=== PATIENT | female | born 1970 | race African-American/Black ===

== ENCOUNTER 2018-03-17 13:43 | Emergency (ER) | payer OTHER ==
[2018-03-17 17:13] LABS: Absolute Lymphocytes (CBC) 2.6 K/uL (0.7-4.9); Absolute Monocytes 0.6 K/uL (0.1-1.3); Absolute Neutrophil 2.7 K/uL (1.8-8.0); Basophils % 0.5 % (0-1.3); Eosinophils % 1.2 % (0-4.4); Hematocrit 34.3 % (36.0-45.0); Lymphocytes % 44.1 % (15.3-44.8); MPV 9.1 fL (7.6-11.3); Monocytes % 9.5 % (3.3-12.3)
[2018-03-17 17:18] LABS: Protime INR 1.01
--- NOTE | 2018-03-17 17:19 | RAD REPORT ---
EXAM DESCRIPTION: US - Extremity Venous Uni Ltd - 03/17/2018 4:49 pm CLINICAL HISTORY: Right leg pain and swelling COMPARISON: None. TECHNIQUE: Real-time sonographic evaluation of the right lower extremity deep venous systems was per formed. FINDINGS: Normal compressibility, flow augmentation, phasic flow and spontaneous flow are identified in the right lower extremity common femoral and superficial femoral veins. Hypoechoic material is pr esent filling all or most of the right popliteal vein. On Doppler evaluation little blood flow was id entifiable through this region. No DVT seen at the ankle veins. No mass or abnormal fluid collection in the soft tissues. Exam is limited by body habitus. IMPRESSION: Right popliteal vein acute deep venous thrombosis.
[2018-03-17 17:27] LABS: Potassium 4.2 mmol/L (3.5-5.1)
--- NOTE | 2018-03-17 17:36 | ER ---
Nurse's Notes [facility] Name: Mahsa Joseph Age: 47 yrs Sex: Female : 1970 Arrival Date: 03/17/2018 Time: 13:46 Bed Treatment Private MD: MELONY HALL Diagnosis: Acute embolism and thrombosis of deep veins of lower extremity Presentation: 03/17 14:02 Presenting complaint: Patient states: i was at physical therapy for L foot injury; the hj R foot is very swollen and my calf is swollen; and its painful and tender to the touch;. Transition of care: patient was not received from another setting of care. Onset of symptoms was March 17, 2018. Risk Assessment: Do you want to hurt yourself or someone else? Patient reports no desire to harm self or others. Initial Sepsis Screen: Does the patient meet any 2 criteria? No. Patient's initial sepsis screen is negative. Does the patient have a suspected source of infection? No. Patient's initial sepsis screen is negative. Care prior to arrival: None. 14:02 Method Of Arrival: Ambulatory 14:02 Acuity: MILAGROS 3 hj Triage Assessment: 14:05 General: Appears in no apparent distress. uncomfortable, Behavior is calm, cooperative, hj appropriate for age. Pain: Complains of pain in right leg. 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 - Social history:: Smoking status: Patient/guardian denies using tobacco, Patient/guardian denies using alcohol. - Ebola Screening: : Patient negative for fever greater than or equal to 101.5 degrees Fahrenheit, and additional compatible Ebola Virus Disease symptoms Patient denies exposure to infectious person Patient denies travel to an Ebola-affected area in the 21 days before illness onset. Screenin:05 Abuse screen: Denies threats or abuse. Denies injuries from another. Nutritional hj screening: No deficits noted. Tuberculosis screening: No symptoms or risk factors identified. Fall Risk None identified. Assessment: 15:09 General: Appears in no apparent distress. comfortable, Behavior is calm, cooperative. mg2 Pain: Complains of pain in right foot and right leg Pain does not radiate. Pain currently is 7 out of 10 on a pain scale. Quality of pain is described as aching, Pain began gradually, 2-3 days ago. Is intermittent. Neuro: Level of Consciousness is awake, alert, obeys commands, Oriented to person, place, time, situation. Cardiovascular: Capillary refill < 3 seconds Patient's skin is warm and dry. Respiratory: Airway is patent Respiratory effort is even, unlabored, Respiratory pattern is regular, symmetrical. GI: No signs and/or symptoms were reported involving the gastrointestinal system. : No signs and/or symptoms were reported regarding the genitourinary system. EENT: No signs and/or symptoms were reported regarding the EENT system. Derm: Skin is intact, is healthy with good turgor, Skin is pink, warm \T\ dry. normal. Musculoskeletal: Circulation, motion, and sensation intact. Capillary refill < 3 seconds, Swelling present in right foot. 16:04 Reassessment: patient sent to ultrasound. mg2 18:28 Reassessment: Patient appears in no apparent distress at this time. Patient and/or mg2 family updated on plan of care and expected duration. Pain level reassessed. Patient is alert, oriented x 3, equal unlabored respirations, skin warm/dry/pink. Vital Signs: 14:05 BP 131 / 68; Pulse 59; Resp 18; Temp 97.8(TE); Pulse Ox 99% on R/A; Weight 124.74 kg; Height 5 ft. 6 in. (167.64 cm); Pain 4/10; 18:29 BP 128 / 78; Pulse 60; Resp 18; Pulse Ox 100% on R/A; Pain 2/10; mg2 14:05 Body Mass Index 44.39 (124.74 kg, 167.64 cm) ED Course: 13:46 Patient arrived in ED. rg4 13:46 MELONY HALL is Private Physician. rg4 14:04 Triage completed. 14:05 Arm band placed on right wrist. 14:07 Patient has correct armband on for positive identification. Bed in low position. Call light in reach. Side rails up X 1. Adult w/ patient. 15:03 Esau King, RN is Primary Nurse. mg2 15:10 No provider procedures requiring assistance completed. mg2 15:16 Agustin Melvin PA is PHCP. jr8 15:16 Ricardo Rao MD is Attending Physician. jr8 16:06 Patient taken to ultrasound. via stretcher. lc3 16:51 US Extremity Venous Unilateral Ltd In Process Unspecified. EDMS 16:58 Ultrasound completed. Patient tolerated well. lc3 17:12 Inserted saline lock: 20 gauge in left antecubital area, using aseptic technique. Blood mg2 collected. 17:35 MELONY HALL is Referral Physician. jr8 18:29 IV discontinued, intact, bleeding controlled, No redness/swelling at site. Pressure mg2 dressing applied. Administered Medications: 18:28 Drug: Eliquis 10 mg Route: PO; mg2 18:28 Follow up: Response: No adverse reaction; Medication administered at discharge. mg2 Outcome: 17:36 Discharge ordered by MD. jr8 18:29 Discharged to home ambulatory. mg2 18:29 Condition: stable 18:29 Discharge instructions given to patient, Instructed on discharge instructions, follow up and referral plans. medication usage, Demonstrated understanding of instructions, follow-up care, medications, Prescriptions given X 1. 18:29 Patient left the ED. mg2 Signatures: Dispatcher [employer] EDMA Agustin Melvin PA PA jr8 Sina Amaro, RN RN Robert Garcia Rubi rg4 Esau King, RN RN mg2 Corrections: (The following items were deleted from the chart) 14:09 14:05 Pulse 59bpm; Resp 18bpm; Pulse Ox 99% RA; Temp 97.8F Temporal; 124.74 kg; Height hj 5 ft. 6 in.; BMI: 44.3; Pain 4/10; hj
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
[2018-03-17] MEDS ORDERED: APIXABAN 5 MG TABLET ONE (18:24)
== END 2018-03-17 18:29 | disposition home or self-care (01) ==
LOC: ER 13:43
DX: I82.4Z1 Acute embolism and thrombosis of unspecified deep veins of right distal lower extremity (principal); I10 Essential (primary) hypertension; E03.9 Hypothyroidism, unspecified
CPT/HCPCS: 36415; 80048; 85025; 85610; 85730; 93971; 99284

== ENCOUNTER 2018-04-19 16:05 | Emergency (ER) | payer OTHER ==
--- NOTE | 2018-04-19 17:58 | EDPHYS ---
Physician Documentation [facility] Name: Mahsa Joseph Age: 47 yrs Sex: Female : 1970 Arrival Date: 04/19/2018 Time: 16:08 Bed 15 Private MD: MELONY HALL ED Physician Deshaun Delacruz HPI: 04/19 17:54 This 47 yrs old Black Female presents to ER via Ambulatory with complaints of Rash. jr8 17:54 The patient's rash thought to be caused by an unknown cause. The rash is located on the jr8 back and chest. The rash can be described as papular. Onset: The symptoms/episode began/occurred acutely, yesterday. Associated signs and symptoms: Pertinent positives: itching. Severity of symptoms: At their worst the symptoms were mild in the emergency department the symptoms are unchanged. The patient has not experienced similar symptoms in the past. The patient has not recently seen a physician. Historical: - Allergies: 16:24 Claritin; la1 - PMHx: 16:24 Hypertension; Hypothyroidism; la1 - Immunization history:: Adult Immunizations up to date. - Social history:: Smoking status: Patient/guardian denies using tobacco. - Ebola Screening: : No symptoms or risks identified at this time. ROS: 17:54 Eyes: Negative for injury, pain, redness, and discharge, ENT: Negative for injury, jr8 pain, and discharge, Neck: Negative for injury, pain, and swelling, Cardiovascular: Negative for chest pain, palpitations, and edema, Respiratory: Negative for shortness of breath, cough, wheezing, and pleuritic chest pain, Abdomen/GI: Negative for abdominal pain, nausea, vomiting, diarrhea, and constipation, Back: Negative for injury and pain, MS/Extremity: Negative for injury and deformity, Neuro: Negative for headache, weakness, numbness, tingling, and seizure. 17:54 Skin: Positive for rash, of the chest and back. Exam: 17:54 Eyes: Pupils equal round and reactive to light, extra-ocular motions intact. Lids and jr8 lashes normal. Conjunctiva and sclera are non-icteric and not injected. Cornea within normal limits. Periorbital areas with no swelling, redness, or edema. ENT: Nares patent. No nasal discharge, no septal abnormalities noted. Tympanic membranes are normal and external auditory canals are clear. Oropharynx with no redness, swelling, or masses, exudates, or evidence of obstruction, uvula midline. Mucous membranes moist. Neck: Trachea midline, no thyromegaly or masses palpated, and no cervical lymphadenopathy. Supple, full range of motion without nuchal rigidity, or vertebral point tenderness. No Meningismus. Cardiovascular: Regular rate and rhythm with a normal S1 and S2. No gallops, murmurs, or rubs. Normal PMI, no JVD. No pulse deficits. Respiratory: Lungs have equal breath sounds bilaterally, clear to auscultation and percussion. No rales, rhonchi or wheezes noted. No increased work of breathing, no retractions or nasal flaring. Abdomen/GI: Soft, non-tender, with normal bowel sounds. No distension or tympany. No guarding or rebound. No evidence of tenderness throughout. Back: No spinal tenderness. No costovertebral tenderness. Full range of motion. MS/ Extremity: Pulses equal, no cyanosis. Neurovascular intact. Full, normal range of motion. Neuro: Awake and alert, GCS 15, oriented to person, place, time, and situation. Cranial nerves II-XII grossly intact. Motor strength 5/5 in all extremities. Sensory grossly intact. Cerebellar exam normal. Normal gait. 17:54 Skin: fine papular rash noted to upper chest and back. Not pustular or petechial. No other rashes noted . Vital Signs: 16:25 Pulse 65; Resp 18; Temp 97.4(TE); Pulse Ox 98% on R/A; Weight 116.12 kg; Height 5 ft. 7 la1 in. (170.18 cm); 16:28 BP 132 / 74; la1 16:25 Body Mass Index 40.09 (116.12 kg, 170.18 cm) la1 MDM: 17:21 Patient medically screened. jr8 17:54 Data reviewed: vital signs, nurses notes, and as a result, I will discharge patientaggie continue to observe the patient. Data interpreted: Pulse oximetry: on room air is 98 %. Interpretation: normal. Counseling: I had a detailed discussion with the patient and/or guardian regarding: the historical points, exam findings, and any diagnostic results supporting the discharge/admit diagnosis, the need for outpatient follow up, a family practitioner, to return to the emergency department if symptoms worsen or persist or if there are any questions or concerns that arise at home. Administered Medications: No medications were administered Disposition: 18:57 Co-signature as Attending Physician, Deshaun Delacruz MD Available for consultation at ps1 all times . Disposition: 04/19/18 17:57 Discharged to Home. Impression: Rash and other nonspecific skin eruption. - Condition is Stable. - Discharge Instructions: Rash. - Prescriptions for Prednisone 20 mg Oral Tablet - take 1 tablet by ORAL route once daily for 5 days; 5 tablet. - Medication Reconciliation Form, Thank You Letter, Antibiotic Education, Prescription Opioid Use form. - Follow up: MELONY HALL; When: 5 - 6 days; Reason: Recheck today's complaints, Continuance of care, Re-evaluation by your physician. - Problem is new. - Symptoms have improved. Signatures: Rell Perez, WINCH STRIPPER WINCH STRIPPER Agsutin Morrison PA PA jr8 James Gregory RN RN la1 Deshaun Delacruz MD MD ps1 Corrections: (The following items were deleted from the chart) 18:29 17:57 04/19/2018 17:57 Discharged to Home. Impression: Rash and other nonspecific skin em eruption. Condition is Stable. Forms are Medication Reconciliation Form, Thank You Letter, Antibiotic Education, Prescription Opioid Use. Follow up: MELONY HALL; When: 5 - 6 days; Reason: Recheck today's complaints, Continuance of care, Re-evaluation by your physician. Problem is new. Symptoms have improved. jr8
--- NOTE | 2018-04-19 17:58 | ER ---
Nurse's Notes [facility] Name: Mahsa Joseph Age: 47 yrs Sex: Female : 1970 Arrival Date: 04/19/2018 Time: 16:08 Bed 15 Private MD: MELONY HALL Diagnosis: Rash and other nonspecific skin eruption Presentation: 04/19 16:24 Presenting complaint: Patient states: I have had an itchy rash on both sides of chest la1 and around my back on my left side since yesterday. Transition of care: patient was not received from another setting of care. Onset of symptoms was April 19, 2018. Risk Assessment: Do you want to hurt yourself or someone else? Patient reports no desire to harm self or others. Initial Sepsis Screen: Does the patient meet any 2 criteria? No. Patient's initial sepsis screen is negative. Does the patient have a suspected source of infection? No. Patient's initial sepsis screen is negative. Care prior to arrival: None. 16:24 Method Of Arrival: Ambulatory la1 16:24 Acuity: MILAGROS 4 la1 Historical: - Allergies: 16:24 Claritin; la1 - PMHx: 16:24 Hypertension; Hypothyroidism; la1 - Immunization history:: Adult Immunizations up to date. - Social history:: Smoking status: Patient/guardian denies using tobacco. - Ebola Screening: : No symptoms or risks identified at this time. Screenin:58 Abuse screen: Denies threats or abuse. Nutritional screening: No deficits noted. em Tuberculosis screening: No symptoms or risk factors identified. 17:58 Fall Risk None identified. em Assessment: 18:00 General: Appears in no apparent distress. comfortable, Behavior is calm, cooperative, em rash that started yesterday evening, reports it being itchy. Pain: Denies pain. Neuro: Level of Consciousness is awake, alert, obeys commands, Oriented to person, place, time, situation. Cardiovascular: Patient's skin is warm and dry. Respiratory: Airway is patent Respiratory effort is even, unlabored, Respiratory pattern is regular, symmetrical, Breath sounds are clear bilaterally. Denies shortness of breath. GI: Abdomen is flat. Derm: Skin is intact, Rash noted that is itchy, red, raised, on chest and back. Musculoskeletal: Range of motion: intact in all extremities. 18:00 Reassessment: I agree with assessment completed by Rell Perez LVN . aa5 Vital Signs: 16:25 Pulse 65; Resp 18; Temp 97.4(TE); Pulse Ox 98% on R/A; Weight 116.12 kg; Height 5 ft. 7 la1 in. (170.18 cm); 16:28 BP 132 / 74; la1 16:25 Body Mass Index 40.09 (116.12 kg, 170.18 cm) la1 ED Course: 16:08 Patient arrived in ED. mr 16:08 MELONY HALL is Private Physician. mr 16:24 Arm band placed on left wrist. la1 16:25 Triage completed. la1 17:21 Agustin Melvin PA is PHCP. jr8 17:21 Deshaun Delacruz MD is Attending Physician. jr8 17:48 Rell Perez LVN is Primary Nurse. em 17:56 MELONY HALL is Referral Physician. jr8 17:58 Patient has correct armband on for positive identification. Bed in low position. Call em light in reach. Side rails up X 1. 18:29 No provider procedures requiring assistance completed. Patient did not have IV access em during this emergency room visit. Administered Medications: No medications were administered Outcome: 17:57 Discharge ordered by . jr8 18:29 Discharged to home ambulatory. em 18:29 Condition: good 18:29 Discharge instructions given to patient, Instructed on discharge instructions, follow up and referral plans. medication usage, Demonstrated understanding of instructions, follow-up care, medications, Prescriptions given X 1. 18:29 Patient left the ED. em Signatures: Adrianne Verma mr Perez MARVA Zacarias LVN em Anastasiya Cates, RN RN aa5 Agustin Melvin PA PA jrJames Valentine RN RN la1
== END 2018-04-19 18:29 | disposition home or self-care (01) ==
LOC: ER 16:05
DX: R21 Rash and other nonspecific skin eruption (principal)
CPT/HCPCS: 99282

== ENCOUNTER 2020-07-21 10:50 | Day surgery (SDC) | payer OTHER, SELFPAY ==
[2020-07-18 15:14] LABS: Protime INR 0.96
--- NOTE | 2020-07-18 15:21 | RAD REPORT ---
EXAM DESCRIPTION: RAD - Chest Pa And Lat (2 Views) - 07/18/2020 3:07 pm CLINICAL HISTORY: preop, pending cardiac catheterization COMPARISON: June 2015 TECHNIQUE: Frontal and lateral views of the chest were obtained. FINDINGS: The lungs are clear. Heart size is normal and central vasculature is within normal limit s. No pleural effusion or pneumothorax seen. No acute bone finding. Right convex scoliotic curvatur e spans the entire length of the thoracic spine. Endplate spurring changes are present No aortic abno rmality. IMPRESSION: No acute cardiopulmonary process.
[2020-07-18 15:23] LABS: Absolute Lymphocytes (CBC) 2.5 K/uL (0.7-4.9); Basophils % 0.4 % (0-1.3); Hematocrit 36.5 % (36.0-45.0); Lymphocytes % 60.5 % (15.3-44.8); MPV 8.8 fL (7.6-11.3); RBC Red Blood Cell Count 3.72 M/uL (3.86-4.86)
[2020-07-18 15:25] LABS: Potassium 4.5 mmol/L (3.5-5.1)
[2020-07-18 23:35] LABS: Blood Morphology Comment NOTED (NOT SEEN); Platelet Estimate ADEQ
[2020-07-18 23:36] LABS: Burr Cells 2+
--- NOTE | 2020-07-19 11:19 | EKG ---
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
[2020-07-21] MEDS ORDERED: NA CHLORIDE 0.9% 500 ML ONE (11:14)
[2020-07-21] MEDS ORDERED: HEPARIN 5000 UNIT/ML 1 ML VIAL ONE (11:15)
[2020-07-21] MEDS ORDERED: HEPA 1000U/500MLS 2,000 UNIT/1,000 ML BAG IV ONE (11:15)
[2020-07-21] MEDS ORDERED: VERAPAMIL HCL 10 MG/4 ML VIAL IV ONE (11:16)
[2020-07-21] MEDS ORDERED: FENTANYL CITR 100 MCG/2 ML ONE (11:16)
[2020-07-21] MEDS ORDERED: MIDAZOLAM HCL 2 MG/2 ML INJ ONE (11:16)
[2020-07-21] MEDS ORDERED: ATROPINE SULF 1 MG/10 ML SYR IV ONE (11:17)
[2020-07-21] MEDS ORDERED: NITROGLYCERIN 100 MCG/ML SYR (for cath lab use only) IV ONE (11:17)
[2020-07-21] MEDS ORDERED: NITROGLYCERIN/D5W 25 MG/250 ML BTL IV ONE (11:17)
[2020-07-21] MEDS ORDERED: LIDOCAINE 1% 20 ML MDV ONE (11:17)
[2020-07-21] MEDS ORDERED: HEPARIN 10,000 UNIT/10 ML VIAL IV ONE (11:17)
[2020-07-21 11:38] VITALS: TEMP 96.4
[2020-07-21 13:29] VITALS: O2SAT 99
[2020-07-21 16:46] VITALS: BP 110/78
--- NOTE | 2020-07-21 22:53 | OP ---
Date of Procedure: 07/21/2020 Surgeon: KIERA SAGE Procedure Performed: Selective coronary angiogram. Access: Right radial artery 6-B[place] closed with TR band. Indication: Chest pain with abnormal stress test. Complications: None. Bleeding: Less than 10 mL. Description Of Procedure: After risks, benefits, and alternatives were explained, the patient agreed to the procedure and signed informed consent. The patient was brought to the cardiac catheterizatio n laboratory, prepped and draped in usual sterile fashion. Then, we accessed right radial artery usi ng pediatric micropuncture kit and placed a 6-Bah[place]i slender sheath. Subsequently, took a 5-[place]ah[place]i T iger 4.0 catheter into the aortic root over a J-wire, engaged left main and right coronary artery, to ok standard views and then removed the catheter and the sheath, and placed TR band with good hemostas is. Findings: 1.Left main is large and normal. 2.LAD is large and normal. 3.Left circumflex is a very large and dominant vessel, and normal. 4.RCA, small, nondominant, no disease. Conclusion: Normal coronary arteries and falsely positive stress test. Plans: Medical management. SR/MODL Voice ID: [id number] Report ID: [id number]
== END 2020-07-21 15:28 | disposition home or self-care (01) ==
LOC: CCL 10:50
PROVIDERS: ATTEND Internal Medicine
DX: R94.39 Abnormal result of other cardiovascular function study (principal); R07.9 Chest pain, unspecified; I10 Essential (primary) hypertension; E78.5 Hyperlipidemia, unspecified; Z20.822 Contact with and (suspected) exposure to COVID-19; Z01.810 Encounter for preprocedural cardiovascular examination; Z82.49 Family history of ischemic heart disease and other diseases of the circulatory system
CPT/HCPCS: 93005; 85025; 80048; 36415; 85610; 85730; 71046; 93454; U0002; C1893; J1644 ×2; J2250; J3010; J7040

== ENCOUNTER 2020-08-24 05:56 | Inpatient (IN) | payer OTHER, SELFPAY ==
[2020-08-19 08:58] LABS: Absolute Lymphocytes (CBC) 1.5 K/uL (0.7-4.9); Basophils % 0.3 % (0-1.3); Hematocrit 35.3 % (36.0-45.0); Lymphocytes % 45.1 % (15.3-44.8); MPV 8.3 fL (7.6-11.3); RBC Red Blood Cell Count 3.65 M/uL (3.86-4.86)
[2020-08-19 09:12] LABS: Protime INR 0.97
[2020-08-19 09:17] LABS: Potassium 4.7 mmol/L (3.5-5.1)
[2020-08-19 10:52] LABS: Blood Morphology Comment NOT SEEN (NOT SEEN); Platelet Estimate ADEQ; White Blood Cell Scan OK (OK)
[2020-08-24] MEDS ORDERED: Ringers Lactate 1,000 ML IV ONE ×3 (06:29→12:10)
[2020-08-24] MEDS ORDERED: CEFAZOLIN/SWI 1gm 1 GM/10 ML SYR ONE ×2 (06:29→07:07)
[2020-08-24] MEDS ORDERED: LIDOCAINE 2% MPF 5 ML VIAL ONE (06:30)
[2020-08-24] MEDS ORDERED: MIDAZOLAM HCL 2 MG/2 ML INJ ONE (06:30)
[2020-08-24] MEDS ORDERED: FENTANYL CITR 100 MCG/2 ML ONE (06:30)
[2020-08-24] MEDS ORDERED: propofoL 200 MG/20 ML VIAL IV ONE (06:30)
[2020-08-24] MEDS ORDERED: LIDOCAINE 1% MPF 5 ML VIAL ONE (06:36)
[2020-08-24] MEDS ORDERED: NS 0.9% VIAL 10 ML ONE (06:36)
[2020-08-24] MEDS ORDERED: BUPIVACAINE 0.25% PF 30 ML VIAL ONE (06:36)
[2020-08-24] MEDS ORDERED: dexAMETHasone 4 MG/ML VIAL ONE (06:36)
[2020-08-24] MEDS ORDERED: HYDROMORPHONE HCL 1 MG/ML INJ ONE (07:31)
[2020-08-24] MEDS ORDERED: ONDANSETRON 4 MG/2 ML VIAL ONE (07:42)
[2020-08-24] MEDS ORDERED: KETAMINE HCL 500 MG/5 ML VIAL ONE (07:59)
[2020-08-24] MEDS ORDERED: TRANEXAMIC ACID 1,000 MG in NA CHLORIDE 0.9% 50 ML IV SCH (08:00)
[2020-08-24] MEDS ORDERED: KETOROLAC 30 MG/ML INJ ONE (10:39)
[2020-08-24] MEDS: MEPERIDINE HCL 25 MG/ML SYR ONE ×2 (11:10→11:50)
--- NOTE | 2020-08-24 11:17 | P.BOP ---
Preoperative diagnosis: right knee osteoarthritis Postoperative diagnosis: same Primary procedure: right total knee arthroplasty Earthmoving Labourer: NONE,NONE Estimated blood loss: 30 cc Specimen: right knee bone remnants Anesthesia: General Complications: None Drain(s): Urinary catheter Implants: [employer] Baylee Persona 8 STD femur, F tibia w/ stem, 32 patella, 10 MC poly Fluids & blood products: per anesthesia record; TT: 118 mins @ 300 mmHg Transferred to: Recovery Room Condition: Good
[2020-08-24] MEDS ORDERED: DOCUSATE NA 100 MG CAP PO PRN (11:21)
[2020-08-24] MEDS ORDERED: ONDANSETRON 4 MG/2 ML VIAL IV PRN (11:21)
[2020-08-24] MEDS ORDERED: LABETALOL 20 MG/4ML SYRINGE IV ONE (11:22)
[2020-08-24] MEDS ORDERED: TRAMADOL HCL 50 MG TAB PO PRN (11:25)
[2020-08-24] MEDS: HYDROMORPHONE HCL 1 MG/ML INJ ONE ×2 (12:00→12:05)
[2020-08-24 12:09] LABS: Hematocrit 34.5 % (36.0-45.0)
--- NOTE | 2020-08-24 12:18 | RAD REPORT ---
EXAM DESCRIPTION: RAD - Knee Right 2 View - 08/24/2020 11:44 am CLINICAL HISTORY: Post Opright total knee prosthesis COMPARISON: Knee Right 2 View dated 04/28/2020 FINDINGS: Right total knee prosthesis has been placed. No suspicious or unexpected bone, implant, joint or soft tissue finding.
--- OUTSIDE RECORDS SUMMARY | 2020-08-24 12:38 | XMS REPORT | Continuity of Care Document ---
:1970 Author Organization [facility] t Address [address] [place] [address] Care Team Providers Name Role Phone DESTINY Attending Clinician Unavailable CHASE Attending Clinician Unavailable Problems Condition Condition Condition Status Onset Resolution Last Treating Co mments Source Name Details Category Date Date Treatment Clinician Date Inflammato Problem Active 2020-07-23 M emoria ry 02:45:23 l polyarthro Eb n noé Inflammato ry polyarthro noé Active Problem 07/23/2020 [facility] Elevated Problem Active 2020-07-23 Mem oria sed rate 02:45:23 l Elevated Eb n sed rate Active Problem 07/23/2020 [facility] Seronegati Problem Active 2020-07-23 M emoria ve 02:45:23 l rheumatoid Eb n arthritis Seronegati of right ve knee rheumatoid arthritis of right knee Active Problem 07/23/2020 [facility] Seronegati Problem Active 2020-07-23 M emoria ve 02:45:23 l rheumatoid Eb n arthritis Seronegati of left ve knee rheumatoid arthritis of left knee Active Problem 07/23/2020 [facility] Osteoarthr Problem Active 2020-07-23 M emoria osis 02:45:23 l involving Jas multiple Osteoarthr sites but osis not involving designated multiple as sites but generalize not d designated as generalize d Active Problem 07/23/2020 [facility] Pain in Problem Active 2020-07-23 Carmelo loulou joint, 02:45:23 l multiple Pain in Sadia nn sites joint, multiple sites Active Problem 07/23/2020 [facility] Encounter Problem Active 2020-07-23 Me moria for 02:45:23 l long-term [place] (current) Encounter use of for other long-term medication (current) s use of other medication s Active Problem 07/23/2020 [facility] Other Problem Active 2020-07-23 Memor ia specified 02:45:23 l abnormal Other [place] findings specified of blood abnormal chemistry findings of blood chemistry Active Problem 07/23/2020 [facility] Rheumatoid Problem Active 2020-07-23 M emoria arthritis 02:45:23 l of [place] multiple Rheumatoid sites with arthritis involvemen of t of other multiple organs and sites with systems involvemen t of other organs and systems Active Problem 07/23/2020 [facility] Other Diagnosis Active 2019-11-26 Mem oria specified 02:45:15 l counseling Other Sadia nn specified counseling Active Diagnosis 11/26/2019 [facility] SARS-assoc Diagnosis Active 2019-10-07 Memoria iated 02:46:13 l coronaviru Eb n s exposure SARS-assoc iated coronaviru s exposure Active Diagnosis 10/07/2019 [facility] Iritis Diagnosis Active 2020-06-15 Mem oria 02:46:04 l Iritis Jas Active Diagnosis 06/15/2020 [facility] Renal Diagnosis Active 2020-03-18 Mem oria insufficie 03:45:36 l ncy Renal Jas insufficie ncy Active Diagnosis 03/18/2020 [facility] Pain in Diagnosis Active 2018-10-18 Me moria left knee 02:45:36 l Pain in [place] left knee Active Diagnosis 10/18/2018 [facility] Constipati Problem Active 2020-07-23 M emoria on 02:45:23 l Jas Constipati on Active Problem [facility] Screening Diagnosis Active 2020-06-15 Memoria for 02:46:04 l tuberculos Eb n is Screening for tuberculos is Active Diagnosis 06/15/2020 [facility] Anemia Diagnosis Active 2020-06-15 Mem oria 02:46:04 l Anemia Jas Active Diagnosis 06/15/2020 [facility] Raised Problem Active 2020-07-23 Memor ia antibody 02:45:23 l titer Raised [place] antibody titer Active Problem 07/23/2020 [facility] Osteoarthr Problem Active 2020-07-23 M emoria itis of 02:45:23 l multiple [place] joints, Osteoarthr unspecifie itis of d multiple osteoarthr joints, itis type unspecifie d osteoarthr itis type Active Problem 07/23/2020 [facility] 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) Active Problem 07/23/2020 [facility] Drug or Problem Active 2020-07-23 Carmelo loulou medicinal 02:45:23 l substance Drug or Herm sue causing medicinal adverse substance effect in causing therapeuti adverse c use, effect in initial therapeuti encounter c use, initial encounter Active Problem 07/23/2020 [facility] Fatigue, Problem Active 2020-07-23 Mem oria unspecifie 02:45:23 l d type Fatigue, Eb n unspecifie d type Active Problem 07/23/2020 [facility] Pain in Problem Active 2020-07-23 Carmelo loulou right knee 02:45:23 l Pain in J[place] right knee Active Problem 07/23/2020 [facility] Vitamin D Vitamin D Problem Active Uni vers deficiency deficiency it [facility] of [place] [facility] Leg Leg Problem Active [facility] swelling swelling [facility] of [place] [facility] DVT, DVT, Problem Active [facility] bilateral bilateral ity of lower [place] limbs limbs Physici ans Malabsorpt Malabsorpt Problem Active U nivers ion ion [facility] [place] [facility] Malnutriti Malnutriti Problem Active [facility] n[facility] on on [facility] [place] [facility] Osteoporos Osteoporos Problem Active U nivers is is [facility] [place] [facility] Malabsorpt Malabsorpt Problem Active U nivers ion due to ion due to it y of intoleranc intoleranc [place], not e, not Physici elsewhere elsewhere ans classified classified Allergies, Adverse Reactions, Alerts Allergy Allergy Status Severity Reaction(s) Onset Inactive Treating Comm ents Source Name Type Date Date Clinician N.K.D.A. N.K.D.A. Active Info Not Carmelo loulou Available 3-30 l 00:00: [place] 00 Medications Ordered Filled Start Stop Current Ordering Indication Dosage Frequency Signature Comments Components Source Medication Medication Date Date Medication? Clinician (SIG) Name Name Levothyroxi Yes Latisha 1 tablet Memoria ne Sodium 06-15 Fredy on an l 02:46: empty Jas stomach in the morning Multivitami Yes Latisha as Me moria n 06-15 Fredy directed l 02:46: Jas Tramadol Yes Latisha 1 tablet M emoria HCl 06-15 Fredy as needed l 02:46: Jas Metoprolol Yes Latisha 1 tablet Memoria Tartrate 06-15 Fredy with food l 02:46: Jas Vitamin D Yes Latisha 1 tablet Memoria 06-15 Fredy l 02:46: Jas Clarinex-D Yes Latisha not Mem oria 24 Hour 06-15 Fredy defined l 02:46: Jas Eliquis Yes Latisha as Memori a 06-15 Fredy directed l 02:46: Jas Acetaminoph Yes Latisha 1 tablet Memoria en-Codeine 06-15 Fredy as needed l #3 02:46: Jas Vitamin A Yes Latisha not Carmelo loulou 06-15 Fredy defined l 02:46: Jas Methotrexat Yes Latisha 5 tablets Memoria e 06-15 Fredy l 02:46: Jas Orencia Yes Latisha 1 ml Memori a ClickJect 06-15 Fredy l 02:46: Jas Amlodipine Yes Latisha 1 tablet Memoria Besylate 06-15 Fredy l 02:46: Jas Vitamin Yes Latisha 1 tablet Me moria B-12 06-15 Fredy l 02:46: Jas Simvastatin Yes Latisha TAKE 1 Memoria 06-15 Fredy TABLET BY l 02:46: MOUTH Jas EVERY DAY IN THE EVENING Leflunomide 2019-03 Yes Latisha 1 tablet Memoria 0-13 Fredy l 00:00: Jas Methotrexat Yes Latisha 6 tablets Memoria e 9 Fredy l 02:45: Jas 15 Amlodipine 2020-0 Yes Latisha 1 tablet Memoria Besylate 9-19 Fredy l 02:45: 15 Vitamin 2020-0 Yes Latisha 1 tablet Me moria B-12 9-19 Fredy l 02:45: 15 Folic Acid 2020-0 Yes Apple 3 tablets Memoria 4-08 Vo l 00:00: 00 Folic Acid 2020-0 Yes Latisha 3 tablet Memoria 1-13 Fredy l 00:00: 00 Folic Acid 2020-0 Yes Latisha 3 tablet Memoria 1-13 Fredy l 00:00: 00 Orencia 2020-0 Yes Apple 1 ml Carmelo loulou ClickJect 1-07 Vo l 00:00: 00 Folic Acid 2019-0 Yes Apple 1 tablet Memoria 8-03 Vo l 02:45: 36 Orencia 2019-0 Yes Apple 1 ml Carmelo loulou ClickJect 5-24 Vo l 00:00: 00 Orencia 2019-0 Yes Latisha 1 ml Memori a ClickJect 5-23 Fredy l 00:00: Folic Acid 2019-0 Yes Apple 1 tablet Memoria 3-26 Vo l 00:00: 00 Vital Signs Vital Name Observation Time Observation Value Comments Source Systolic blood 2020-05-25 155 mm[Hg] Location: [facility] 13:07:00 Position: [place] [facility] S[facility] Diastolic blood 2020-05-25 82 mm[Hg] Location: [facility] 13:07:00 Position: [place] [facility] S[facility] Body height 2020-05-25 66 [in_us] [facility] 13:07:00 [place] [facility] Weight 2020-05-25 188 [lb_av] [facility] 13:07:00 [place] [facility] Body mass index 2020-05-25 30.34 kg/m2 [facility] o f (BMI) [Ratio] 13:07:00 [facility] Body temperature 2020-05-25 99.4 [degF] Method: [facility] 13:07:00 Temporal [place] [facility] Heart Rate 2020-05-25 69 /min [facility] 13:07:00 [place] [facility] BP Systolic 2018-12-17 120 mm[Hg] [facility] Position: [place] [facility] S[facility] BP Diastolic 2018-12-17 69 mm[Hg] Location: [facility] 09:44:00 Position: [place] [facility] Sitting Height 2018-12-17 66 [in_us] [facility] 09:44:00 [place] [facility] Weight 2018-12-17 196.6 [lb_av] [facility] 09:44:00 [place] [facility] Body Mass Index 2018-12-17 31.73 kg/m2 University o f Calculated 09:44:00 [place] [facility] Temperature 2018-12-17 97.5 [degF] Method: Oral [facility] 09:44:00 [place] [facility] Heart Rate 2018-12-17 57 /min [facility] 09:44:00 [place] [facility] Weight 2018-08-07 [facility] 19:15:00 Height 2018-08-07 [facility] 19:15:00 Heart Rate 2018-08-07 [facility] 19:15:00 Diastolic (mm Hg) 2018-08-07 [facility] 19:15:00 Systolic (mm Hg) 2018-08-07 [facility] rmann 19:15:00 Weight 2018-07-02 [facility] 18:30:00 Height 2018-07-02 [facility] 18:30:00 Heart Rate 2018-07-02 [facility] 18:30:00 Diastolic (mm Hg) 2018-07-02 [facility] 18:30:00 Systolic (mm Hg) 2018-07-02 [facility] rmann 18:30:00 BP Systolic 2018-05-14 129 mm[Hg] [facility] 12:13:00 [place] [facility] BP Diastolic 2018-05-14 69 mm[Hg] University 12:13:00 [place] [facility] Height 2018-05-14 66 [in_us] [facility] 12:13:00 [place] [facility] Weight 2018-05-14 244 [lb_av] [facility] 12:13:00 [place] [facility] Body Mass Index 2018-05-14 39.38 kg/m2 University o f Calculated 12:13:00 [place] [facility] Temperature 2018-05-14 97.7 [degF] University 12:13:00 [place] [facility] Heart Rate 2018-05-14 54 /min [facility] 12:13:00 [place] [facility] Procedures Procedure Date / Time Performing Clinician Source Performed [Q] COMPREHENSIVE 2020-05-25 00:00:00 [facility] METABOLIC PANEL W/eGFR Physician s (REFL) [Q] QUESTASSURED 25-[place] 2020-05-25 00:00:00 [facility] VIT D, (D2,D3), LC/MS/MS Physici ans [QL] CBC (INCLUDES 2020-05-25 00:00:00 [facility] DIFF/PLT) Physicians [QL] FOLATE, SERUM 2020-05-25 00:00:00 [facility] Physicians [QL] HEMOGLOBIN A1c 2020-05-25 00:00:00 [facility] Physicians [QL] IRON AND TOTAL IRON 2020-05-25 00:00:00 [facility] BINDING CAPACITY Physicians [QL] LIPID PANEL 2020-05-25 00:00:00 [facility] Physicians [QL] PTH, INTACT 2020-05-25 00:00:00 [facility] (WITHOUT CALCIUM) Physicians [QL] TSH, 3RD GENERATION 2020-05-25 00:00:00 [facility] W/REFLEX TO FT4 Physicians [QL] VITAMIN A (RETINOL) 2020-05-25 00:00:00 [facility] Physicians [QL] VITAMIN B1, WHOLE 2020-05-25 00:00:00 [facility] BLOOD Physicians [QL] VITAMIN B12 2020-05-25 00:00:00 [facility] Physicians [QL] VITAMIN E 2020-05-25 00:00:00 [facility] (TOCOPHEROL) Physicians MA Bone Density DXA Dual 2018-12-17 00:00:00 [facility] [id number] Physicians [QLH] VITAMIN B1, WHOLE 2018-07-14 00:00:00 [facility] BLOOD Physicians US Extremity lower 2017-11-19 00:00:00 [facility] venous doppler bilat Physicians [id number] Encounters Start End Encounter Admission Attending Care Care Encounter Source Date/Time Date/Time Type Type Clinicians Facility Department ID 2020-07-21 2020-07-21 Outpatient PRL - PRL - [id number] eClinic 21:12:00 21:12:00 [facility] 2020-07-16 2020-07-16 Outpatient PRL - PRL - [id number] eClinic 09:17:00 09:17:00 [facility] y [facility] 2020-06-20 2020-06-20 Outpatient PRL - PRL - [id number] eClinic 19:17:00 19:17:00 [facility] 2020-06-14 2020-06-14 Outpatient JERED Nicolás RAMSAYU - [id number] eClinic 14:30:00 14:30:00 [facility] 2020-06-07 2020-06-07 Outpatient PRL - PRL - [id number] eClinic 21:19:00 21:19:00 [facility] 2020-05-31 2020-05-31 Outpatient PRL - PRL - [id number] eClinic 10:19:00 10:19:00 [facility] 2020-05-26 2020-05-26 Outpatient PRL - PRL - [id number] eClinic 11:46:00 11:46:00 [facility] 2020-05-25 2020-05-25 Appointmen DARIUSZ DIXON [id number] Univers 12:45:00 12:45:00 ANNA Sharp M.D. Invasive itScarlet M.D. [facility] (FLMIST) ans 2020-05-22 2020-05-22 Outpatient PRL - PRL - [id number] eClinic 13:17:00 13:17:00 [facility] 2020-05-05 2020-05-05 Outpatient PRL - PRL - [id number] eClinic 21:43:00 21:43:00 [facility] 2020-03-17 2020-03-17 Outpatient JERED - JERED - [id number] eClinic 09:20:00 09:20:00 [facility] 2020-03-02 2020-03-02 Outpatient PRL - PRL - [id number] eClinic 07:09:00 07:09:00 [facility] 2020-02-06 2020-02-06 Outpatient PRL - PRL - [id number] eClinic 19:59:00 19:59:00 [facility] 2020-01-31 2020-01-31 Outpatient PRL - PRL - [id number] eClinic 05:04:00 05:04:00 [facility] 2020-01-19 2020-01-19 Outpatient JERED - JERED - [id number] eClinic 13:50:00 13:50:00 [facility] 2019-12-27 2019-12-27 Outpatient PRL - PRL - [id number] eClinic 15:16:00 15:16:00 [facility] 2019-12-07 2019-12-07 Outpatient PRL - PRL - [id number] eClinic 20:33:00 20:33:00 [facility] 2019-12-04 2019-12-04 Outpatient JERED Nicolás RAMSAYU - [id number] eClinic 10:30:00 10:30:00 [facility] 2019-12-01 2019-12-01 Outpatient PRL - PRL - [id number] eClinic 16:32:00 16:32:00 [facility] 2019-11-23 2019-11-23 Outpatient PRL - PRL - [id number] eClinic 11:30:00 11:30:00 [facility] 2019-10-06 2019-10-06 Outpatient PRL - PRL - [id number] eClinic 19:56:00 19:56:00 [facility] 2019-10-04 2019-10-04 Outpatient PRL - PRL - [id number] eClinic 22:40:00 22:40:00 [facility] y [facility] 2019-09-27 2019-09-27 Outpatient PRL - PRL - [id number] eClinic 20:51:00 20:51:00 Rheumatol [facility] y [facility] 2019-09-04 2019-09-04 Outpatient JERED RAMSAYU - [id number] eClinic 12:00:00 12:00:00 [facility]umat[facility] 2019-09-03 2019-09-03 Outpatient PRL - PRL - [id number] eClinic 19:35:00 19:35:00 [facility]umat[facility] 2019-08-06 2019-08-06 Outpatient PRL - PRL - [id number] eClinic 05:38:00 05:38:00 [facility]umat[facility] 2019-07-24 2019-07-24 Outpatient PRL - PRL - [id number] eClinic 23:32:00 23:32:00 [facility]umat[facility] 2019-07-06 2019-07-06 Outpatient PRL - PRL - [id number] eClinic 21:47:00 21:47:00 Rheumat[facility] y [facility] 2019-06-30 2019-06-30 Outpatient JERED RAMSAYU - [id number] eClinic 14:44:00 14:44:00 [facility] 2019-06-30 2019-06-30 Outpatient PRL - PRL - [id number] eClinic 13:45:00 13:45:00 [facility] 2019-06-24 2019-06-24 AppointDARIUSZ Frost [id number] Univers 10:15:00 10:15:00 t; ANNA DIXON M.D. Scarlet M.D. [place] [facility] 2019-06-10 2019-06-10 Outpatient PRL - PRL - [id number] eClinic 19:45:00 19:45:00 [facility] 2019-05-18 2019-05-18 Outpatient JERED - JERED - [id number] eClinic 14:54:00 14:54:00 [facility]umat[facility] 2019-05-14 2019-05-14 Outpatient PRL - PRL - [id number] eClinic 11:41:00 11:41:00 [facility] 2019-04-13 2019-04-13 Outpatient JERED - JERED - [id number] eClinic 10:56:00 10:56:00 [facility] 2019-04-06 2019-04-06 Outpatient JERED - JERED - [id number] eClinic 11:52:00 11:52:00 [facility] 2019-03-30 2019-03-30 Outpatient JERED - JERED - [id number] eClinic 09:47:00 09:47:00 [facility] 2019-03-25 2019-03-25 Outpatient [id number] eClinic 12:01:00 12:01:00 [id number] alWorks [id number] 2019-03-23 2019-03-23 Outpatient JERED - JERED - [id number] eClinic 12:27:00 12:27:00 [facility] 2019-01-30 2019-01-30 Outpatient JERED - JERED - [id number] eClinic 16:31:00 16:31:00 [facility] 2018-12-17 2018-12-17 AppointDARIUSZ Frost [id number] Univers 09:00:00 09:00:00 t; ANNA DIXON M.D. Invasive Rl M.D. [facility] ([facility]) ans 2018-12-03 2018-12-03 Appointmen DARIUSZ DIXON UTP [id number] Univers 10:15:00 10:15:00 t; ANNA DIXON M.D. ity of [place], M.D. [place] [facility] 2018-09-08 2018-09-08 Outpatient JERED - JERED - [id number] eClinic 11:51:00 11:51:00 [facility] 2018-09-03 2018-09-03 Appointmen DARIUSZ DIXON UTP [id number] Univers 09:15:00 09:15:00 t; ANNA DIXON M.D. ity of [place], M.D. [place] [facility] 2018-08-07 2018-08-07 Outpatient JERED - JERED - [id number] eClinic 15:10:00 15:10:00 [facility] 2018-08-07 2018-08-07 Outpatient PRL - PRL - [id number] eClinic 14:15:00 14:15:00 [facility]umat[facility] 2018-07-17 2018-07-17 Outpatient JERED - JERED - [id number] eClinic 11:39:00 11:39:00 [facility]umat[facility] 2018-07-02 2018-07-02 Outpatient PRL - PRL - [id number] eClinic 13:30:00 13:30:00 Rheumat[facility] 2018-07-02 2018-07-02 Outpatient JERED - JERED - [id number] eClinic 09:45:00 09:45:00 [facility] 2018-05-14 2018-05-14 Appointmen DARIUSZ DIXON [place] [id number] Univers 10:15:00 10:15:00 t; ANNA DIXON M.D. Surgery Rl M.D. Specialty [place] as Physici ans 2018-02-26 2018-02-26 Appointjeff DIXONDARIUSZ UTP [id number] Univers 10:45:00 10:45:00 t; ANNA DIXON M.D. ity of [place], M.D. [place] [facility] 2018-01-15 2018-01-15 Appointjeff DARIUSZ DIXON UTP [id number] Univers 13:00:00 13:00:00 t; ANNA DIXON M.D. ity of [place], M.D. [place] [facility] 2017-12-11 2017-12-11 Appointjeff DARIUSZ DIXON UTP [id number] Univers 10:45:00 10:45:00 t; ANNA DIXON M.D. ity of [place], M.D. [place] [facility] 2017-11-13 2017-11-13 Appointjeff DARIUSZ DIXON UTP [id number] Univers 09:15:00 09:15:00 t; ANNA DIXON M.D. ity of [place], M.D. [place] [facility] 2017-09-11 2017-09-[facility] UTP [id number] Univers 09:30:00 09:30:00 t; GRECIA Jaime ity of [address] [facility] Physi ci RD ans 2017-07-31 2017-07-31 [facility] DARIUSZ DIXON UTP [id number] Univers 10:45:00 10:45:00 t; ANNA DIXON M.D. ity of [place], M.D. [place] [facility] ans 2017-02-04 2017-02-04 [facility] UTP [id number] Univers 09:00:00 09:00:00 t; GRECIA Jaime ity of [address] [facility] Physi ci RD ans 2017-01-02 2017-01-02 [facility] SHAIN-RIKLI DARIUSZ UTP [id number] Univers 13:30:00 13:30:00 t; GRECIA Jaime ity of [address] [facility], Physi ci RD ans 2017-01-02 2017-01-02 Appointmen DARIUSZ DIXON UTP [id number] Univers 11:15:00 11:15:00 t; ANNA DIXON M.D. ity of [place], M.D. [place] [facility] ans 2016-12-03 2016-12-03 Appointmen GINNY [facility] UTP [id number] Univers 09:00:00 09:00:00 t; GRECIA Jaime ity of [address] [place], [place], Physi ci RD ans 2016-10-31 2016-10-31 Appointmen DARIUSZ DIXON UTP [id number] Univers 13:15:00 13:15:00 t; ANNA DIXON M.D. ity of [place], M.D. [place] [facility] Results Test Description Test Time Test Comments Results Result Comments Source [QL] LIPID PANEL 2020-05-25 14:17:00 Test Item Value Reference Range Interpretation Comme nts CHOLESTEROL, TOTAL; Above 249 mg/dl <200 High Threshold (test code = 2093-3) HDL CHOLESTEROL; Normal 79 mg/dl See_Comment N [Au tomated message] The (test code = 2084-9) system which generated this result tra nsmitted reference range : > OR = 50. The referen ce range was not used to interpret this result as normal/abnormal . TRIGLYCERIDES; Normal (test 82 mg/dl <150 N code = 2571-8) LDL-CHOLESTEROL; Above High 151 {MG/DL SYEDA} Reference range: <100 Threshold (test code = Dahlia able range <100 mg/dL 84262-2) for primary pre vention; <70 mg/dL for p atients with CHD or amada betic patients with > or = 2 CHD risk factors. L DL-C is now calculated arvind messer the Darnell-Quintanilla calculation, wh ich is a validated novel method providing florence r accuracy than the Friede jayden equation in the estimation of LDL-C. Rylee n SS et al. ARLENE. 2013;310( 19): 5725-9381 (http://educati on.Cloudamize/fa q/ZRW927) CHOL/HDLC RATIO (test code = 3.2 {CALC} <5.0 N CHOL/HDLC RATIO) NON HDL CHOLESTEROL (test 170 {MG/DL SYEDA} <130 For patients with diabetes code = NON HDL CHOLESTEROL) plus 1 major ASCVD risk factor, treatin g to a non-HDL-C goal of <100 mg/dL (LDL-C of <70 mg/dL) is considered a therapeutic opt ion. [facility] Physicians[Q] COMPREHENSIVE METABOLIC PANEL W/eGFR (REFL) 2020-05-25 14:17:00 Test Item Value Reference Range Interpretation Comments GLUCOSE; Normal 77 mg/dl 65-99 N Fasting refe rence (test code = interval 1547-9) UREA NITROGEN 14 mg/dl 7-25 N (BUN) (test code = UREA NITROGEN (BUN)) CREATININE (test 0.87 mg/dl 0.50-1.05 N For patient s >49 years code = of age, the ref erence CREATININE) limitfor Creati nine is approximately 1 3% higher for peopleidentifie d as -Keira n. eGFR NON-AFR. 77 {ML/MIN/1.7} See_Comment N [Automated message] GUINEAN (test The system ich code = eGFR generated this result NON-AFR. transmitted ref erence GUINEAN) range: > OR = 6 0. The reference range was not used to int erpret this result as normal/abnormal . eGFR 89 {ML/MIN/1.7} See_Comment N [Automated message] GUINEAN (test The system ich code = eGFR generated this result ) transmitte d reference range: > OR = 6 0. The reference range was not used to int erpret this result as normal/abnormal . BUN/CREATININE NOT APPLICABLE 6-22 RATIO (test code = BUN/CREATININE RATIO) SODIUM (test code 141 mmol/L 135-146 N = SODIUM) POTASSIUM (test 4.5 mmol/L 3.5-5.3 N code = POTASSIUM) CHLORIDE (test 105 mmol/L 98-110 N code = CHLORIDE) CARBON DIOXIDE 28 mmol/L 20-32 N (test code = CARBON DIOXIDE) CALCIUM (test 10.0 mg/dl 8.6-10.4 N code = CALCIUM) PROTEIN, TOTAL 7.4 g/dl 6.1-8.1 N (test code = PROTEIN, TOTAL) ALBUMIN (test 4.3 g/dl 3.6-5.1 N code = ALBUMIN) GLOBULIN (test 3.1 {G/DL CALC} 1.9-3.7 N code = GLOBULIN) ALBUMIN/GLOBULIN 1.4 {CALC} 1.0-2.5 N RATIO (test code = ALBUMIN/GLOBULIN RATIO) BILIRUBIN, TOTAL; 0.5 mg/dl 0.2-1.2 N Normal (test code = 02647-1) ALKALINE 72 u/l 37-153 N PHOSPHATASE (test code = ALKALINE PHOSPHATASE) AST; Normal (test 30 u/l 10-35 N code = 1916-6) ALT; Above High 33 u/l 6-29 Threshold (test code = 1742-6) [facility][QL] IRON AND TOTAL IRON BINDING CAPACITY 2020-05-25 14:17:00 Test Item Value Reference Range Interpretation Comments IRON, TOTAL (test code = 86 {mcg/dl} 45-160 N IRON, TOTAL) IRON BINDING CAPACITY (test 354 {mcg/dL ca} 250-450 N code = IRON BINDING CAPACITY) % SATURATION (test code = % 24 {% CALC} 16-45 N SATURATION) [facility][QL] CBC (INCLUDES DIFF/PLT)2020-05-25 14:17:00 Test Item Value Reference Range Interpretation Comments WHITE BLOOD CELL COUNT 3.8 {Thousand/u} 3.8-10.8 N (test code = WHITE BLOOD CELL COUNT) RED BLOOD CELL COUNT (test 3.74 {Million/uL} 3.80-5.10 code = RED BLOOD CELL COUNT) HEMOGLOBIN; Below Low 11.6 g/dl 11.7-15.5 Threshold (test code = 02296-5) HEMATOCRIT; Normal (test 35.7 % 35.0-45.0 N code = 4544-3) MCV; Normal (test code = 95.5 fL 80.0-100.0 N 787-2) MCHC; Normal (test code = 32.5 g/dl 32.0-36.0 N 28467-5) RDW; Normal (test code = 13.2 % 11.0-15.0 N 788-0) PLATELET COUNT; Normal 251 {Thousand/u} 140-400 N (test code = 777-3) MPV; Normal (test code = 11.4 fL 7.5-12.5 N 44928-0) ABSOLUTE NEUTROPHILS (test 1474 {cells/uL} 9383-0401 code = ABSOLUTE NEUTROPHILS) ABSOLUTE LYMPHOCYTES (test 1976 {cells/uL} 850-3900 N code = ABSOLUTE LYMPHOCYTES) ABSOLUTE MONOCYTES (test 312 {cells/uL} 200-950 N code = ABSOLUTE MONOCYTES) ABSOLUTE EOSINOPHILS (test 19 {cells/uL} 15-500 N code = ABSOLUTE EOSINOPHILS) ABSOLUTE BASOPHILS (test 19 {cells/uL} 0-200 N code = ABSOLUTE BASOPHILS) NEUTROPHILS (test code = 38.8 % N NEUTROPHILS) LYMPHOCYTES (test code = 52.0 % N LYMPHOCYTES) MONOCYTES; Normal (test 8.2 % N code = 99861-8) EOSINOPHILS; Normal (test 0.5 % N code = 82680-8) BASOPHILS; Normal (test 0.5 % N code = 63960-5) [facility][QL] PTH, INTACT (WITHOUT CALCIUM)2020-05-25 14:17:00 Test Item Value Reference Range Interpretation Comments PARATHYROID 46 pg/ml 14-64 N Interpretive Gu yaz Intact HORMONE, INTACT PTH (test code = Calcium-------- PARATHYROID HORMONE, INTACT) -------Norm al Parathyroid Normal NormalHypoparat hyroidism Low or Low Norm al LowHyperparathy roidism Primary Normal or High High Secondary High Normal or Low Tertiary High HighNon-Parathy roid Hypercalcemia Low or Low Normal High [facility][QL] VITAMIN E (TOCOPHEROL)2020-05-25 14:17:00 Test Item Value Reference Range Interpretation Comments ALPHA-TOCOPHEROL 16.8 mg/L Reference R dacia (test code = 5.7-19.9 mg/L ALPHA-TOCOPHEROL) Levels of alpha-tocopherol <5 mg/L are consistent with Vitamin E deficiency in adults.Vitamin supplementation within 24 hours prior to blood draw may affect the accuracy of results. T his test was developed and i ts analytical perf ormance characteristics have been determined by [employer]. It has not been cleared or approved by theFDA. This as say has been validated pursu ant to the CLIA regulation s and is used for clinic al purposes. [id number] <1.0 <4.4 This test was developed and PRANEETH (test code = its analyt ical performance [id number] characteri stics have been PRANEETH) determined by [facility]. It has not been cleared or approved by theFDA. This as say has been validated pursu ant to the CLIA regulation s and is used for clinic al purposes. Reference Range 5.7-19.9 mg/L Levels of alpha-tocopherol <5 mg/L are consistent with Vitamin E deficiency in adults.Vitamin supplementation within 24 hours prior to blood draw may affect the accuracy of results. This test was developed and its analytical performance characteristics have been determined by [employer]. It has not been cleared or approved by theFDA. This assay has been validated pursuant to the CLIA regulations and is used for clinical purposes.[facility][QL] FOLATE, [id number] 14:17:00 Test Item Value Reference Range Interpretation Comments FOLATE, SERUM (test >24.0 N Referenc e Range code = FOLATE, SERUM) Low: <3.4 Borderli ne: 3.4-5.4 Normal: >5.4 [facility][QL] VITAMIN [id number] 14:17:00 Test Item Value Reference Range Interpretation Comments VITAMIN B12 (test code = VITAMIN 1424 pg/ml 200-1100 B12) [facility][QL] TSH, 3RD GENERATION W/REFLEX TO [id number] 14:17:00 Test Item Value Reference Range Interpretation Comments TSH, 3RD GENERATION 0.56 {MIU/L} N Referenc e Range W/REFLEX TO FT4 (test > or code = TSH, 3RD = 20 Years GENERATION W/REFLEX 0.40-4.5 0 TO FT4) Range s First trim manuel 0.26-2.66 Second trimest er 0.55-2.73 Third trimester 0.43-2.91 [facility][QL] VITAMIN B1, WHOLE [id number] 14:17:00 Test Item Value Reference Range Interpretation Comments VITAMIN B1, WHOLE 127 nmol/L 78-185 Vitamin isaac pplementation BLOOD (test code = within 24 hours prior VITAMIN B1, WHOLE toblood dr [place] may affect BLOOD) the accuracy of results. This test was developed and its analyti syeda performance characteristics have been determined by [employer]. It has not been cleared or approved by theFDA. This assay has been validated pursuant to the CLIA reg ulations and is used for clinical purposes. [facility][QL] HEMOGLOBIN [id number] 14:17:00 Test Item Value Reference Range Interpretation Comments HEMOGLOBIN A1c; 5.0 {% of <5.7 N For the purp ose of Normal (test code total} screening for the = 4548-4) presence ofdiab etes: <5.7% Con sistent with the absenc e of diabetes5.7-6.4 % Consistent with increased risk for diabetes (prediabetes)> or =6.5% Consistent wit h diabetes This a ssay result is consi stent with a decrease d riskof diabetes. Curre ntly, no consensus exist s regarding use ofhemoglobin A1 c for diagnosis of di abetes in children. Ac cording to [place] [employer] (ADA)guidelines , hemoglobin A1c <7.0% represents optimalcontrol in non- di abetic patients. Differentmetric s may apply to specif ic patient populat ions. Standards of Me dical Care in Diabete s(ADA). [facility][QL] VITAMIN A (RETINOL)2020-05-25 14:17:00 Test Item Value Reference Range Interpretation Comments VITAMIN A (test 71 {mcg/dl} 38-98 Clin Chem Vol. 34.No.8. code = VITAMIN A) [id number] 8. 1998Vitamin supplementation within 24 hours prior to blood draw may affect the accuracy of results. T his test was developed a nd its analytical perf ormance characteristics have been determined by [employer]. It has not been cleared or approved by theFDA. This assay has been validated pursuant to the CLIA reg ulations and is used for clinical purposes. REPORT COMMENT:FASTING:[facility]Un[facility][Q] QUESTASSURED 25- OH VIT D, (D2,D3), LC/MS/[id number] 14:17:00 Test Item Value Reference Range Interpretation Comments VITAMIN D, <4.0 ng/ml 30-100 (Note)Reference range: Not 25-OH, D2 established Thi s test was (test code = developed and i ts analytical VITAMIN D, performancechar acteristics have 25-OH, D2) been determined by [employer]. It has not been cleared or approved by the [place] Food and Drug Administra tion. Thisassay has been valida radha pursuant to the CLIA regula tion and is usedfor Clinica l purposes.[facility] [id number] [id number] 00MicAubrey Mor[address] 1 Note 1 For additional info rmation, please refer to [email or web address] [email or web address] [employer] [email or web address]).com/faq/FAQ1 99 (This link is being provided for informational/e ducational purposes only.) VITAMIN D, 65 ng/ml Reference range : Not 25-OH, D3 established (test code = VITAMIN D, 25-OH, D3) Reference range: Not establishedREPORT COMMENT:FASTING:UNKNOWNUnMountain West Medical Center
[2020-08-24 13:08] VITALS: BMI 30.8
--- NOTE | 2020-08-24 15:57 | P.CNS ---
Date of Consult: 08/24/20 Reason for Consult: Medical Management Requesting Physician: Varinder Khoury Primary Care Provider: Kori Lopez NP([facility]) Chief Complaint: Right knee replacement History of Present Illness: 50-year-old female with history of hypertension, hypothyroidism, rheumatoid arthritis. I was asked to evaluate patient to address her medical management post operatively as the patient had right total knee replacement. Patient had seen Orthopedics for continued right knee pain. Patient failed conservative therapy. Patient also with underlying rheumatoid arthritis. Surgical intervention was recommended. Patient doing well post operatively. No complaints of fever, chills, chest pain or shortness of breath. Patient receiving medication for pain. Allergies NSAIDS (Non-Steroidal Anti-Inflamma Allergy (Verified 08/24/20 06:52) Kidney failure Home medications list reviewed: Yes Home Medications: Abatacept [Orencia Clickject] 125 mg SQ EVERY 7TH DAY 08/19/20 Amlodipine [Norvasc] 5 mg PO DAILY 08/19/20 Codeine/APAP [Tylenol W/Codeine #3 tab] 1 tab PO Q6HP PRN 08/19/20 Cyanocobalamin [Vitamin B-12] 1,000 mcg PO DAILY 08/19/20 Ergocalciferol (Vitamin D2) [Vitamin D 50,000 Unit Cap] 1 cap PO EVERY 7TH DAY 08/19/20 Folic Acid 3 mg PO DAILY 08/19/20 Leflunomide 20 mg PO DAILY 08/19/20 Levothyroxine [Synthroid] 100 mcg PO [id number] 08/19/20 Methotrexate [Methotrexate*] 2.5 mg PO DAILY 08/19/20 Simvastatin 10 mg PO DAILY 08/19/20 Vitamin A [Vitamin A*] 10,000 iu PO DAILY 08/19/20 - Past Medical/Surgical History Diabetic: No -: History of right popliteal DVT -: Rheumatoid arthritis -: Hypertension -: Hyperlipidemia -: Osteoarthritis -: Obesity, BMI 30.8 -: History of gastric sleeve -: Gastric sleeve -: Left shoulder surgery x2 -: Left ankle surgery x2 -: Hysterectomy -: Cholecystectomy -: Hernia repair Psychosocial/ Personal History: Patient lives at home. - Family History Father Medical History: Hypertension, Cancer, Kidney disease, Other (see notes) Notes: rheumatoid arthritis, agent orange exposure Mother Medical History: Diabetes, Cancer Notes: breast and lung cancer Sister Medical History: Diabetes, Cancer Notes: breast and lung cancer Brother Medical History: Diabetes, Kidney disease - Social History Smoking Status: Never smoker Alcohol use: No CD- Drugs: No Caffeine use: Yes Place of Residence: Home Review of Systems General: As per HPI Eyes: Unremarkable ENT: Unremarkable Respiratory: Unremarkable Cardiovascular: Unremarkable Gastrointestinal: Unremarkable Genitourinary: Unremarkable Musculoskeletal: Leg Pain, As per HPI Integumentary: Unremarkable Neurological: Unremarkable Lymphatics: Unremarkable Physical Examination Temp Pulse Resp BP Pulse Ox 98.7 F 63 16 125/65 98 08/24/20 12:56 08/24/20 12:56 08/24/20 12:56 08/24/20 12:56 08/24/20 12:56 General: Alert, In no apparent distress, Oriented x3, Cooperative HEENT: Atraumatic Neck: Supple Respiratory: Clear to auscultation bilaterally, Normal air movement Cardiovascular: Normal pulses, Regular rate/rhythm Gastrointestinal: Normal bowel sounds, No tenderness, No masses, No rebound, No guarding Musculoskeletal: Other (Postoperative changes noted to the right knee.) Integumentary: Other (Postoperative changes noted) Neurological: Normal speech, Normal strength at 5/5 x4 extr, Normal tone, Normal affect Laboratory Data (last 24 hrs) 08/24/20 11:44: Hgb 11.2 L, Hct 34.5 L Conclusions/Impression: Impression: Chronic right knee pain/arthritis, failed outpatient therapy status post right total knee arthroplasty Hypertension Hyperlipidemia Rheumatoid arthritis History of popliteal DVT History of gastric sleeve Obesity, BMI 30.8 Plan: Chronic right knee pain/arthritis, failed outpatient therapy status post right total knee arthroplasty: Patient doing well post operatively. Will continue with pain control. Medication for mild, moderate and severe pain provided. DVT prophylaxis in place-Lovenox. Will discuss with orthopedics tomorrow on adjusting dose or switching to oral medication-Xarelto 10 mg daily for a minimum of 14 days. Physical therapy to be initiated tomorrow. Will continue to monitor the patient closely. Patient desires to go home at discharge with home health and physical therapy. After speaking to orthopedics, orthopedic suspect likely home in the next 1-3 days. Hypertension: Continue with home medication-Norvasc. Hyperlipidemia: Continue home medication Lipitor. Rheumatoid arthritis: Continue with home medication of methotrexate, folic acid, leflunomide. History of popliteal DVT: Continue with DVT prophylaxis. Will likely go home on Xarelto for at least 14 days. History of gastric sleeve: Will monitor closely. Obesity, BMI 30.8: Will address lifestyle modification education. Time Spent Managing Pts care (In Minutes): 55
[2020-08-24] MEDS ORDERED: CEFAZOLIN 2 GM in NA CHLORIDE 0.9% 100 ML IVPB SCH (17:00)
[2020-08-24] MEDS: CEFAZOLIN/SWI 2gm 2 GM/20 ML SYR IV SCH (17:21)
[2020-08-24] MEDS: HYDROCODONE/APAP 7.5/325 MG TAB PO PRN (17:27)
[2020-08-24] MEDS: ATORVASTATIN 10 MG TAB PO SCH (20:46)
--- NOTE | 2020-08-24 21:32 | P.OP ---
Preoperative diagnosis: severe right knee osteoarthritis Postoperative diagnosis: same Primary procedure: right total knee arthroplasty Anesthesia: general LMA Estimated blood loss: 30 cc Specimen: right knee bone remnants Findings: see dictation Operative Technique: Indication For Procedure: Mahsa is a 50 year-old female presenting to my clinic with signs, symptoms and x-ray findings consistent with severe right knee osteoarthritis. I discussed with the patient at length risks and benefits associated with operative and nonoperative treatment. She had failed con servative treatment measures and had significant difficulties with ADLs secondary to her pain. We discussed operative treatment and elected to proceed with right total knee arthroplasty. She expressed understanding and elected to proceed with operative treatment. Description Of Procedure: After informed consent was obtained, the patient was identified in the preoperative holding area. The right lower extremity was marked. The patient was then taken to the PACU where she underwent a right lower extremity adductor canal block performed by Anesthesia. She was then taken to the operating room, transferred to the operating table in supine fashion, and placed under general anesthesia. Her right lower extremity was then prepped and draped in usual sterile fashion. A time-out was initiated. The correct patient and procedure were confirmed and identified. The patient did receive her preoperative prophylactic antibiotics. The right lower extremity was then exsanguinated and tourniquet was inflated to 300 mmHg. The patient had severe ROM limitations noted at the beginning of the case with ROM 5-90 degrees. She also had collapse of her medial tibial plateau. Approximately 15 cm longitudinal incision was made centered over the anterior aspect of the right knee. Dissection was then taken to the extensor mechanism and a medial parapatellar arthrotomy was performed. The patella was everted and dislocated laterally and the knee was flexed in the fat pad. Medial lateral meniscus and ACL were all excised exposing the distal femur. Excess hypertrophic synovium was also excised within the suprapatellar pouch. The patient had an MRI of her right knee preoperatively for surgical planning and creation of cutting blocks. The cutting block was then placed over the distal femur and pins were then placed. The distal femoral cutting block was then placed over the pins. Knee joint was then used to ensure proper depth cut and the distal femur was then cut. The chamfer cutting guide was then placed over the distal end of the femur. Anterior, posterior cuts as well as anterior and posterior chamfer cuts were then made again confirming proper depth of the cut using an Otis wing. A curved osteotome was then used to carefully remove the posterior osteophytes off the posterior aspect of the condyles. Excess bone remnants were then sent to pathology for further evaluation. Next, attention was taken to the proximal tibia. A tibial jig and tibial cutting block was then placed on proximal aspect of the right tibia and locked into position. Pins were then placed and alignment guide was then used to confirm proper alignment of the cut and then coronal and sagittal planes. Once this was confirmed, the cutting jig was placed over the pins and the proximal tibia was cut. Sizing trays were then selected and size 10 mm spacer was used and there was good overall balance in flexion and extension. Next, the trial implants were then placed using the size 8 standard CR femur and a size F tibia with an 10 mm MC poly. There was overall good range of motion and good stability trial implants were then removed. The wound was then irrigated thoroughly with normal saline and the knee was then injected with 30 cc of 0.5% Marcaine both in the posterior capsule and mediallateral gutters as well as quadriceps tendon and periosteum. The tibia was then punched. The femur was drilled. The cement was then prepared on the back table. Cement was then placed first on the tibial surface followed by size F tibia with a stem secondary to her prior medial tibial roberto apse. Excess cement was removed with [place] elevators. Size 8 standard CR femur was then placed on the distal femur after cement was placed on the distal femur. Excess cement was then removed and a size 10 mm trial MC poly was then placed. The knee was held in extension as the cement hardened. Undersurface of the patella was prepared debriding osteophytes using rongeurs as well as osteophytes had been debrided off the proximal tibia with rongeurs and osteotomes to aid with the medial tightness. Cement was placed on the undersurface of the patella after it was cut and a size 32 patella was placed. Once the cement was hardened, the knee was ranged, there was good overall stability both in flexion, extension and as well as stability with varus and valgus stresses. Trial poly was then removed and a size 10 mm MC poly was then placed and locked into position. The knee was then ranged again. There was good overall range of motion both for flexion and extension with good stability. The wound was then irrigated again thoroughly with normal saline using pulse lavage. Tourniquet was let down. Hemostasis was achieved using Bovie electrocautery. Extensor mechanism was then approximated using a #1 Vicryl bothin interrupted and running fashion. The fascia was then approximated using 0 Vicryl. Subcutaneous tissue was approximated with a 2-0 Vicryl. Skin was approximated using henry. Sterile dressings were applied. The patient was awakened and transferred back in stable condition Complications: None Drain(s): Urinary catheter Implants: [employer]omet Baylee Persona, 8 STD CR femur, F tibia stem, 10 MC poly, 32 patella Fluids & blood products: per anesthesia record; TT: 118 mins @ 300 mmHg Transferred to: Recovery Room Condition: Good
[2020-08-24] MEDS: MORPHINE 2 MG/ML SYR IV PRN (22:30)
[2020-08-25] MEDS: HYDROCODONE/APAP 7.5/325 MG TAB PO PRN ×5 (01:19→20:13)
[2020-08-25] MEDS: CEFAZOLIN/SWI 2gm 2 GM/20 ML SYR IV SCH ×2 (01:20→09:26)
[2020-08-25] MEDS: ACETAMINOPHEN 325 MG TABLET PO PRN (02:54)
[2020-08-25 04:17] LABS: Hematocrit 28.5 % (36.0-45.0)
[2020-08-25] MEDS ORDERED: ENOXAPARIN 30 MG/0.3 ML SQ SCH (06:00)
[2020-08-25] MEDS: LEVOTHYROXINE SOD 0.1 MG TAB PO SCH (06:38)
--- NOTE | 2020-08-25 07:08 | P.PN ---
Subjective Date of Service: 08/25/20 Primary Care Provider: Kori Lopez NP([facility]) Chief Complaint: Right knee replacement Physical Examination - Vital Signs Temperature: 100.6 F Blood Pressure: 138/79 Pulse: 75 Respirations: 18 Pulse Ox (%): 96 - Studies Laboratory Data (last 24 hrs) 08/25/20 03:48: Hgb 9.6 L, Hct 28.5 L D 08/24/20 11:44: Hgb 11.2 L, Hct 34.5 L Assessment & Plan Physician Review Additional Text: Fever last night. Will check CXR, Obtain Urine and blood cultures. Encourage Incentive spirometer. Will discuss with Orthopedics.
[2020-08-25 08:01] LABS: Potassium 4.3 mmol/L (3.5-5.1)
[2020-08-25] MEDS ORDERED: HOME MED 1 EA UNK (Simvastatin [Simvastatin] 10 MG Tablet) PO SCH (09:00)
[2020-08-25] MEDS ORDERED: HOME MED 1 EA UNK (Leflunomide [Leflunomide] 20 MG Tablet) PO SCH (09:00)
[2020-08-25] MEDS: METHOTREXATE 2.5 MG TAB PO SCH (09:00)
[2020-08-25] MEDS: FOLIC ACID 1 MG TABLET PO SCH (09:27)
[2020-08-25] MEDS: VITAMIN A 10,000 IU CAP PO SCH (09:29)
[2020-08-25] MEDS: AMLODIPINE 5 MG TAB PO SCH (09:29)
[2020-08-25] MEDS: CYANOCOBALAMIN 1,000 MCG TAB PO SCH (09:29)
[2020-08-25] MEDS: APIXABAN 2.5 MG TABLET PO SCH ×2 (10:26→20:13)
--- NOTE | 2020-08-25 10:33 | RAD REPORT ---
EXAM DESCRIPTION: RAD - Chest Single View - 08/25/2020 10:06 am CLINICAL HISTORY: fever post right knee arthroplasty Chest pain. COMPARISON: Chest Pa And Lat (2 Views) dated 07/18/2020; Chest Single View dated 07/14/2015 FINDINGS: Portable technique limits examination quality. The lungs are grossly clear. The heart is normal in size. No displaced fractures. IMPRESSION: No acute intrathoracic process suspected.
[2020-08-25] MEDS: MORPHINE 2 MG/ML SYR IV PRN (11:20)
--- NOTE | 2020-08-25 13:18 | P.PN ---
Subjective Date of Service: 08/25/20 Primary Care Provider: Kori Lopez NP([facility]) Chief Complaint: Right knee replacement Subjective: Improving, Other (Pain better controlled. T-max 100.6. No shortness of breath, no dysuria.) Physical Examination - Vital Signs Temperature: 99.6 F Blood Pressure: 161/68 Pulse: 75 Respirations: 16 Pulse Ox (%): 97 - Studies Laboratory Data (last 24 hrs) 08/25/20 07:22: Sodium 143, Potassium 4.3, BUN 16, Creatinine 1.00, Glucose 123 H 08/25/20 03:48: Hgb 9.6 L, Hct 28.5 L D Assessment & Plan Discharge Plan: Home Plan to discharge in: 48 Hours Physician Review Additional Text: Physical Exam: GENERAL: The patient is a well-developed, well-nourished, in no apparent distress. Alert and oriented x3. VITAL SIGNS: Reviewed HEENT: Neck supple LUNGS: Clear to auscultation. No crackles or wheezes are heard. HEART: Regular rate and rhythm, no appreciable gallops, rubs, murmurs or extra heart sounds ABDOMEN: Soft, nontender, and nondistended. Positive bowel sounds. No hepatosplenomegaly was noted. EXTREMITIES: Postop changes noted to the right lower extremity NEUROLOGIC: The patient is oriented to person, place and time. Strength and sensation are grossly intact. Face is symmetric. SKIN: Normal color, turgor and temperature. No ulcerations or rashes noted. Impression: Chronic right knee pain/arthritis, failed outpatient therapy status post right total knee arthroplasty Hypertension Hyperlipidemia Rheumatoid arthritis History of popliteal DVT History of gastric sleeve Obesity, BMI 30.8 Plan: Chronic right knee pain/arthritis, failed outpatient therapy status post right total knee arthroplasty: Patient doing better postoperatively. Pain better controlled. Medication for mild, moderate and severe pain provided. Patient had mild fever. Will obtain urine, blood cultures. Will also check chest x- ray. Encourage incentive spirometer. Physical therapy to be started. Will transition to Eliquis for DVT prophylaxis. Case discussed at length with orthopedics. Orthopedics agrees with plan of care. Orthopedics anticipates discharge likely in the next 48 hours with home health and physical therapy. Social work consulted to help with discharge plan of care. Hypertension: Continue with home medication-Norvasc. Hyperlipidemia: Continue home medication Lipitor. Rheumatoid arthritis: Continue with home medication of methotrexate, folic acid, leflunomide. History of popliteal DVT: We will start Eliquis. History of gastric sleeve: Will monitor closely. Obesity, BMI 30.8: Will address lifestyle modification education. Code Status: Full Code DVT prophylaxis: Eliquis Advanced Care Planning-30 minutes: Plan of care for the patient's discharge was discussed in detail with the patient. Anticipate discharge with home health and physical therapy in the next 48 hours. Time Spent Managing Pts Care (In Minutes): 55
--- NOTE | 2020-08-25 13:18 | P.PN ---
Subjective Date of Service: 08/25/20 Primary Care Provider: Kori Lopez NP([facility]) Chief Complaint: Right knee replacement some breakthrough pain overnight; patient with overnight fever; improving this AM Physical Examination - Vital Signs Temperature: 99.6 F Blood Pressure: 161/68 Pulse: 75 Respirations: 16 Pulse Ox (%): 97 - Physical Exam General: Alert, In no apparent distress Musculoskeletal: Other (RLE: dressing c/d/i; +EHL/FHL/GSC/TA; sensation grossly intact distally) - Studies Laboratory Data (last 24 hrs) 08/25/20 07:22: Sodium 143, Potassium 4.3, BUN 16, Creatinine 1.00, Glucose 123 H 08/25/20 03:48: Hgb 9.6 L, Hct 28.5 L D Assessment And Plan - Plan Mahsa is a 50-year-old female status post right total knee arthroplasty postoperative day #1 -Physical therapy will be consulted; patient will be weightbearing as tolerated on the right lower extremity -Fever likely secondary to atelectasis and anesthesia; continue with incentive spirometer and getting out of bed with physical therapy -Lovenox for DVT prophylaxis -Plan on discharge in the next 24 to 48 hours
[2020-08-25] MEDS: ATORVASTATIN 10 MG TAB PO SCH (20:13)
[2020-08-26 00:04] VITALS: O2SAT 98
[2020-08-26] MEDS: ACETAMINOPHEN 325 MG TABLET PO PRN (00:21)
[2020-08-26] MEDS: LEVOTHYROXINE SOD 0.1 MG TAB PO SCH (05:31)
[2020-08-26 05:34] LABS: Absolute Lymphocytes (CBC) 1.5 K/uL (0.7-4.9); Basophils % 0.4 % (0-1.3); Hematocrit 29.3 % (36.0-45.0); Lymphocytes % 20.9 % (15.3-44.8); MPV 8.5 fL (7.6-11.3); RBC Red Blood Cell Count 3.07 M/uL (3.86-4.86)
[2020-08-26 05:41] LABS: BUN Blood Urea Nitrogen 11 mg/dL (7-18); Bicarbonate 28 mmol/L (21-32); Glucose Level 100 mg/dL (74-106); Magnesium 2.3 mg/dL (1.8-2.4); Potassium 4.3 mmol/L (3.5-5.1); Sodium Level 143 mmol/L (136-145)
--- NOTE | 2020-08-26 06:51 | P.PN ---
Subjective Date of Service: 08/26/20 Primary Care Provider: Kori Lopez NP([facility]) Chief Complaint: Right knee replacement Subjective: Improving, Doing well Physical Examination - Vital Signs Temperature: 97.4 F Blood Pressure: 136/74 Pulse: 83 Respirations: 18 Pulse Ox (%): 94 - Studies Laboratory Data (last 24 hrs) 08/26/20 05:13: Sodium 143, Potassium 4.3, BUN 11, Creatinine 0.76, Glucose 100, Magnesium 2.3 08/26/20 05:13: WBC 7.20 D, Hgb 9.5 L, Hct 29.3 L, Plt Count 153 D 08/25/20 07:22: Sodium 143, Potassium 4.3, BUN 16, Creatinine 1.00, Glucose 123 H Microbiology Data (last 24 hrs): 08/25/20 07:32 Blood - Blood Anaerobic Blood Culture - Final Assessment & Plan Discharge Plan: Home Plan to discharge in: 24 Hours Physician Review Additional Text: Physical Exam: Patient has done well with physical therapy. Pain seems to be well controlled. No complaints noted. GENERAL: The patient is a well-developed, well-nourished, in no apparent distress. Alert and oriented x3. VITAL SIGNS: Reviewed HEENT: Neck supple LUNGS: Clear to auscultation. No crackles or wheezes are heard. HEART: Regular rate and rhythm, no appreciable gallops, rubs, murmurs or extra heart sounds ABDOMEN: Soft, nontender, and nondistended. Positive bowel sounds. No hepat osplenomegaly was noted. EXTREMITIES: Postop changes noted to the right lower extremity NEUROLOGIC: The patient is oriented to person, place and time. Strength and sensation are grossly intact. Face is symmetric. SKIN: Normal color, turgor and temperature. No ulcerations or rashes noted. Impression: Chronic right knee pain/arthritis, failed outpatient therapy status post right total knee arthroplasty Hypertension Hyperlipidemia Rheumatoid arthritis History of popliteal DVT History of gastric sleeve Obesity, BMI 30.8 Plan: Chronic right knee pain/arthritis, failed outpatient therapy status post right total knee arthroplasty: Patient has done well postoperatively. Pain better controlled. Chest x-ray unremarkable. So far urine and blood cultures negative. Patient has been transitioned to oral DVT prophylaxis. Case discussed in detail with orthopedics this morning. If the patient does well with physical therapy this afternoon then orthopedics plans for discharge. Patient agreeable to plan of care. Anticipate discharge later today if doing well with physical therapy this afternoon. Patient may continue with her home medications. Arrangements for home health and physical therapy has been arranged. Hypertension: Continue with home medication-Norvasc. Hyperlipidemia: Continue home medication Lipitor. Rheumatoid arthritis: Continue with home medication of methotrexate, folic acid, leflunomide. History of popliteal DVT: Continue Eliquis as an outpatient. History of gastric sleeve: Will monitor closely. Obesity, BMI 30.8: Will address lifestyle modification education. Code Status: Full Code DVT prophylaxis: Eliquis Advanced Care Planning-30 minutes: Plan for discharge later today if doing well with physical therapy. Home health and physical therapy as an outpatient has been arranged. Time Spent Managing Pts Care (In Minutes): 55
[2020-08-26] MEDS: HYDROCODONE/APAP 7.5/325 MG TAB PO PRN ×2 (07:06→12:15)
[2020-08-26] MEDS: FOLIC ACID 1 MG TABLET PO SCH (08:40)
[2020-08-26] MEDS: CYANOCOBALAMIN 1,000 MCG TAB PO SCH (08:41)
[2020-08-26] MEDS: VITAMIN A 10,000 IU CAP PO SCH (08:41)
[2020-08-26] MEDS: AMLODIPINE 5 MG TAB PO SCH (08:41)
[2020-08-26] MEDS: APIXABAN 2.5 MG TABLET PO SCH (08:41)
--- NOTE | 2020-08-26 09:20 | P.DS ---
Admission Date: 08/24/20 Discharge Date: 08/26/20 Primary Care Provider: Kori Lopez NP([facility]) Disposition: DC HOME/HOME HEALTH CARE Discharge Condition: GOOD Reason for Admission: Right knee replacement Consultations: Dr. Keith Barber, hospitalist Procedures: right total knee arthroplasty on 08/24/2020 Brief History of Present Illness: Oswaldo is a 50 yo female admitted to the floor postoperatively after right TKA Hospital Course: Mahsa was admitted postop in stable condition. Dr. Barber was consulted for medical management. She had postoperative fever during her 1st night and had negative chest xray, negative UA and negative blood cultures. Her symptoms and vitals improved the following day remained stable during the remainder of her hospital stay. She was placed on Eliquis for DVT prophylaxis and was discharged on 08/26/2020 after physical therapy in stable condition. She will have HHPT setup for her at discharge. Vital Signs/Physical Exam: Temp Pulse Resp BP Pulse Ox 97.4 F 83 18 136/74 94 08/26/20 08:43 08/26/20 08:43 08/26/20 08:43 08/26/20 08:43 08/26/20 08:43 Laboratory Data at Discharge: WBC 7.20 K/uL (4.3-10.9) D 08/26/20 05:13 Hgb 9.5 g/dL (12.0-15.0) L 08/26/20 05:13 Hct 29.3 % (36.0-45.0) L 08/26/20 05:13 Plt Count 153 K/uL (152-406) D 08/26/20 05:13 PT 11.6 SECONDS (9.2-12.8) 08/19/20 08:41 INR 0.97 08/19/20 08:41 APTT 29.1 SECONDS (21.7-34.4) 08/19/20 08:41 Sodium 143 mmol/L (136-145) 08/26/20 05:13 Potassium 4.3 mmol/L (3.5-5.1) 08/26/20 05:13 BUN 11 mg/dL (7-18) 08/26/20 05:13 Creatinine 0.76 mg/dL (0.55-1.3) 08/26/20 05:13 Glucose 100 mg/dL (74-106) 08/26/20 05:13 Magnesium 2.3 mg/dL (1.8-2.4) 08/26/20 05:13 Home Medications: Abatacept [Orencia Clickject] 125 mg SQ EVERY 7TH DAY 08/19/20 Amlodipine [Norvasc*] 5 mg PO DAILY 08/19/20 Cyanocobalamin [Vitamin B-12*] 1,000 mcg PO DAILY 08/19/20 Ergocalciferol (Vitamin D2) [Vitamin D 50,000 Unit Cap] 1 cap PO EVERY 7TH DAY 08/19/20 Folic Acid 3 mg PO DAILY 08/19/20 Leflunomide 20 mg PO DAILY 08/19/20 Levothyroxine [Synthroid*] 100 mcg PO [id number] 08/19/20 Methotrexate [Methotrexate*] 2.5 mg PO DAILY 08/19/20 Simvastatin 10 mg PO DAILY 08/19/20 Vitamin A [Vitamin A*] 10,000 iu PO DAILY 08/19/20 Apixaban [Eliquis *] 2.5 mg PO BID tablet 08/26/20 Hydrocodone 7.5/APAP 325 [[place] 7.5/325 mg*] 1 tab PO Q4H PRN tab 08/26/20 Methotrexate [Methotrexate*] 2.5 mg PO DAILY tab 08/26/20 Physician Discharge Instructions: keep dressing clean, dry, and intact; continue use of LYDIA hose on both legs for 2 weeks Diet: Regular Activity: Weight bearing as tolerated Followup: Kori Lopez NP [Primary Care Provider] - Varinder Khoury MD [ACTIVE - CAN ADMIT] - 1-2 Weeks
[2020-08-26] MEDS: METHOTREXATE 2.5 MG TAB PO SCH (10:11)
[2020-08-26 13:08] VITALS: BP 132/65; TEMP 99.1
[2020-08-31] MEDS ORDERED: DRISDOL (VITAMIN D=ERGOCALCIFEROL) 50000 UNIT CAP PO SCH (09:00)
== END 2020-08-26 15:05 | disposition home health service (06) | DRG 470 ==
LOC: OR 05:56 → 2ND 11:22
PROVIDERS: ADMIT Orthopaedic Surgery Sports Medicine; ATTEND Orthopaedic Surgery Sports Medicine
PROC: 0SRC0J9 Replacement of Right Knee Joint with Synthetic Substitute, Cemented, Open Approach (ICD-10-PCS; principal; 2020-08-24 07:30)
DX: M17.11 Unilateral primary osteoarthritis, right knee (principal); I10 Essential (primary) hypertension; E78.5 Hyperlipidemia, unspecified; E03.9 Hypothyroidism, unspecified; M06.9 Rheumatoid arthritis, unspecified; R50.82 Postprocedural fever; E66.9 Obesity, unspecified; Z68.30 Body mass index [BMI] 30.0-30.9, adult; Z79.890 Hormone replacement therapy; Z79.899 Other long term (current) drug therapy; Z90.710 Acquired absence of both cervix and uterus; Z79.01 Long term (current) use of anticoagulants; Z86.718 Personal history of other venous thrombosis and embolism; Z98.84 Bariatric surgery status; Z20.822 Contact with and (suspected) exposure to COVID-19
CPT/HCPCS: 36415; 71045; 80048; 83735; 85014; 85018; 85025; 85610; 85730; 87040; 87086; 87088; 88305; 88311; 94010; 97110; 97116; 97139; 97161; 97530; J0690; J1100; J1170; J1650; J2175; J2250; J2270; J2405; J2704; J3010; J7120; J8610; U0002

== ENCOUNTER 2020-12-22 04:14 | Emergency (ER) | payer OTHER ==
[2020-12-22] MEDS ORDERED: MAGNES/ALUMIN/SIMET 30ML UCUP ONE (05:36)
[2020-12-22] MEDS ORDERED: ONDANSETRON 4 MG/2 ML VIAL ONE (05:36)
[2020-12-22] MEDS ORDERED: LIDOCAINE VISCOUS 2% SOLN 15 ML UDC ONE (05:37)
[2020-12-22] MEDS ORDERED: NA CHLORIDE 0.9% 1,000 ML ONE (05:37)
[2020-12-22 05:43] LABS: Absolute Lymphocytes (CBC) 0.7 K/uL (0.7-4.9); Basophils % 0.4 % (0-1.3); Hematocrit 37.2 % (36.0-45.0); MPV 8.5 fL (7.6-11.3); RBC Red Blood Cell Count 4.04 M/uL (3.86-4.86)
[2020-12-22] MEDS ORDERED: FAMOTIDINE 20 MG/2 ML VIAL IV ONE (05:51)
[2020-12-22 05:53] LABS: ALT/SGPT 26 U/L (12-78); AST/SGOT 19 U/L (15-37); Albumin 3.7 g/dL (3.4-5.0); Alkaline Phosphatase 74 U/L (45-117); BUN Blood Urea Nitrogen 13 mg/dL (7-18); Bicarbonate 26 mmol/L (21-32); Bilirubin Direct < 0.1 mg/dL (0-0.2); Bilirubin Total 0.3 mg/dL (0.2-1.0); Glucose Level 152 mg/dL (74-106); Lipase 129 U/L (73-393); Potassium 4.1 mmol/L (3.5-5.1); Protein, Total 8.2 g/dL (6.4-8.2); Sodium Level 140 mmol/L (136-145)
[2020-12-22] MEDS ORDERED: NA CHLORIDE 0.9% 50 ML ONE (06:32)
[2020-12-22] MEDS ORDERED: PROMETHAZINE INJ 25 MG/ML AMP ONE (06:32)
[2020-12-22 06:42] LABS: Urine Blood Negative (Negative); Urine Glucose Negative (Negative); Urine Protein Negative (Negative); Urine Specific Gravity 1.025 (1.005-1.030)
--- NOTE | 2020-12-22 07:24 | EDPHYS ---
Physician Documentation [facility] Name: Mahsa Joseph Age: 50 yrs Sex: Female : 1970 Arrival Date: 12/22/2020 Time: 04:18 Bed 9 Private MD: ED Physician Alonso Raya HPI: 12/22 05:03 This 50 yrs old Black Female presents to ER via Ambulatory with complaints of Vomiting, ma2 Sinus Pain, Sinus Congestion. 05:03 The patient presents to the emergency department with nausea, vomiting, abdominal pain. ma2 Onset: The symptoms/episode began/occurred gradually, 1 day(s) ago. Associated signs and symptoms: Pertinent negatives: constipation, dysuria, GI bleeding. Severity of symptoms: At their worst the symptoms were moderate in the emergency department the symptoms are unchanged. The patient has not experienced similar symptoms in the past. Patient has been having pain, mild fever, she saw her PCP was given Z-Percy. After Z-Percy she started to have epigastric pain, vomiting. Abdominal pain has resolved.. 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 - Social history:: Smoking status: Patient denies any tobacco usage or history of. Patient/guardian denies using alcohol, street drugs, The patient lives with family. - Family history:: not pertinent. ROS: 05:03 Constitutional: Negative for fever, chills, and weight loss. ma2 05:03 All other systems are negative. Exam: 05:03 Constitutional: This is a well developed, well nourished patient who is awake, alert, ma2 and in no acute distress. Head/Face: Normocephalic, atraumatic. Eyes: Pupils equal round and reactive to light, extra-ocular motions intact. Lids and lashes normal. Conjunctiva and sclera are non-icteric and not injected. Cornea within normal limits. Periorbital areas with no swelling, redness, or edema. ENT: Nares patent. No nasal discharge, no septal abnormalities noted. Tympanic membranes are normal and external auditory canals are clear. Oropharynx with no redness, swelling, or masses, exudates, or evidence of obstruction, uvula midline. Mucous membranes moist. Neck: Trachea midline, no thyromegaly or masses palpated, and no cervical lymphadenopathy. Supple, full range of motion without nuchal rigidity, or vertebral point tenderness. No Meningismus. Chest/axilla: Normal chest wall appearance and motion. Nontender with no deformity. No lesions are appreciated. Cardiovascular: Regular rate and rhythm with a normal S1 and S2. No gallops, murmurs, or rubs. Normal PMI, no JVD. No pulse deficits. Respiratory: Lungs have equal breath sounds bilaterally, clear to auscultation and percussion. No rales, rhonchi or wheezes noted. No increased work of breathing, no retractions or nasal flaring. Abdomen/GI: Soft, non-tender, with normal bowel sounds. No distension or tympany. No guarding or rebound. No evidence of tenderness throughout. Back: No spinal tenderness. No costovertebral tenderness. Full range of motion. Skin: Warm, dry with normal turgor. Normal color with no rashes, no lesions, and no evidence of cellulitis. MS/ Extremity: Pulses equal, no cyanosis. Neurovascular intact. Full, normal range of motion. Neuro: Awake and alert, GCS 15, oriented to person, place, time, and situation. Cranial nerves II-XII grossly intact. Motor strength 5/5 in all extremities. Sensory grossly intact. Cerebellar exam normal. Normal gait. Vital Signs: 04:27 BP 162 / 95; Pulse 82; Resp 20; Temp 98.9; Pulse Ox 100% ; Weight 84.37 kg; Height 5 bs2 ft. 8 in. (172.72 cm); Pain 0/10; 05:25 BP 143 / 93; Pulse 67; Resp 19; Pulse Ox 100% on R/A; Pain 0/10; dc2 06:13 BP 142 / 79; Pulse 77; Resp 17; Temp 98.0(O); Pulse Ox 100% ; Pain 0/10; dc2 04:27 Body Mass Index 28.28 (84.37 kg, 172.72 cm) bs2 MDM: 04:47 Patient medically screened. nh2 05:03 Differential diagnosis: Nonspecific abd pain, gastritis, viral gastroenteritis, ma2 gastroenteritis. 07:22 Data reviewed: vital signs, nurses notes. Counseling: I had a detailed discussion with [facility] the patient and/or guardian regarding: the historical points, exam findings, and any diagnostic results supporting the discharge/admit diagnosis, the presence of at least one elevated blood pressure reading (>120/80) during this emergency department visit, the need for outpatient follow up. Response to treatment: the patient's symptoms have markedly improved after treatment. 12/22 04:53 Order name: Basic Metabolic Panel; Complete Time: 06:09 nh2 12/22 04:53 Order name: CBC with Diff; Complete Time: 06:09 nh2 12/22 04:53 Order name: Hepatic Function; Complete Time: 06:09 nh2 12/22 04:53 Order name: Lipase; Complete Time: 06:09 nh2 12/22 05:03 Order name: COVID-19 : Document "Date of Symptom Onset" if Symptomatic. nh2 12/22 04:53 Order name: CT Abd/Pelvis - IV Contrast Only nh2 12/22 06:22 Order name: SARS-COV-2 RT PCR; Complete Time: 07:23 EDMS 12/22 06:41 Order name: Urine Dipstick-Ancillary; Complete Time: 06:51 EDMS 12/22 06:42 Order name: CREATININE WHOLE BLOOD; Complete Time: 06:51 EDMS 12/22 04:53 Order name: IV Saline Lock; Complete Time: 05:24 ma2 12/22 04:53 Order name: Labs collected and sent; Complete Time: 05:24 ma2 12/22 04:53 Order name: Urine Dipstick-Ancillary (obtain specimen); Complete Time: 07:08 nh2 Administered Medications: 05:20 Drug: NS 0.9% 1000 ml Route: IV; Rate: 1 bolus; Site: left wrist; dc2 05:24 Drug: Zofran (Ondansetron) 4 mg Route: IVP; Site: left wrist; dc2 05:25 Drug: Pepcid (famotidine) 20 mg Route: IVP; Site: left wrist; dc2 06:11 Drug: Phenergan (promethazine) 25 mg {Note: 25mg phenergan placed in 50 ml normal dc2 saline .} Route: IVP; Rate: per protocol; Infused Over: 15 mins; Site: left wrist; Disposition Summary: 12/22/20 07:23 Discharge Ordered Location: Home ma2 Condition: Stable ma2 Diagnosis - Abdominal pain, Generalized ma2 Followup: ma2 - With: Private Physician - When: Tomorrow - Reason: If symptoms return, Continuance of care Discharge Instructions: - Discharge Summary Sheet ma2 - Abdominal Pain, Adult ma2 Forms: - Medication Reconciliation Form ma2 - Thank You Letter ma2 - Antibiotic Education ma2 - Prescription Opioid Use ma2 Prescriptions: - Pepcid 20 mg Oral Tablet - take 1 tablet by ORAL route every 12 hours for 10 days; 20 tablet; Refills: 0, ma2 Product Selection Permitted - Zofran 4 mg Oral Tablet - take 1 tablet by ORAL route every 12 hours As needed; 20 tablet; Refills: 0, ma2 Product Selection Permitted - Medrol (Percy) 4 mg Oral Tablets, Dose Pack - take 1 tablet by ORAL route as directed - follow package instructions; 1 ma2 packet; Refills: 0, Product Selection Permitted - Augmentin 875-125 mg Oral Tablet - take 1 tablet by ORAL route every 12 hours for 10 days; 20 tablet; Refills: 0, ma2 Product Selection Permitted Signatures: Dispatcher [employer] EDMS Alonso Raya MD MD ma2 Emili Stewart RN RN bs2 James Gregory co3 Lida Merino RN RN dc2 Corrections: (The following items were deleted from the chart) 06:22 05:04 CORONAVIRUS ordered. EDMS EDMS
--- NOTE | 2020-12-22 07:24 | ER ---
Nurse's Notes [facility] Name: Mahsa Joseph Age: 50 yrs Sex: Female : 1970 Arrival Date: 12/22/2020 Time: 04:18 Bed 9 Private MD: Diagnosis: Abdominal pain, Generalized Presentation: 12/22 04:27 Chief complaint: Patient states: sinus infections started Saturday started Zpack Saturday, bs2 abdomen pain Saturday and N/V started last night. Coronavirus screen: chills, congestion, nausea, runny nose, vomiting. Ebola Screen: No symptoms or risks identified at this time. Initial Sepsis Screen: Does the patient meet any 2 criteria? No. Patient's initial sepsis screen is negative. Does the patient have a suspected source of infection? No. Patient's initial sepsis screen is negative. Risk Assessment: Do you want to hurt yourself or someone else? Patient reports no desire to harm self or others. Onset of symptoms was December 18, 2020. 04:27 Method Of Arrival: Ambulatory bs2 04:27 Acuity: MILAGROS 3 bs2 Triage Assessment: 04:29 General: Appears in no apparent distress. uncomfortable, Behavior is cooperative, bs2 appropriate for age. Pain: Denies pain. GI: Reports intolerance of fluids, intolerance of food, nausea, vomiting. 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 - Social history:: Smoking status: Patient denies any tobacco usage or history of. Patient/guardian denies using alcohol, street drugs, The patient lives with family. - Family history:: not pertinent. Screenin:10 Abuse screen: Denies threats or abuse. Denies injuries from another. Nutritional dc2 screening: No deficits noted. Tuberculosis screening: No symptoms or risk factors identified. Never had TB. Possible symptoms: None Risk factors: None. 05:10 Fall Risk None identified. No fall in past 12 months (0 pts). Secondary diagnosis (15 dc2 points) No IV (0 pts). Ambulatory Aid- None/Bed Rest/Nurse Assist (0 pts). Gait- Normal/Bed Rest/Wheelchair (0 pts) Mental Status- Oriented to own ability (0 pts). Assessment: 04:40 General: Appears in no apparent distress. uncomfortable, obese, well groomed, Behavior dc2 is calm, cooperative, Reports feeling ill for > 3 days, Denies Pain at present , only nausea. States abdominal pain on and off. Reports vomiting all night. Has brought in a sample and emesis is green liquid. 04:40 Neuro: No deficits noted. Respiratory: No deficits noted. Breath sounds are clear dc2 bilaterally. GI: Abdomen is non-distended, Last BM was December 21, 2020. Bowel sounds present X 4 quads. hyperactive in umbilical area, right upper quadrant, left upper quadrant, right lower quadrant and left lower quadrant. : Reports Denies burning with urination, urinary frequency, urgency. Musculoskeletal: No deficits noted. 05:28 Reassessment: from ct obtain green top for CT. dc2 06:00 Reassessment: Pt states she still feels pretty bad and is attempting to vomit. Provider dc2 made aware and will order phenergan. 06:58 Reassessment: Pt go to bathroom, states she still feels bad. Urine light yellow and dc2 clear with no odor. WIll dip, Pt return to room, VSS. 07:03 Reassessment: Report given to RIVERA Barba. dc2 Vital Signs: 04:27 BP 162 / 95; Pulse 82; Resp 20; Temp 98.9; Pulse Ox 100% ; Weight 84.37 kg; Height 5 bs2 ft. 8 in. (172.72 cm); Pain 0/10; 05:25 BP 143 / 93; Pulse 67; Resp 19; Pulse Ox 100% on R/A; Pain 0/10; dc2 06:13 BP 142 / 79; Pulse 77; Resp 17; Temp 98.0(O); Pulse Ox 100% ; Pain 0/10; dc2 04:27 Body Mass Index 28.28 (84.37 kg, 172.72 cm) bs2 ED Course: 04:18 Patient arrived in ED. bp1 04:29 Triage completed. bs2 04:29 Arm band placed on left wrist. bs2 04:45 Patient has correct armband on for positive identification. Bed in low position. Call dc2 light in reach. Side rails up X 1. 04:45 Missed attempt(s): 20 gauge in right antecubital area. dc2 04:45 No provider procedures requiring assistance completed. dc2 04:46 Agustin Melvin PA is PHCP. jr8 04:47 Alonso Raya MD is Attending Physician. ma2 04:59 Lida Merino RN is Primary Nurse. dc2 05:15 Inserted saline lock: 20 gauge in left wrist, using aseptic technique. Blood collected. dc2 05:24 Basic Metabolic Panel Sent. dc2 05:24 CBC with Diff Sent. dc2 05:24 Lipase Sent. dc2 05:31 psychiatric specialist on. Pulse ox on. NIBP on. Door closed. Lights dimmed. dc2 05:[address] via stretcher. dc2 05:[address] moved back from CT. dc2 05:52 CT Abd/Pelvis - IV Contrast Only In Process Unspecified. EDMS 06:03 COVID-19 : Document "Date of Symptom Onset" if Symptomatic. Sent. dc2 07:36 IV discontinued, intact, bleeding controlled, No redness/swelling at site. Pressure es2 dressing applied. Administered Medications: 05:20 Drug: NS 0.9% 1000 ml Route: IV; Rate: 1 bolus; Site: left wrist; dc2 05:24 Drug: Zofran (Ondansetron) 4 mg Route: IVP; Site: left wrist; dc2 05:25 Drug: Pepcid (famotidine) 20 mg Route: IVP; Site: left wrist; dc2 06:11 Drug: Phenergan (promethazine) 25 mg {Note: 25mg phenergan placed in 50 ml normal dc2 saline .} Route: IVP; Rate: per protocol; Infused Over: 15 mins; Site: left wrist; Outcome: 07:23 Discharge ordered by . ma2 07:36 Discharged to home ambulatory. es2 07:36 Condition: stable 07:36 Discharge instructions given to patient, Instructed on discharge instructions, medication usage, Demonstrated understanding of instructions, medications, Prescriptions given X 4. 07:37 Patient left the ED. es2 Signatures: Dispatcher [employer] EDMS Agustin Melvin PA PA jr8 Alonso Raya MD MD ma2 Amna Montano Bridget, RN RN bs2 Lida Merino RN RN summer2 Phylicia Stewart RN RN es2 Corrections: (The following items were deleted from the chart) 06:22 06:03 CORONAVIRUS drawn and sent. tn2 EDMS
[2020-12-22 07:59] VITALS: O2SAT 100
[2020-12-22 08:02] VITALS: BP 142/79; TEMP 98
--- NOTE | 2020-12-22 10:46 | RAD REPORT ---
EXAM DESCRIPTION: CT ABDOMEN PELVIS WITH IV CONTRAST on 12/22/2020 4:53 AM CDT CLINICAL HISTORY: ABD PAIN COMPARISON: None. TECHNIQUE: CT ABDOMEN PELVIS WITH IV CONTRAST on 12/22/2020 4:53 AM CDT This exam was performed according to our departmental dose-optimization program, which includes autom ated exposure control, adjustment of the mA and/or kV according to patient size and/or use of iterati ve reconstruction technique. FINDINGS: Lower lungs are clear. Abdomen: The liver is normal in appearance. There is no biliary dilatation. Cholecystectomy was perfo rmed. There are postoperative changes of the greater curvature of stomach. The pancreas and spleen ar e normal in appearance. The adrenal glands and kidneys are unremarkable. Abdominal aorta is normal in course and caliber without aneurysm. There is no free air. There is no r etroperitoneal adenopathy. Pelvis: There is no bowel obstruction. Urinary bladder is unremarkable. There is no free fluid. Hyste rectomy was performed. Appendix is normal. Skeleton: There are no acute osseous findings. No suspicious bony lesions. IMPRESSION: No definite acute inflammatory process. Electronically signed by: Don Tomas MD 12/22/2020 6:07 AM CDT Due to temporary technical issues with the PACS/Fluency reporting system, reports are being signed by the in house radiologists without review as a courtesy to insure prompt reporting. The interpreting radiologist is fully responsible for the content of the report.
== END 2020-12-22 07:37 | disposition home or self-care (01) ==
LOC: ER 04:14
DX: R10.84 Generalized abdominal pain (principal); R11.2 Nausea with vomiting, unspecified; I10 Essential (primary) hypertension; E03.9 Hypothyroidism, unspecified; Z88.8 Allergy status to other drugs, medicaments and biological substances; Z20.822 Contact with and (suspected) exposure to COVID-19
CPT/HCPCS: 85025; 80048; 36415; 82565; 80076; 81003; 83690; 74177; 96375; 96374; 99285; U0003; Q9967; J2550; J7030; J2405

== ENCOUNTER 2021-01-05 20:42 | Inpatient (IN) | payer OTHER ==
[2021-01-05] MEDS ORDERED: ONDANSETRON 4 MG/2 ML VIAL ONE ×2 (21:50→23:19)
[2021-01-05] MEDS ORDERED: NA CHLORIDE 0.9% 1,000 ML ONE (21:50)
--- NOTE | 2021-01-05 22:02 | RAD REPORT ---
EXAM DESCRIPTION: CTAbdomen Pelvis W Contrast - 01/05/2021 9:50 pm CLINICAL HISTORY: ABD PAIN COMPARISON: Abdomen Pelvis W Contrast dated 12/22/2020 TECHNIQUE: CT of the abdomen and pelvis was performed. All CT scans are performed using dose optimization technique as appropriate and may include automated exposure control or mA/KV adjustment according to patient size. FINDINGS: Lower chest: No acute abnormality. Liver: No acute abnormality or suspicious lesions. Biliary: Cholecystectomy Stomach: Surgical changes along the stomach. Duodenum: No significant focal abnormality. Pancreas: No significant abnormality. Spleen: No significant abnormality. Adrenal: No suspicious lesions. Kidney/ureter: No hydronephrosis. No renal calculi. Retroperitoneum: No retroperitoneal adenopathy. Vascular: No aneurysm. Bowel: Small bowel obstruction identified. There is significant mesenteric edema. The small bowel carolin sures over 3 cm.. Peritoneum: Free fluid is present. There is swirling of the small bowel mesentery. Two transition poi nts are present. Bladder: Grossly unremarkable. Reproductive: No adnexal masses. Bones: No acute fracture. Other: n/a IMPRESSION: Dilated small bowel with two transition points and swirling of the mesentery concerning for a closed loop small bowel obstruction. Ascites is present. Recommend surgical consultation.
[2021-01-05 22:07] LABS: Absolute Lymphocytes (CBC) 0.8 K/uL (0.7-4.9); Albumin 4.1 g/dL (3.4-5.0); Basophils % 0.2 % (0-1.3); Bilirubin Direct 0.2 mg/dL (0-0.2); Bilirubin Total 0.5 mg/dL (0.2-1.0); Hematocrit 40.6 % (36.0-45.0); MPV 8.2 fL (7.6-11.3); Protein, Total 8.9 g/dL (6.4-8.2); RBC Red Blood Cell Count 4.46 M/uL (3.86-4.86)
--- NOTE | 2021-01-05 22:17 | ER ---
Nurse's Notes [facility] Name: Mahsa Joseph Age: 50 yrs Sex: Female : 1970 Arrival Date: 01/05/2021 Time: 20:45 Bed 24 Private MD: Diagnosis: Small Bowel Obstruction Presentation: 01/05 20:55 Chief complaint: Patient states: RUQ and umbilical pain with vomiting since Saturday. sj1 Loss of appetite. Denies diarrhea. Coronavirus screen: Vaccine status: Patient reports receiving the 2nd dose of the covid vaccine. Ebola Screen: No symptoms or risks identified at this time. Initial Sepsis Screen: Does the patient meet any 2 criteria? No. Patient's initial sepsis screen is negative. Does the patient have a suspected source of infection? No. Patient's initial sepsis screen is negative. Risk Assessment: Do you want to hurt yourself or someone else? Patient reports no desire to harm self or others. Onset of symptoms was January 03, 2021. 20:55 Method Of Arrival: Ambulatory [facility] 20:55 Acuity: MILAGROS 3 sj1 Triage Assessment: 21:15 General: Appears uncomfortable, well groomed. dc2 21:15 Pain: Complains of pain in right upper quadrant pain that is continuous for past dc2 several weeks , co nausea and vomiting, last episode before arriving to the hospital . Neuro: No deficits noted. Respiratory: No deficits noted. Breath sounds are clear bilaterally. GI: Abdomen is round non-distended, : No signs and/or symptoms were reported regarding the genitourinary system. Derm: No deficits noted. No signs and/or symptoms reported regarding the dermatologic system. Musculoskeletal: No deficits noted. Circulation, motion, and sensation intact. [employer]: 01/06 00:13 LMP N/A - Post-menopause dc2 Historical: - Allergies: 01/05 20:57 Claritin; sj1 20:57 Zithromax Z-Percy (Vomiting); sj1 - PMHx: 20:57 autoimmune disease; Hypertension; Hypothyroidism; osteoarthritis; sj1 - PSHx: 21:00 Ankle LT; Cholecystectomy; left arm; gastric sleeve; Rt Knee; Total abdominal dc2 hysterectomy; - Immunization history:: Adult Immunizations up to date. - Social history:: Smoking status: Patient denies any tobacco usage or history of. - Code Status:: Full code. Screenin:15 Abuse screen: Denies threats or abuse. Denies injuries from another. Nutritional dc2 screening: Has had N/V for 3 or more days. Nutritional screening: States has been having this on off x few weeks. Was seen here recently for same but has not followed up with specialist. States feels the same symptoms as before. . Tuberculosis screening: No symptoms or risk factors identified. Never had TB. 21:15 Fall Risk None identified. No fall in past 12 months (0 pts). No secondary diagnosis (0 dc2 pts). No IV (0 pts). Ambulatory Aid- None/Bed Rest/Nurse Assist (0 pts). Gait- Normal/Bed Rest/Wheelchair (0 pts) Mental Status- Oriented to own ability (0 pts). Total Devi Fall Scale indicates No Risk (0-24 pts). Assessment: 21:00 General: Appears in no apparent distress. Behavior is calm, cooperative. Pain: Quality dc2 of pain is described as burning, Is continuous, Alleviated by nothing. 21:00 Neuro: No deficits noted. Cardiovascular: No deficits noted. Denies chest pain, dc2 shortness of breath. GI: No deficits noted. Abd is soft Abdomen is tender to palpation in right upper and lower quadrant Reports lower abdominal pain, upper abdominal pain, nausea, vomiting, since on and off for weeks. : No signs and/or symptoms were reported regarding the genitourinary system. Urine is clear. Derm: No deficits noted. Musculoskeletal: No deficits noted. 22:19 Reassessment: Pt up to use bathroom. Urine sample to be collected. dc2 23:10 Reassessment: Pt co discomfort to throat because of NGT, VO for GI cocktail given to dc2 RIVERA Watters. Pt instructed on med to be given. 01/06 00:20 Reassessment: Attempt to call report, Am told that [facility] is not ready for report and will dc2 call back when ready. Pt informed of room assignment and will be going up shortly. Pt verbalize understanding. Vital Signs: 01/05 20:55 BP 136 / 108; Pulse 67; Resp 18; Temp 98.6; Pulse Ox 100% ; Weight 83.91 kg (R); Height sj1 5 ft. 8 in. (172.72 cm) (R); Pain 8/10; 23:00 BP 152 / 85; Pulse 82; Resp 18; Temp 97.6(O); Pulse Ox 100% ; Pain 7/10; dc2 01/06 00:00 BP 156 / 82; Pulse 86; Resp 17; Pulse Ox 99% ; Pain 2/10; dc2 01/05 20:55 Body Mass Index 28.13 (83.91 kg, 172.72 cm) [facility] ED Course: 01/05 20:45 Patient arrived in ED. ja2 20:57 Triage completed. sj1 21:00 Judith Bowling FNP-C is PHCP. kb 21:00 Pino Pereyra MD is Attending Physician. kb 21:00 Arm band placed on right wrist. dc2 21:00 Placed in gown. Bed in low position. Call light in reach. Side rails up X 1. Cardiac dc2 monitor on. Pulse ox on. NIBP on. Door closed. Lights dimmed. Warm blanket given. 21:35 Inserted saline lock: 20 gauge in left antecubital area, using aseptic technique. Blood dc2 collected. 21:39 Basic Metabolic Panel Sent. dc2 21:39 Basic Metabolic Panel Sent. dc2 21:40 Lida Merino, RN is Primary Nurse. dc2 21:40 CBC with Diff Sent. dc2 21:40 Hepatic Function Sent. dc2 21:40 Lipase Sent. dc2 21:40 CT Abd/Pelvis - IV Contrast Only Sent. dc2 21:[address] via stretcher. dc2 21:50 CT Abd/Pelvis - IV Contrast Only In Process Unspecified. EDMS 21:[address] back from [address]. dc2 22:17 Alonso Roberts MD is Hospitalizing Provider. kb 22:18 Sumanth Molina is Hospitalizing Provider. kb 22:53 SARS-COV-2 RT PCR Sent. dc2 23:00 NGT: inserted 14 Fr. via right nare. verified placement of air over stomach, verified dc2 return of gastric contents, to intermittent suction. Returned bile. Patient tolerated well. 23:18 No provider procedures requiring assistance completed. dc2 01/06 00:14 Patient admitted, IV remains in place. intact. dc2 Administered Medications: 01/05 21:35 Drug: NS 0.9% 1000 ml Route: IV; Rate: 1000 ml; Infused Over: 1 hrs; Site: left dc2 antecubital; Delivery: Primary tubing; 23:12 Follow up: IV Status: Completed infusion; IV Intake: 1000ml dc2 21:39 Drug: Zofran (Ondansetron) 4 mg Route: IVP; Site: left antecubital; dc2 22:00 Follow up: Response: No adverse reaction dc2 22:32 Drug: Flagyl (metroNIDAZOLE) 500 mg Volume: 100 ml; Route: IVPB; Rate: 200 ml/hr; dc2 Infused Over: 30 mins; Site: left antecubital; 23:05 Follow up: IV Status: Completed infusion; IV Intake: 100ml dc2 22:53 Drug: Zofran (Ondansetron) 4 mg Route: IVP; Site: left antecubital; dc2 23:20 Follow up: Response: Nausea is decreased dc2 23:15 Drug: GI Cocktail without - (Maalox Suspension 30 ml, Lidocaine Liquid 2 % 15 dc2 ml) Route: PO; 23:59 Follow up: Response: Pain is decreased dc2 23:25 Drug: Cipro (ciprofloxacin) 400 mg Volume: 200 ml; Route: IVPB; Rate: 200 ml/hr; dc2 Infused Over: 60 mins; Site: left antecubital; Delivery: Primary tubing; Intake: 23:05 IV: 100ml; Total: 100ml. dc2 23:12 IV: 1000ml; Total: 1100ml. dc2 Outcome: 22:17 Decision to Hospitalize by Provider. 01/06 00:26 Admitted to Med/surg accompanied by tech, via stretcher, room 231, with chart, Report dc2 called to RIVERA Quinn Condition: stable Instructed on the need for admit, Demonstrated understanding of instructions. 00:28 Patient left the ED. dc2 Signatures: Dispatcher [employer] EDMS Judith Bowling FNP-C FNP-Kerrie Alston Denise, RN RN dc2 Inez Gaffney RN RN sj1
--- NOTE | 2021-01-05 22:18 | EDPHYS ---
Physician Documentation [facility] Name: Mahsa Joseph Age: 50 yrs Sex: Female : 1970 Arrival Date: 01/05/2021 Time: 20:45 Bed 24 Private MD: ED Physician Pino Pereyra HPI: 01/05 21:08 This 50 yrs old Black Female presents to ER via Ambulatory with complaints of Abdominal kb Pain, Vomiting. 21:08 The patient presents with abdominal pain in the right upper quadrant. Onset: The kb symptoms/episode began/occurred 3 day(s) ago. The symptoms do not radiate. Associated signs and symptoms: Pertinent positives: nausea and vomiting, Pertinent negatives: fever. The symptoms are described as constant. Modifying factors: The symptoms are alleviated by nothing, the symptoms are aggravated by nothing. Severity of pain: At its worst the pain was moderate in the emergency department the pain is unchanged. The patient has not experienced similar symptoms in the past. The patient has not recently seen a physician. 21:09 Pt reports abd pain, nausea and vomiting since Saturday. STates she had the same kb symptoms 2 weeks ago that lasted for a week. Was seen at that time, had CT and labs that were normal. States the symptoms resolved for a week before starting again. 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 - Social history:: Smoking status: Patient denies any tobacco usage or history of. - Code Status:: Full code. ROS: 21:08 Constitutional: Negative for fever, chills, and weight loss. kb 21:08 Abdomen/GI: Positive for abdominal pain, nausea and vomiting, Negative for diarrhea, constipation. 21:08 All other systems are negative. Exam: 21:08 Constitutional: This is a well developed, well nourished patient who is awake, alert, kb and in no acute distress. Head/Face: Normocephalic, atraumatic. ENT: Moist Mucous membranes Cardiovascular: Regular rate and rhythm with a normal S1 and S2. No gallops, murmurs, or rubs. No pulse deficits. Respiratory: Respirations even and unlabored. No increased work of breathing, no retractions or nasal flaring. Back: No spinal tenderness. No costovertebral tenderness. Full range of motion. Skin: Warm, dry with normal turgor. Normal color. MS/ Extremity: Pulses equal, no cyanosis. Neurovascular intact. Full, normal range of motion. Neuro: Awake and alert, GCS 15, oriented to person, place, time, and situation. Moves all extremities. Normal gait. Psych: Awake, alert, with orientation to person, place and time. Behavior, mood, and affect are within normal limits. 21:08 Abdomen/GI: Inspection: abdomen appears normal, Bowel sounds: normal, in all quadrants, Palpation: soft, in all quadrants, moderate abdominal tenderness, in the right upper quadrant and right lower quadrant. Vital Signs: 20:55 BP 136 / 108; Pulse 67; Resp 18; Temp 98.6; Pulse Ox 100% ; Weight 83.91 kg (R); Height sj1 5 ft. 8 in. (172.72 cm) (R); Pain 8/10; 23:00 BP 152 / 85; Pulse 82; Resp 18; Temp 97.6(O); Pulse Ox 100% ; Pain 7/10; dc2 01/06 00:00 BP 156 / 82; Pulse 86; Resp 17; Pulse Ox 99% ; Pain 2/10; dc2 01/05 20:55 Body Mass Index 28.13 (83.91 kg, 172.72 cm) [facility] MDM: 01/05 21:01 Patient medically screened. kb 21:08 Data reviewed: vital signs, nurses notes. Data interpreted: Pulse oximetry: on room air kb is 100 %. Interpretation: normal. 22:14 Counseling: I had a detailed discussion with the patient and/or guardian regarding: the kb historical points, exam findings, and any diagnostic results supporting the discharge/admit diagnosis, lab results, radiology results, the need for further work-up and treatment in the hospital. Physician consultation: Sina Ness MD was contacted at 22:15, regarding consult, patient's condition, and will see patient in inpatient room. 22:15 Physician consultation: Ole SILVA was contacted at 22:15, regarding admission, to kb the medical/surgical unit. patient's condition, and will see patient in ED, shortly. 01/05 21:01 Order name: Basic Metabolic Panel kb 01/05 21:01 Order name: CBC with Diff; Complete Time: 22:17 kb 01/05 21:01 Order name: Hepatic Function; Complete Time: 22:08 kb 01/05 21:01 Order name: Lipase; Complete Time: 22:08 kb 01/05 21:01 Order name: Basic Metabolic Panel; Complete Time: 22:08 EDMS 01/05 21:07 Order name: CT Abd/Pelvis - IV Contrast Only; Complete Time: 22:03 kb 01/05 22:51 Order name: SARS-COV-2 RT PCR; Complete Time: 23:44 EDMS 01/05 23:19 Order name: CREATININE WHOLE BLOOD; Complete Time: 23:22 EDMS 01/05 21:01 Order name: IV Saline Lock; Complete Time: 21:39 kb 01/05 21:01 Order name: Labs collected and sent; Complete Time: 21:39 kb 01/05 22:11 Order name: NG Tube; Complete Time: 22:53 kb 01/05 23:15 Order name: CONS Physician Consult EDMS Administered Medications: 21:35 Drug: NS 0.9% 1000 ml Route: IV; Rate: 1000 ml; Infused Over: 1 hrs; Site: left dc2 antecubital; Delivery: Primary tubing; 23:12 Follow up: IV Status: Completed infusion; IV Intake: 1000ml dc2 21:39 Drug: Zofran (Ondansetron) 4 mg Route: IVP; Site: left antecubital; dc2 22:00 Follow up: Response: No adverse reaction dc2 22:32 Drug: Flagyl (metroNIDAZOLE) 500 mg Volume: 100 ml; Route: IVPB; Rate: 200 ml/hr; dc2 Infused Over: 30 mins; Site: left antecubital; 23:05 Follow up: IV Status: Completed infusion; IV Intake: 100ml dc2 22:53 Drug: Zofran (Ondansetron) 4 mg Route: IVP; Site: left antecubital; dc2 23:20 Follow up: Response: Nausea is decreased dc2 23:15 Drug: GI Cocktail without - (Maalox Suspension 30 ml, Lidocaine Liquid 2 % 15 dc2 ml) Route: PO; 23:59 Follow up: Response: Pain is decreased dc2 23:25 Drug: Cipro (ciprofloxacin) 400 mg Volume: 200 ml; Route: IVPB; Rate: 200 ml/hr; dc2 Infused Over: 60 mins; Site: left antecubital; Delivery: Primary tubing; Disposition: 01/06 03:45 Co-signature as Attending Physician, Pino Pereyra MD I agree with the assessment and rn plan of care. Attestation: The patient's history, exam findings, diagnostics, and a summary of any interventions or procedures was reviewed in detail with Judith HAM. Disposition Summary: 01/05/21 22:17 Hospitalization Ordered Hospitalization Status: Inpatient Admission kb Location: Telemetry/[facility] (Inpatient) kb Condition: Stable kb Problem: new kb Symptoms: are unchanged kb Bed/Room Type: Standard kb Provider: Sumanth Molina(01/05/21 22:18) kb Room Assignment: [facility](01/06/21 00:11) Diagnosis - Small Bowel Obstruction kb Forms: - Medication Reconciliation Form kb - SBAR form kb Signatures: Dispatcher [employer] EDJudith Art FNP-C FNP-Stephanie Buitrago RN RN Pino Reaves MD MD rn Wilber, Lida RN RN dc2 Inez Gaffney RN RN sj1 Corrections: (The following items were deleted from the chart) 01/05 22:18 22:17 Alonso Roberts kb 22:51 22:12 CORONAVIRUS+MR.LAB.BRZ ordered. [facility] 01/06 00:11 01/05 22:17 kathi hill
[2021-01-05] MEDS ORDERED: METRONIDAZOLE 500mg IVPB 500 MG/100 ML BAG IV ONE (22:55)
[2021-01-05] MEDS ORDERED: CIPROFLOXACIN 400mg IV 400 MG/200 ML BAG IV ONE (22:55)
[2021-01-05] MEDS ORDERED: NA CHLORIDE 0.9% 100 ML ONE (22:55)
[2021-01-05] MEDS ORDERED: MAGNES/ALUMIN/SIMET 30ML UCUP ONE (23:30)
[2021-01-05] MEDS ORDERED: LIDOCAINE VISCOUS 2% SOLN 15 ML UDC ONE (23:30)
--- NOTE | 2021-01-06 00:40 | P.HP ---
Certification for Inpatient Patient admitted to: Inpatient With expected LOS: <2 Midnights Patient will require the following post-hospital care: None Practitioner: I am a practitioner with admitting privileges, knowledge of patient current condition, hospital course, and medical plan of care. Services: Services provided to patient in accordance with Admission requirements found in Title 42 Section 412.3 of the Code of Federal Regulations Patient History Date of Service: 01/05/21 Primary Care Provider: Anatoly Reason for admission: SBO History of Present Illness: Ms. Joseph is a 50 yo F with HTN and hypothyroidism and history of multiple abdominal surgeries who presents with two weeks of abdominal pain and cramps as well as intractable nausea and vomiting. Her symptoms seemed like they were improving, but they have been worsening since Saturday. Symptoms worse with eating and drinking, relieved by nothing. She says she has only been able to keep down a few spoonfuls of food. she had a small bowel movement this morning but it had been several days since her last one. She is still able to pass gas. NG tube placed in the ED. CT Abdomen IMPRESSION: Dilated small bowel with two transition points and swirling of the mesentery concerning for a closed loop small bowel obstruction. Ascites is present. Recommend surgical consultation Allergies NSAIDS (Non-Steroidal Anti-Inflamma Allergy (Verified 08/24/20 06:52) Kidney failure Home Medications: Abatacept [Orencia Clickject] 125 mg SQ EVERY 7TH DAY 08/19/20 Amlodipine [Norvasc*] 5 mg PO DAILY 08/19/20 Cyanocobalamin [Vitamin B-12*] 1,000 mcg PO DAILY 08/19/20 Ergocalciferol (Vitamin D2) [Vitamin D 50,000 Unit Cap] 1 cap PO EVERY 7TH DAY 08/19/20 Folic Acid 3 mg PO DAILY 08/19/20 Leflunomide 20 mg PO DAILY 08/19/20 Levothyroxine [Synthroid*] 100 mcg PO [id number] 08/19/20 Methotrexate [Methotrexate*] 2.5 mg PO DAILY 08/19/20 Simvastatin 10 mg PO DAILY 08/19/20 Vitamin A [Vitamin A*] 10,000 iu PO DAILY 08/19/20 Apixaban [Eliquis *] 2.5 mg PO BID tablet 08/26/20 Hydrocodone 7.5/APAP 325 [Coalgate 7.5/325 mg*] 1 tab PO Q4H PRN tab 08/26/20 Methotrexate [Methotrexate*] 2.5 mg PO DAILY tab 08/26/20 - Past Medical/Surgical History Diabetic: No -: History of right popliteal DVT -: Rheumatoid arthritis -: Hypertension -: Hyperlipidemia -: Osteoarthritis -: Obesity, BMI 30.8 -: History of gastric sleeve -: Hypothyroidism -: Gastric sleeve -: Left shoulder surgery x2 -: Left ankle surgery x2 -: Hysterectomy -: Cholecystectomy -: Hernia repair Psychosocial/ Personal History: Patient lives at home. - Family History Father -: Hypertension, Cancer, Kidney disease, Other (see notes) Notes: rheumatoid arthritis, agent orange exposure Mother -: Diabetes, Cancer Notes: breast and lung cancer Sister -: Diabetes, Cancer Notes: breast and lung cancer Brother -: Diabetes, Kidney disease - Social History Smoking Status: Never smoker Alcohol use: No CD- Drugs: No Caffeine use: Yes Place of Residence: Home Review of Systems 10-point ROS is otherwise unremarkable General: Malaise Eyes: Unremarkable ENT: Unremarkable Respiratory: Unremarkable Cardiovascular: Unremarkable Gastrointestinal: Nausea, Vomiting, Abdominal Pain Genitourinary: Unremarkable Musculoskeletal: Unremarkable Integumentary: Unremarkable Neurological: Unremarkable Lymphatics: Unremarkable Physical Examination - Physical Exam General: Alert, In no apparent distress, Oriented x3, Cooperative HEENT: Atraumatic, PERRLA, Mucous membr. moist/pink, EOMI, Sclerae nonicteric Neck: Supple, 2+ carotid pulse no bruit, No LAD, Without JVD or thyroid abnormality Respiratory: Clear to auscultation bilaterally, Normal air movement Cardiovascular: Regular rate/rhythm, Normal S1 S2 Gastrointestinal: Normal bowel sounds, Soft and benign, Non-distended, No masses, No rebound, No guarding, Tenderness Musculoskeletal: No tenderness Integumentary: No rashes Neurological: Normal speech, Normal strength at 5/5 x4 extr, Normal tone, Normal affect Lymphatics: No axilla or inguinal lymphadenopathy - Studies Laboratory Data (last 24 hrs) 01/05/21 21:30: WBC 6.50, Hgb 13.5, Hct 40.6, Plt Count 241 01/05/21 21:30: Sodium 138, Potassium 4.0, BUN 19 H, Creatinine 1.10, Glucose 113 H, Total Bilirubin 0.5, AST 15, ALT 23, Alkaline Phosphatase 67, Lipase 76 Assessment and Plan - Problems (Diagnosis) (1) HTN (hypertension) Current Visit: Yes Status: Acute (2) Rheumatoid arthritis Current Visit: Yes Status: Acute (3) Hypothyroid Current Visit: Yes Status: Acute (4) SBO (small bowel obstruction) Current Visit: Yes Status: Acute - Plan surgery consulted NG tube placed NPO, continue IV fluids, antiemetics and pain management as needed continue IV antibiotics repeat abdominal xray in the AM BP stable, continue to monitor DVT ppx Discharge Plan: Home Plan to discharge in: 48 Hours - Advance Directives Does patient have a Living Will: No Does patient have a Durable POA for Healthcare: No - Code Status/Comfort Care Code Status Assessed: Yes (full code ) Critical Care: No Time Spent Managing Pts Care (In Minutes): 70
[2021-01-06] MEDS ORDERED: MORPHINE 2 MG/ML SYR IV PRN (00:41)
[2021-01-06] MEDS ORDERED: ONDANSETRON 4 MG/2 ML VIAL IV PRN (00:41)
[2021-01-06] MEDS: NA CHLORIDE 0.9% 1,000 ML IV SCH ×2 (00:41→09:08)
[2021-01-06] MEDS ORDERED: HYDROMORPHONE HCL 0.5 MG/0.5 ML INJ IV ONE (03:00)
[2021-01-06 05:13] LABS: Absolute Lymphocytes (CBC) 0.8 K/uL (0.7-4.9); Basophils % 0.3 % (0-1.3); Hematocrit 38.1 % (36.0-45.0); Lymphocytes % 11.7 % (15.3-44.8); MPV 8.6 fL (7.6-11.3); RBC Red Blood Cell Count 4.23 M/uL (3.86-4.86)
[2021-01-06 05:38] LABS: Albumin 3.4 g/dL (3.4-5.0); Bilirubin Total 0.4 mg/dL (0.2-1.0); Magnesium 2.2 mg/dL (1.8-2.4); Phosphorus 3.5 mg/dL (2.5-4.9); Potassium 4.2 mmol/L (3.5-5.1); Protein, Total 7.6 g/dL (6.4-8.2); Thyroid Stimulating Hormone 1.19 uIU/mL (0.360-3.740)
--- NOTE | 2021-01-06 07:17 | RAD REPORT ---
EXAM DESCRIPTION: RAD - Abdomen W Erect - 01/06/2021 6:33 am CLINICAL HISTORY: SBO COMPARISON: Abdomen Pelvis W Contrast dated 01/05/2021 TECHNIQUE: Supine and upright views of the abdomen were obtained. FINDINGS: NG tube is in place in the decompressed stomach. Tip is in the proximal stomach with the s yaz port of the tubing at or slightly above the GE junction. Dilated small bowel pattern is similar to the prior day CT study. No progression of the dilatation. N o free air or pneumatosis seen. Cholecystectomy clips are present. Minimal amount of contrast is seen in the decompressed bladder. IMPRESSION: No change the dilated small bowel pattern since the prior day CT study. No free air or pneumatosis have developed. Stomach is decompressed. Tip of the NG tube is in the proximal stomach with the side port at or sligh tly above the GE junction.
[2021-01-06] MEDS: METRONIDAZOLE 500mg IVPB 500 MG/100 ML BAG IV SCH ×3 (08:58→23:53)
[2021-01-06] MEDS ORDERED: Ringers Lactate 1,000 ML IV ONE ×2 (11:36→13:35)
[2021-01-06] MEDS ORDERED: SCOPOLAMINE HYDROBROMIDE PATCH TD ONE (11:42)
[2021-01-06] MEDS: CIPROFLOXACIN 400mg IV 400 MG/200 ML BAG IV SCH ×2 (12:00→23:53)
[2021-01-06] MEDS ORDERED: ROCURONIUM 50 MG/5 ML VIAL IV ONE ×2 (12:19→13:17)
[2021-01-06] MEDS ORDERED: propofoL 200 MG/20 ML VIAL IV ONE (12:19)
[2021-01-06] MEDS ORDERED: LIDOCAINE 2% MPF 5 ML VIAL ONE (12:19)
[2021-01-06] MEDS ORDERED: dexAMETHasone 10 MG/ML VIAL ONE ×2 (12:19→13:07)
[2021-01-06] MEDS ORDERED: MIDAZOLAM HCL 2 MG/2 ML INJ ONE (12:20)
[2021-01-06] MEDS ORDERED: ONDANSETRON 4 MG/2 ML VIAL ONE (12:20)
[2021-01-06] MEDS ORDERED: FENTANYL CITR 250 MCG/5 ML ONE (12:20)
--- NOTE | 2021-01-06 13:43 | P.BOP ---
Preoperative diagnosis: SBO Postoperative diagnosis: same Primary procedure: Exploratory laparotomy, Lysis of adhesions Secondary procedure: small bowel resection and anastomosis X 2 Liability Claims Representative: Amara Aragon ([place]) Estimated blood loss: <50cc Specimen: small bowel x 2 Findings: as above Anesthesia: General Complications: None Drain(s): Nasogastric, Urinary catheter Transferred to: Recovery Room Condition: Good
[2021-01-06] MEDS ORDERED: GLYCOPYRROLATE 0.2 MG/ML SYR ONE (13:53)
[2021-01-06] MEDS ORDERED: NEOSTIGMINE 1 MG/ML -5 ML ONE (13:57)
[2021-01-06] MEDS: MORPHINE 4 MG/ML SYR ONE ×2 (13:57→14:06)
[2021-01-06] MEDS ORDERED: MORPHINE 4 MG/ML SYR ONE (14:49)
--- NOTE | 2021-01-06 14:58 | P.PN ---
Subjective Date of Service: 01/06/21 Primary Care Provider: Anatoly Chief Complaint: SBO Patient reports some improvement in abdominal pain. Exploratory laparotomy today. Physical Examination - Vital Signs Temperature: 99.8 F Blood Pressure: 155/87 Pulse: 61 Respirations: 18 Pulse Ox (%): 98 - Studies Laboratory Data (last 24 hrs) 01/05/21 21:30: WBC 6.50, Hgb 13.5, Hct 40.6, Plt Count 241 01/05/21 21:30: Sodium 138, Potassium 4.0, BUN 19 H, Creatinine 1.10, Glucose 113 H, Total Bilirubin 0.5, AST 15, ALT 23, Alkaline Phosphatase 67, Lipase 76 Assessment And Plan - Current Problems (Diagnosis) (1) SBO (small bowel obstruction) Current Visit: Yes Status: Acute (2) HTN (hypertension) Current Visit: Yes Status: Acute (3) Hypothyroid Current Visit: Yes Status: Acute (4) Rheumatoid arthritis Current Visit: Yes Status: Acute - Plan Physical examination General: Not in acute distress, well built. Eyes: anicteric sclera. Conjunctiva not pale. Neck: Supple, no lymphadenopathy. Lungs: Clear to auscultation bilaterally. Adequate breath sounds bilaterally. No rhonchi, no rales no crackles. Heart: Heart sounds 1 and 2 heard and normal, normal rate, regular rhythm. No murmur. Abdomen: Soft, nondistended, moderate tenderness on deep palpation, high- pitched bowel sounds, no organomegaly, no costovertebral angle tenderness. Extremities: No pitting edema bilateral lower extremities, no digital cyanosis. Neurology: Oriented x3, no focal motor deficits. Psychiatry: Normal thought content, normal behavior. Skin: Warm and dry. No rashes or ulcers. Assessment: Small-bowel obstruction Rheumatoid arthritis Hypertension Hypothyroidism Plan: Status post exploratory laparotomy, lysis of adhesion, small bowel resection with end-to-end anastomosis. Continue supportive measures-IV hydromorphone p.r.n. for pain. Antiemetics as needed. Keep NPO over the weekend per Dr. Ness. Empiric IV antibiotics. IV Synthroid for hypothyroidism. Hydralazine IV p.r.n. for BP spikes. IV fluid Monitor and optimize electrolytes.
--- NOTE | 2021-01-06 15:32 | CON ---
Date of Consultation: 01/06/2021 Reason For Service: Small bowel obstruction. History Of Present Illness: This is a case of a 50-year-old patient comes to us with abdominal pain. She has been having some issues with her belly for the last 3 days, but in reality, she see that sh saad has this about a week and half ago, was like that for few days. She has so some kind of improvemen t on Saturday, but Saturday once again, get this back again and this time gets worse to the point marilin t so much abdominal pain that she came to the ER. She has a history of gastric stapling, but was in 2018. She says that surgery went well and she lost about 100 pounds. She denies any dysuria, hematu loulou, hematochezia, melena. Denies any recent traveling out of the country. Denies any family member sick at home. She does not remember her last colonoscopy. Past Medical History: History of DVT in the right popliteal region, hypertension, hyperlipidemia, os teoarthritis. Once again, she used to be morbid obese and she has a gastric sleeve. She has history of hypothyroidism, inguinal hernia. The patient also had left shoulder surgery x2, left ankle surge ry, hysterectomy, cholecystectomy. Family History: Includes diabetes, and breast and lung cancer. Social History: She does not smoke. She does not drink alcohol. Medications: Review including Norvasc, vitamin B12, vitamin D2, Synthroid, methotrexate, Eliquis. Physical Examination: General: The patient is awake and alert. HEENT: Pupils anicteric. NG tube in place, still vomiting. Chest: Clear. Abdomen: Soft and depressible. Softly distended. Mild generalized tenderness and guarding present on the lower abdomen. Pelvic: Deferred. Rectal: Deferred. Breasts: Deferred. Extremities: Good capillary refill. Imaging: CAT scan of the abdomen and pelvis shows dilated small bowel with to transition point and s wirling of the mesentery concerning for a closed-loop small bowel obstruction. Ascites present. For that reason, surgical consultation was obtained. Laboratory Data: Blood work shows a WBC count of 6.9 with hemoglobin of 12.6. Potassium 4.2, glucos e 110. Assessment: 50-year-old patient with abdominal pain. It has been like that for about a week and guevara f and improved, getting worse, right now distended. NG tube is still putting outflow. Still vomitin g even with the NG tube. She feels worse since last night. Abdomen is becoming more tender, distend ed. CAT scan shows some mesenteric stranding with a possible closed-loop hernia. Plan: I explained the patient differential diagnosis of small bowel obstruction. Obviously, she is symptomatic. She has developed an abdominal pain and guarding and the risks of fat stranding and the bowel become ischemic and make us inclined to offer her the laparotomy, possible resection, possible ostomy with benefits, alternatives, and risks including, but not limited to infection, bleeding, dam age to adjacent structures as complication, recurrence, KS, and . She also understands this may not relieve the symptoms. She might need more than one surgical intervention. She does not want to wait now, which she was waiting for the last few days and she understands she is not getting better so she want to use surgical options. OR was immediately called. Case was booked emergently in OR. JO ANN/ORACIO Voice ID: [id number] Report ID: [id number]
[2021-01-06] MEDS: D5NS KCL 20MEQ 20 MEQ/1,000 ML BAG IV SCH (16:00)
[2021-01-06 16:51] LABS: Magnesium 1.9 mg/dL (1.8-2.4)
[2021-01-06] MEDS ORDERED: HYDRALAZINE HCL 20 MG/ML VIAL IV PRN (17:00)
--- NOTE | 2021-01-07 01:43 | OP ---
Date of Procedure: 01/06/2021 Surgeon: Sina Ness MD Electrical Controls Engineer: GINNY Givens. Preoperative Diagnosis: Small bowel obstruction. Postoperative Diagnosis: Small bowel obstruction. Procedures: Exploratory laparotomy, extensive lysis of adhesions, and small bowel resection and anas tomosis x2, 2 different sections. Estimated Blood Loss: Less than 50 cc. Specimen: Small bowel 2 sections. The small bowel had to be resected at [address] with 2 d ifferent anastomosis. Findings: The patient has a twisted bowel with extensive intraabdominal adhesions making the lumen o f the bowel so small that, that caused complete blockage of the bowel. There is scar tissue present and did not dilate, so those 2 segments had to be removed. Anesthesia: General plus local. Drains: The patient has an NG tube and the patient has a Larson catheter. Indications: This is the case of a female, who coma to us, unable to have any food for the last 2 we eks. She stated last week was bad. She recovered on her own. On Saturday, once again, it started al l over again. The patient was seen this morning with abdominal pain and not able to tolerate any t. NG tube is still putting some secretions, looked like old GI content. The patient developed more pain and based on the clinical findings and CT scan findings with possible mesenteric stranding, the decision was made to take her emergently to the operating room. After resuscitation and hydration, the patient was explained the need for bowel rest. A laparotomy, possible resection, possible ostomy with benefits, alternatives, and risks including, but not limited to infection, bleeding, damage to adjacent structures, anesthesia complication, recurrence, CO, and . She also understands this m ay not relieve the symptoms. She might need more than one surgical intervention. She understood, si gned the consent. Procedure In Detail: The patient was brought to the operating room, placed in supine position. Anes thesia was done without complication. Abdominal area was prepped and draped in a sterile fashion. A time-out was called. A midline incision was made. We were very careful since the patient had previ ous surgeries including gastric stapling and gallbladder, and we expected some scar tissue inside and we were able to open the fascia and then carefully opened the fascia and so we could perform laparot keshia. Immediately, we noticed that the patient had twisted bowel with adhesions present. We were abl e to carefully and methodically just do the lysis of adhesions that took about half the time just to do so. As we were removing the adhesions, we noticed the patient had a twisted bowel in the 2 segmen ts. At the end of the twist had adhesions in between 2, not allowing this to be undone on its own. This looked like it caused narrow points over the area of pivoting the small bowel. Once we removed adhesions, we exteriorized small bowel from ligament of Treitz down to the terminal ileum. We notice d these 2 segments of bowel that were twisted looked narrow, looked sclerotic, and it did not dilate. The bowel in between looked intact, so we proceeded to do 2 small bowel resections in the areas of the narrow point and affected bowel. So we did the first one with proximal and distal control, trans ected with the IVA 55. The mesentery was ligated with LigaSure. After that, the 2 small bowel piece s were placed together, showed good hemostasis, good color. We secured the end of that anastomosis w ith a silk. Then, we made 2 enterotomies, put the IVA between, created anastomosis with a IVA 55 and closed the anastomosis with a TA 60. The mesentery was approximated with 3-0 chromic. We checked f or hemostasis and we also check for anastomosis and looked patent. The second anastomosis was severa l feet apart and we did exactly the same technique, same bowel resection, and the same closure. Both areas were checked for hemostasis. At the end of that, we saw flow through the anastomosis and the bowel started to get normal shape in the distal area. The area was profusely irrigated. The bowel w as placed in a way that it did not twist. Profuse irrigation of the abdomen, it was closed, and then after obtaining sponge count and instrument counts correct, we proceeded to close the fascia with #2 nylon and the subcutaneous tissue with 3-0 chromic and skin with staple. The NG tube will remain in the stomach. The patient will have a Larson there. We going to keep it until tomorrow for comfort s enrique the patient has difficulty moving. She is not fully that strong due to being without eating for few weeks. The patient currently is on Eliquis, so we going to keep an eye for hemoglobin. The pat ient understood I am not going to be in town this weekend. Dr. Mejia, surgeon, will be helping wit h covering the patient and making sure she is safe over the weekend. JO ANN/ORACIO Voice ID: [id number] Report ID: [id number]
[2021-01-07] MEDS: D5NS KCL 20MEQ 20 MEQ/1,000 ML BAG IV SCH ×3 (01:59→21:30)
[2021-01-07] MEDS ORDERED: LEVOTHYROXINE SODIUM 100 MCG VIAL IV SCH (06:00)
[2021-01-07 06:23] LABS: Absolute Lymphocytes (CBC) 0.9 K/uL (0.7-4.9); Basophils % 0.1 % (0-1.3); Hematocrit 40.4 % (36.0-45.0); Lymphocytes % 7.6 % (15.3-44.8); MPV 8.5 fL (7.6-11.3); RBC Red Blood Cell Count 4.43 M/uL (3.86-4.86)
[2021-01-07 06:59] LABS: Albumin 3.1 g/dL (3.4-5.0); Bilirubin Total 0.9 mg/dL (0.2-1.0); Potassium 3.8 mmol/L (3.5-5.1); Protein, Total 7.1 g/dL (6.4-8.2)
[2021-01-07] MEDS: METRONIDAZOLE 500mg IVPB 500 MG/100 ML BAG IV SCH ×2 (09:35→16:48)
[2021-01-07] MEDS: CIPROFLOXACIN 400mg IV 400 MG/200 ML BAG IV SCH (12:00)
--- NOTE | 2021-01-07 13:15 | P.PN ---
Subjective Date of Service: 01/07/21 Primary Care Provider: Anatoly Chief Complaint: SBO Status post exploratory laparotomy for SBO, bowel resection and end-to-end anastomosis. NG-tube to suction in place. Patient is NPO. She stated pain is better. Physical Examination - Vital Signs Temperature: 97.9 F Blood Pressure: 143/84 Pulse: 66 Respirations: 18 Pulse Ox (%): 100 Assessment And Plan - Current Problems (Diagnosis) (1) SBO (small bowel obstruction) Current Visit: Yes Status: Acute (2) HTN (hypertension) Current Visit: Yes Status: Acute (3) Hypothyroid Current Visit: Yes Status: Acute (4) Rheumatoid arthritis Current Visit: Yes Status: Acute - Plan Physical examination General: Not in acute distress. Eyes: anicteric sclera. Conjunctiva not pale. Lungs: Clear to auscultation bilaterally. Adequate breath sounds bilaterally. No rhonchi, no rales no crackles. Heart: Heart sounds 1 and 2 heard and normal, normal rate, irregular rhythm. No murmur. Abdomen: Soft, nondistended, abdominal binder in place, no bowel sounds. Extremities: No pitting edema bilateral lower extremities, no digital cyanosis. Neurology: Oriented x3, no focal motor deficits. Psychiatry: Normal thought content, normal behavior. Skin: Warm and dry. No rashes or ulcers. Assessment: Small-bowel obstruction Rheumatoid arthritis Hypertension Hypothyroidism Plan: Status post exploratory laparotomy, lysis of adhesion, small bowel resection with end-to-end anastomosis. Continue supportive measures-IV hydromorphone p.r.n. for pain. Antiemetics as needed. NG-tube to suction Keep NPO over the weekend per Dr. Ness. IV D5 NS + KCL. Empiric IV antibiotics. Hydralazine IV p.r.n. for BP spikes. Monitor and optimize electrolytes.
[2021-01-07 16:36] LABS: Magnesium 2.1 mg/dL (1.8-2.4); Phosphorus 1.6 mg/dL (2.5-4.9)
[2021-01-07] MEDS ORDERED: MINERAL OIL 30 ML UCUP PO ONE (17:13)
--- NOTE | 2021-01-07 17:56 | P.PN ---
Date of Service: 01/07/21 I am providing cross coverage for Dr. Ness today. Patient looks well today, no specific complaints. He states that she is tired. Has noted that her stomach has started growling, and she feels better than when she did when she first came in. Nasogastric tube is still bothering her however. O: Abdomen is soft, incisions are clean, A: Patient appears to be surgically stable status post exploratory laparotomy with small bowel resection P: Continue current therapy, will give the patient 1 dose of mineral oil via nasogastric tube tonight. She may also have some ice chips and popsicles. Otherwise continue current therapy.
[2021-01-08 05:39] LABS: Absolute Lymphocytes (CBC) 1.2 K/uL (0.7-4.9); Basophils % 0.1 % (0-1.3); Hematocrit 34.7 % (36.0-45.0); MPV 8.4 fL (7.6-11.3); RBC Red Blood Cell Count 3.83 M/uL (3.86-4.86)
[2021-01-08 06:07] LABS: ALT/SGPT 16 U/L (12-78); AST/SGOT 12 U/L (15-37); Albumin 2.6 g/dL (3.4-5.0); Alkaline Phosphatase 48 U/L (45-117); BUN Blood Urea Nitrogen 9 mg/dL (7-18); Bicarbonate 26 mmol/L (21-32); Bilirubin Total 0.6 mg/dL (0.2-1.0); Glucose Level 122 mg/dL (74-106); Potassium 3.5 mmol/L (3.5-5.1); Protein, Total 6.3 g/dL (6.4-8.2); Sodium Level 141 mmol/L (136-145)
[2021-01-08] MEDS: D5NS KCL 20MEQ 20 MEQ/1,000 ML BAG IV SCH ×2 (08:00→14:13)
[2021-01-08] MEDS: METRONIDAZOLE 500mg IVPB 500 MG/100 ML BAG IV SCH ×3 (08:10→17:01)
--- NOTE | 2021-01-08 11:28 | P.PN ---
Subjective Date of Service: 01/08/21 Primary Care Provider: Anatoly Chief Complaint: SBO Status post exploratory laparotomy for SBO, bowel resection and end-to-end anastomosis. NG-tube to suction with bile-stained output. Patient eating ice chips. No flatus, no BM. Physical Examination - Vital Signs Temperature: 99.7 F Blood Pressure: 139/78 Pulse: 71 Respirations: 18 Pulse Ox (%): 99 Assessment And Plan - Current Problems (Diagnosis) (1) SBO (small bowel obstruction) Current Visit: Yes Status: Acute (2) HTN (hypertension) Current Visit: Yes Status: Acute (3) Hypothyroid Current Visit: Yes Status: Acute (4) Rheumatoid arthritis Current Visit: Yes Status: Acute - Plan Physical examination General: Not in acute distress. Eyes: anicteric sclera. Lungs: Clear to auscultation bilaterally. Adequate breath sounds bilaterally. No rhonchi, no rales no crackles. Heart: Heart sounds 1 and 2 heard and normal, normal rate, irregular rhythm. Abdomen: Soft, nondistended, abdominal binder in place,. Extremities: No pitting edema bilateral lower extremities, no digital cyanosis. Neurology: Oriented x3, no focal motor deficits. Psychiatry: Normal thought content, normal behavior. Skin: Warm and dry. No rashes or ulcers. Assessment: Small-bowel obstruction Rheumatoid arthritis Hypertension Hypothyroidism Plan: Status post exploratory laparotomy, lysis of adhesion, small bowel resection with end-to-end anastomosis. Continue supportive measures-IV hydromorphone p.r.n. for pain. Antiemetics as needed. NG-tube to suction Patient started on ice chips. Continue IV D5 NS + KCL. Monitor and optimize electrolytes. Continue IV antibiotics. Dr. Aldana is following this weekend Hydralazine IV p.r.n. for BP spikes.
[2021-01-08] MEDS: CIPROFLOXACIN 400mg IV 400 MG/200 ML BAG IV SCH ×2 (11:50)
[2021-01-08] MEDS: HYDROMORPHONE HCL 1 MG/ML INJ IV PRN (14:11)
[2021-01-08 15:57] LABS: Phosphorus 2.1 mg/dL (2.5-4.9)
[2021-01-08] MEDS ORDERED: MINERAL OIL 30 ML UCUP PO ONE (18:22)
--- NOTE | 2021-01-08 18:51 | P.PN ---
Date of Service: 01/08/21 I am providing cross coverage for Dr. Ness today. S: Patient looks much improved since yesterday. Complaining of pain in her nose , from the nasogastric tube. Wants to have it removed. States that her stomach is rumbling. Has not passed gas yet but is getting up to ambulate to try and encourage her body to do so. Also would like her Larson catheter removed. O: Abdomen is soft, vital signs are stable. Minimal out through nasogastric tube. Good urine output. A: Stable status post exploratory laparotomy with small bowel resection for bowel obstruction and adhesions. I will DC her NG tube and Larson catheter. We will start her on some clear liquids this evening.
[2021-01-09] MEDS: METRONIDAZOLE 500mg IVPB 500 MG/100 ML BAG IV SCH ×3 (00:03→17:13)
[2021-01-09] MEDS: D5NS KCL 20MEQ 20 MEQ/1,000 ML BAG IV SCH ×3 (05:27→21:12)
[2021-01-09 05:57] LABS: Absolute Lymphocytes (CBC) 1.5 K/uL (0.7-4.9); Basophils % 0.4 % (0-1.3); Hematocrit 31.6 % (36.0-45.0); Lymphocytes % 18.4 % (15.3-44.8); RBC Red Blood Cell Count 3.48 M/uL (3.86-4.86)
[2021-01-09 06:21] LABS: Potassium 3.5 mmol/L (3.5-5.1); Sodium Level 142 mmol/L (136-145)
[2021-01-09 06:22] LABS: ALT/SGPT 16 U/L (12-78); AST/SGOT 10 U/L (15-37); Albumin 2.5 g/dL (3.4-5.0); Alkaline Phosphatase 42 U/L (45-117); BUN Blood Urea Nitrogen 11 mg/dL (7-18); Bicarbonate 26 mmol/L (21-32); Bilirubin Total 0.5 mg/dL (0.2-1.0); Glucose Level 105 mg/dL (74-106)
[2021-01-09] MEDS: ACETAMINOPHEN 500 MG TAB PO PRN ×2 (09:00→17:26)
[2021-01-09] MEDS: CIPROFLOXACIN 400mg IV 400 MG/200 ML BAG IV SCH ×2 (12:38)
--- NOTE | 2021-01-09 15:26 | P.PN ---
Subjective Date of Service: 01/09/21 Primary Care Provider: Anatoly Chief Complaint: SBO Status post exploratory laparotomy for SBO, bowel resection and end-to-end anastomosis. NG tube is out Patient states she is feeling better. She reports flatus this morning. She is tolerating clear liquid diet. Left hand was swollen. Swelling suspected to be due to IV iinfiltrate. Per report, the swelling has decreased considerably. Physical Examination - Vital Signs Temperature: 98.2 F Blood Pressure: 147/67 Pulse: 56 Respirations: 16 Pulse Ox (%): 97 Assessment And Plan - Current Problems (Diagnosis) (1) SBO (small bowel obstruction) Current Visit: Yes Status: Acute (2) HTN (hypertension) Current Visit: Yes Status: Acute (3) Hypothyroid Current Visit: Yes Status: Acute (4) Rheumatoid arthritis Current Visit: Yes Status: Acute - Plan Physical examination General: Not in acute distress. Eyes: anicteric sclera. Lungs: Clear to auscultation bilaterally. Adequate breath sounds bilaterally. No rhonchi, no rales no crackles. Heart: Heart sounds 1 and 2 heard and normal, normal rate, irregular rhythm. Abdomen: Soft, nondistended, abdominal binder in place,. Extremities: No pitting edema bilateral lower extremities, no digital cyanosis. Neurology: Oriented x3, no focal motor deficits. Psychiatry: Normal thought content, normal behavior. Skin: Warm and dry. No rashes or ulcers. Assessment: Small-bowel obstruction Rheumatoid arthritis Hypertension Hypothyroidism Plan: Status post exploratory laparotomy, lysis of adhesion, small bowel resection with end-to-end anastomosis. Continue supportive measures-IV hydromorphone p.r.n. for pain. Antiemetics as needed. Patient started on clear liquid diet. Patient advanced to full liquid diet by Dr. Ness today. May discontinue IV D5 NS + KCL depending on amount of oral intake. Monitor and optimize electrolytes. Continue IV antibiotics. General surgery is following. Resume home medications.
[2021-01-09] MEDS: HYDROMORPHONE HCL 1 MG/ML INJ IV PRN (21:01)
[2021-01-10] MEDS: D5NS KCL 20MEQ 20 MEQ/1,000 ML BAG IV SCH
[2021-01-10] MEDS: CIPROFLOXACIN 400mg IV 400 MG/200 ML BAG IV SCH (00:18)
[2021-01-10] MEDS: METRONIDAZOLE 500mg IVPB 500 MG/100 ML BAG IV SCH ×2 (00:20→07:57)
[2021-01-10 01:02] VITALS: BMI 27.3
[2021-01-10] MEDS ORDERED: MELATONIN 5 MG TABLET PO PRN (01:55)
[2021-01-10] MEDS: HYDROMORPHONE HCL 1 MG/ML INJ IV PRN (05:45)
[2021-01-10] MEDS ORDERED: LEVOTHYROXINE SOD 0.1 MG TAB PO SCH (06:00)
[2021-01-10 06:08] LABS: Absolute Lymphocytes (CBC) 1.9 K/uL (0.7-4.9); Basophils % 0.3 % (0-1.3); Hematocrit 30.2 % (36.0-45.0); Lymphocytes % 26.6 % (15.3-44.8); MPV 7.9 fL (7.6-11.3)
[2021-01-10 06:16] VITALS: TEMP 98.1
[2021-01-10 06:23] LABS: BUN Blood Urea Nitrogen 9 mg/dL (7-18); Bicarbonate 24 mmol/L (21-32); Glucose Level 101 mg/dL (74-106); Potassium 3.5 mmol/L (3.5-5.1); Sodium Level 141 mmol/L (136-145)
[2021-01-10] MEDS ORDERED: POTASSIUM 25 MEQ EFFERV TAB PO ONE (06:28)
[2021-01-10 08:58] VITALS: BP 118/63
[2021-01-10] MEDS ORDERED: FOLIC ACID 1 MG TABLET PO SCH (09:00)
[2021-01-10] MEDS ORDERED: ATORVASTATIN 10 MG TAB PO SCH (09:00)
[2021-01-10] MEDS ORDERED: AMLODIPINE 5 MG TAB PO SCH (09:00)
[2021-01-10] MEDS ORDERED: HOME MED 1 EA UNK (Simvastatin [Simvastatin] 10 MG Tablet) PO SCH (09:00)
[2021-01-10] MEDS ORDERED: POTASSIUM CL SA 10 MEQ TAB PO ONE (09:00)
[2021-01-10 09:34] VITALS: O2SAT 100
--- NOTE | 2021-01-10 18:25 | P.DS ---
Admission Date: 01/05/21 Discharge Date: 01/10/21 Primary Care Provider: Anatoly Disposition: ROUTINE DISCHARGE Discharge Condition: GOOD Reason for Admission: SBO Consultations: General surgeryDr. Ness Procedures: CT abdomen/pelvis (01/05): IMPRESSION: Dilated small bowel with two transition points and swirling of the mesentery concerning for a closed loop small bowel obstruction. Ascites is present. Recommend surgical consultation. Small bowel resection 01/[address] Ness Procedures: Exploratory laparotomy, extensive lysis of adhesions, and small bowel resection and anastomosis x2, 2 different sections. Problem list Small-bowel obstruction s/p ex-lap, DEISY, small bowel resection with end-to-end anastomosis Rheumatoid arthritis Hypertension Hypothyroidism Brief History of Present Illness: 50 yo F with HTN and hypothyroidism and history of multiple abdominal surgeries who presents with two weeks of abdominal pain and cramps as well as intractable nausea and vomiting. Her symptoms seemed like they were improving, but they have been worsening since Saturday afternoon. Symptoms worse with eating and drinking, relieved by nothing. She says she has only been able to keep down a few spoonfuls of food. she had a small bowel movement this morning but it had been several days since her last one. She is still able to pass gas. NG tube placed in the ED. Hospital Course: General surgery was consulted, patient was ultimately taken to the OR and required small bowel resection/lysis of adhesions/reanastomosis. She did well postoperatively and without complications. Her diet was advanced and she was ab le to tolerate soft foods, passing flatus, + BM, ambulating, and pain was adequately controlled. She was discharged home to continue ciprofloxacin and pain medication per general surgery. Follow-up with general surgery and 1-2 weeks Follow-up with PCP in 3 to 5 days. Vital Signs/Physical Exam: Temp Pulse Resp BP Pulse Ox 98.1 F 48 L 16 118/63 98 01/10/21 08:00 01/10/21 08:00 01/10/21 08:00 01/10/21 08:00 01/10/21 08:00 General: Alert, In no apparent distress, Oriented x3 HEENT: Sclerae nonicteric Respiratory: Clear to auscultation bilaterally, Normal air movement Cardiovascular: No edema, Regular rate/rhythm Gastrointestinal: Soft and benign, Non-distended, Tenderness (Minimal around surgical incision) Integumentary: Other (Surgical dressing clean/dry/intact) Neurological: Normal speech, Normal affect Laboratory Data at Discharge: WBC 7.30 K/uL (4.3-10.9) 01/10/21 05:40 Hgb 10.2 g/dL (12.0-15.0) L 01/10/21 05:40 Hct 30.2 % (36.0-45.0) L 01/10/21 05:40 Plt Count 137 K/uL (152-406) L 01/10/21 05:40 Sodium 141 mmol/L (136-145) 01/10/21 05:40 Potassium 3.5 mmol/L (3.5-5.1) 01/10/21 05:40 BUN 9 mg/dL (7-18) 01/10/21 05:40 Creatinine 0.71 mg/dL (0.55-1.3) 01/10/21 05:40 Glucose 101 mg/dL (74-106) 01/10/21 05:40 Phosphorus 2.1 mg/dL (2.5-4.9) L 01/08/21 15:29 Magnesium 2.0 mg/dL (1.8-2.4) 01/08/21 15:29 Total Bilirubin 0.5 mg/dL (0.2-1.0) 01/09/21 05:39 AST 10 U/L (15-37) L 01/09/21 05:39 ALT 16 U/L (12-78) 01/09/21 05:39 Alkaline Phosphatase 42 U/L (45-117) L 01/09/21 05:39 Triglycerides 66 mg/dL (<150) 01/06/21 04:29 Cholesterol 198 mg/dL (<200) 01/06/21 04:29 HDL Cholesterol 81 mg/dL (40-60) H 01/06/21 04:29 Cholesterol/HDL Ratio 2.44 01/06/21 04:29 Lipase 76 U/L (73-393) 01/05/21 21:30 Home Medications: Abatacept [Orencia Clickject] 125 mg SQ EVERY 7TH DAY 08/19/20 Amlodipine [Norvasc*] 5 mg PO DAILY 08/19/20 Cyanocobalamin [Vitamin B-12*] 500 mcg PO DAILY 08/19/20 Folic Acid 3 mg PO DAILY 08/19/20 Leflunomide 20 mg PO DAILY 08/19/20 Levothyroxine [Synthroid*] 100 mcg PO [id number] 08/19/20 Simvastatin 10 mg PO DAILY 08/19/20 Vitamin A [Vitamin A*] 4,800 iu PO DAILY 08/19/20 Acetaminophen with Codeine [Acetaminophen-Cod #3 Tablet] 1 tab PO BID PRN 01/06/21 Cholecalciferol (Vitamin D3) [Vitamin D 1000 Iu Tab] 2,000 unit PO DAILY 01/06/21 Methotrexate [Methotrexate*] 3 tab PO EVERY 7TH DAY 01/06/21 Activity: No lifting more than 10 lbs Followup: Kori Lopez NP [Primary Care Provider] - Sina Ness MD [ACTIVE - CAN ADMIT] - 1 Week Time spent managing pt's care (in minutes): 45
== END 2021-01-10 10:38 | disposition home or self-care (01) | DRG 331 ==
LOC: ER 20:42 → ERHOLD 23:20 → 2ND 01-06 00:16
PROVIDERS: ADMIT Internal Medicine; ATTEND Hospitalist
PROC: 0DN80ZZ Release Small Intestine, Open Approach (ICD-10-PCS; 2021-01-06)
PROC: 0DT80ZZ Resection of Small Intestine, Open Approach (ICD-10-PCS; principal; 2021-01-06 12:15)
DX: K56.609 Unspecified intestinal obstruction, unspecified as to partial versus complete obstruction (principal); M19.90 Unspecified osteoarthritis, unspecified site; E78.5 Hyperlipidemia, unspecified; M06.9 Rheumatoid arthritis, unspecified; E03.9 Hypothyroidism, unspecified; I10 Essential (primary) hypertension; Z88.8 Allergy status to other drugs, medicaments and biological substances; Z88.1 Allergy status to other antibiotic agents; Z90.710 Acquired absence of both cervix and uterus; Z79.890 Hormone replacement therapy; Z79.01 Long term (current) use of anticoagulants; Z79.899 Other long term (current) drug therapy; Z86.718 Personal history of other venous thrombosis and embolism; Z20.822 Contact with and (suspected) exposure to COVID-19; Z90.3 Acquired absence of stomach [part of]
CPT/HCPCS: 36415; 74019; 74177; 80048; 80053; 80061; 80076; 82565; 83690; 83735; 84100; 84439; 84443; 85025; 88307; 94010; 94760; 96361; 96365; 96375; 99285; J0360; J0744; J1100; J1170; J2250; J2270; J2405; J2704; J2710; J3010; J3480; J7030; J7120; Q9967; U0003

== ENCOUNTER 2021-02-23 06:01 | Inpatient (IN) | payer OTHER ==
[2021-02-20 09:07] LABS: Absolute Lymphocytes (CBC) 1.7 K/uL (0.7-4.9); Basophils % 0.5 % (0-1.3); Hematocrit 34.8 % (36.0-45.0); Lymphocytes % 47.5 % (15.3-44.8); RBC Red Blood Cell Count 3.79 M/uL (3.86-4.86)
[2021-02-20 09:11] LABS: Protime INR 0.91
[2021-02-20 09:19] LABS: Potassium 4.5 mmol/L (3.5-5.1)
--- NOTE | 2021-02-20 10:17 | RAD REPORT ---
EXAM DESCRIPTION: RAD - Chest Pa And Lat (2 Views) - 02/20/2021 10:11 am CLINICAL HISTORY: PRE OP Chest pain. COMPARISON: Chest Single View dated 08/25/2020; Chest Pa And Lat (2 Views) dated 07/18/2020; Chest Sing le View dated 07/14/2015 FINDINGS: The lungs are mildly hyperexpanded but clear. The heart is upper limit of normal in size. No displaced fractures. IMPRESSION: Mild diffuse COPD. The USPSTF recommends annual screening for lung cancer with low-dose CT (LDCT) in adults aged 50 to 8 0 years who have a 20 pack-year smoking history and currently smoke or have quit within the past 15 y ears.
[2021-02-23] MEDS ORDERED: FENTANYL CITR 100 MCG/2 ML ONE (06:21)
[2021-02-23] MEDS ORDERED: dexAMETHasone 10 MG/ML VIAL ONE ×2 (06:21→07:46)
[2021-02-23] MEDS ORDERED: LIDOCAINE 1% MPF 5 ML VIAL ONE (06:21)
[2021-02-23] MEDS ORDERED: BUPIVACAINE 0.25% PF 10 ML VIAL ONE (06:21)
[2021-02-23] MEDS ORDERED: MIDAZOLAM HCL 2 MG/2 ML INJ ONE (06:21)
[2021-02-23] MEDS ORDERED: BUPIVACAINE 0.5% Inj,MDV 50 mL VIAL ONE ×2 (06:22→07:03)
[2021-02-23] MEDS ORDERED: HYDROMORPHONE HCL 1 MG/ML INJ ONE (06:23)
[2021-02-23 06:27] VITALS: O2SAT 100
[2021-02-23] MEDS ORDERED: SCOPOLAMINE HYDROBROMIDE PATCH TD ONE ×2 (06:30→06:34)
[2021-02-23] MEDS ORDERED: Ringers Lactate 1,000 ML IV ONE ×2 (06:34→10:45)
[2021-02-23] MEDS ORDERED: CEFAZOLIN/SWI 2gm 2 GM/20 ML SYR ONE (06:35)
[2021-02-23] MEDS ORDERED: ONDANSETRON 4 MG/2 ML VIAL ONE ×2 (07:46→11:31)
[2021-02-23] MEDS ORDERED: propofoL 200 MG/20 ML VIAL IV ONE ×3 (07:46→09:05)
[2021-02-23] MEDS ORDERED: LIDOCAINE 2% MPF 5 ML VIAL ONE (07:46)
[2021-02-23] MEDS ORDERED: ROCURONIUM 50 MG/5 ML VIAL IV ONE ×2 (07:46→09:07)
[2021-02-23] MEDS ORDERED: KETAMINE HCL 500 MG/5 ML VIAL ONE (07:47)
[2021-02-23] MEDS ORDERED: TRANEXAMIC ACID 1,000 MG in NA CHLORIDE 0.9% 50 ML IV ONE (08:00)
[2021-02-23] MEDS ORDERED: GLYCOPYRROLATE 0.2 MG/ML SYR ONE (10:45)
[2021-02-23] MEDS ORDERED: NEOSTIGMINE 1 MG/ML -5 ML ONE (10:53)
[2021-02-23] MEDS ORDERED: DIPHENHYDRAMINE 50 MG/ML VIAL ONE (11:18)
--- NOTE | 2021-02-23 11:30 | P.BOP ---
Preoperative diagnosis: left knee osteoarthritis Postoperative diagnosis: same Primary procedure: left total knee arthroplasty Principal Statistical Scientist: NONE,NONE Estimated blood loss: 30 cc Specimen: left knee bone remnants Findings: see dictation Anesthesia: General Complications: None Implants: [employer] Baylee Persona, 9 CR femur, F tibia w/ stem, 32 patella, 10 CR poly Fluids & blood products: per anesthesia record; TT: 91 mins @ 300 mmHg Transferred to: Recovery Room Condition: Good
[2021-02-23] MEDS ORDERED: DOCUSATE NA 100 MG CAP PO PRN (11:34)
[2021-02-23] MEDS: FENTANYL CITR 100 MCG/2 ML ONE ×4 (11:40→12:15)
--- NOTE | 2021-02-23 12:14 | RAD REPORT ---
EXAM DESCRIPTION: RAD - Knee Left 2 View - 02/23/2021 12:02 pm CLINICAL HISTORY: Post Op COMPARISON: Knee Left 2 View dated 04/28/2020 FINDINGS: Status post left total knee arthroplasty. Expected postoperative changes are present. No h ardware complications are identified. No fractures seen. IMPRESSION: Status post left total knee arthroplasty without evidence of immediate hardware complica tions.
[2021-02-23] MEDS: HYDROMORPHONE HCL 1 MG/ML INJ ONE ×2 (12:20→12:35)
[2021-02-23 12:34] LABS: Hematocrit 36.6 % (36.0-45.0)
--- OUTSIDE RECORDS SUMMARY | 2021-02-23 12:57 | XMS REPORT | Continuity of Care Document ---
:1970 Author Organization [facility] t Address [address] [place] [address] Care Team Providers Name Role Phone DESTINY Attending Clinician Unavailable CHASE Attending Clinician Unavailable Problems Condition Condition Condition Status Onset Resolution Last Treating Co mments Source Name Details Category Date Date Treatment Clinician Date Vitamin D Vitamin D Problem Active Uni vers deficiency deficiency [facility] [place] [facility] Elevated Elevated Problem Active Unive rs d-dimer d-dimer [facility] [place] [facility] Leg Leg Problem [...] ans classified classified Allergies, Adverse Reactions, Alerts This patient has no known allergies or adverse reactions. Medications This patient has no known medications. Vital Signs Vital Name Observation Time Observation Value Comments Source Systolic blood 2020-05-25 155 mm[Hg] Location: [facility] 13:07:00 Position: [place] [facility] Sitting Diastolic blood 2020-05-25 82 mm[Hg] Location: [facility] 13:07:00 Position: [place] [facility] Body height 2020-05-25 66 [in_us] [facility] 13:07:00 [place] [facility] Weight 2020-05-25 188 [lb_av] [facility] 13:07:00 [place] [facility] Body mass index 2020-05-25 30.34 kg/m2 [facility] o f (BMI) [Ratio] 13:07:00 [place] [facility] Body temperature 2020-05-25 99.4 [degF] Method: [facility] 13:07:00 Temporal [place] [facility] Heart Rate 2020-05-25 69 /min [facility] 13:07:00 [place] [facility] BP Systolic 2018-12-17 120 mm[Hg] Location: Count includes the [facility] 09:44:00 Position: [place] [facility] S[facility] BP Diastolic 2018-12-17 69 mm[Hg] Location: Count includes the [facility] 09:44:00 Position: [place] [facility] S[facility] Height 2018-12-17 66 [in_us] [facility] 09:44:00 [place] [facility] Weight 2018-12-17 196.6 [lb_av] [facility] 09:44:00 [place] [facility] Body Mass Index 2018-12-17 31.73 kg/m2 [facility] o [facility] Calculated 09:44:00 [place] [facility] Temperature 2018-12-17 97.5 [degF] Method: Oral [facility] 09:44:00 [place] [facility] Heart Rate 2018-12-17 57 /min [facility] 09:44:00 [place] [facility] BP Systolic 2018-05-14 129 mm[Hg] [facility] 12:13:00 [place] [facility] BP Diastolic 2018-05-14 69 mm[Hg] [facility] 12:13:00 [place] [facility] Height 2018-05-14 66 [in_us] [facility] 12:13:00 [place] [facility] Weight 2018-05-14 244 [lb_av] [facility] 12:13:00 [place] [facility] Body Mass Index 2018-05-14 39.38 kg/m2 University o f Calculated 12:13:00 [place] [facility] Temperature 2018-05-14 97.7 [degF] [facility] 12:13:00 [place] [facility] Heart Rate 2018-05-14 54 /min [facility] 12:13:00 [place] [facility] Procedures Procedure Date / Time Performing Clinician Source Performed [Q] COMPREHENSIVE 2020-05-25 00:00:00 [facility] METABOLIC PANEL W/eGFR Physician s (REFL) [Q] QUESTASSURED 25-OH 2020-05-25 00:00:00 Unive [facility] VIT D, (D2,D3), LC/MS/MS Physici ans [QL] CBC (INCLUDES 2020-05-25 00:00:00 [facility] DIFF/PLT) Physicians [QL] FOLATE, SERUM 2020-05-25 00:00:00 [facility] Physicians [QL] HEMOGLOBIN A1c 2020-05-25 00:00:00 [facility] Physicians [QL] IRON AND TOTAL IRON 2020-05-25 00:00:00 Uni [facility] BINDING CAPACITY Physicians [QL] LIPID PANEL 2020-05-25 00:00:00 [facility] Physicians [QL] PTH, INTACT 2020-05-25 00:00:00 [facility] (WITHOUT CALCIUM) Physicians [QL] TSH, 3RD GENERATION 2020-05-25 00:00:00 Uni [facility] W/REFLEX TO FT4 Physicians [QL] VITAMIN A (RETINOL) 2020-05-25 00:00:00 Uni [facility] Physicians [QL] VITAMIN B1, WHOLE 2020-05-25 00:00:00 Unive [facility] BLOOD Physicians [QL] VITAMIN B12 2020-05-25 00:00:00 [facility] Physicians [QL] VITAMIN E 2020-05-25 00:00:00 [facility] (TOCOPHEROL) Physicians MA Bone Density DXA Dual 2018-12-17 00:00:00 [facility] [employer] [id number] Physicians [QLH] VITAMIN B1, WHOLE 2018-07-14 00:00:00 Univ [facility] BLOOD Physicians US Extremity lower 2017-11-19 00:00:00 [facility] venous doppler bilat Physicians [id number] Encounters Start End Encounter Admission Attending Care Care Encounter Source Date/Time Date/Time Type Type Clinicians Facility Department ID 2020-05-25 2020-05-25 Appointmen DARIUSZ DIXON [facility] [id number] Univers 12:45:00 12:45:00 t; ANNA DIXON M.D. Invasive ity migue CASTILLO M.D. [facility] ([facility]) ans 2019-06-24 2019-06-24 Appointmen DARIUSZ DIXON [id number] Univers 10:15:00 10:15:00 t; ANNA DIXON M.D. ity of [place], M.D. [place] [facility] 2018-12-17 2018-12-17 Appointmen DARIUSZ DIXON [facility] [id number] Univers 09:00:00 09:00:00 t; ANNA DIXON M.D. Invasive ity of Nick CASTILLO [facility] ([facility]) ans 2018-12-03 2018-12-03 Appointmen DESTINYDARIUSZ [facility] [id number] Univers 10:15:00 10:15:00 t; ANNA DIXON M.D. ity of Nick CASTILLO [place] [facility] 2018-09-03 2018-09-03 Appointmen DESTINYDARIUSZ [facility] [id number] Univers 09:15:00 09:15:00 t; ANNA DIXON M.D. ity of Nick CASTILLO [place] [facility] ans 2018-05-14 2018-05-14 AppointDARIUSZ [place] [id number] Univers 10:15:00 10:15:00 t; ANNA DIXON M.D. Surgery ity of Nick CASTILLO [facility] as Physici ans 2018-02-26 2018-02-26 Appointmen DARIUSZ DIXON [facility] [id number] Univers 10:45:00 10:45:00 t; ANNA DIXON M.D. ity of Nick [place]ST[place]O [place] [facility] 2018-01-15 2018-01-15 AppointDARIUSZ Frost UTP [id number] Univers 13:00:00 13:00:00 t; ANNA DIXON M.D. ity of Nick [place]ST[place]O [place] [facility] 2017-12-11 2017-12-11 Appointmen DARIUSZ DIXON [facility] [id number] Univers 10:45:00 10:45:00 t; ANNA DIXON M.D. ity of Nick [place]ST[place]O [place] [facility] 2017-11-13 2017-11-13 Appointmen DARIUSZ DIXON UTP [id number] Univers 09:15:00 09:15:00 t; ANNA DIXON M.D. ity of Nick CASTILLO [place] [facility] 2017-09-11 2017-09-[facility] [id number] Univers 09:30:00 09:30:00 t; GRECIA Jaime ity of [address] [facility] Physi ci RD ans 2017-07-31 2017-07-31 Appointmen DARIUSZ DIXON UTP [id number] Univers 10:45:00 10:45:00 t; ANNA DIXON M.D. ity of [place], M.D. [facility] ans 2017-02-04 2017-02-04 Appointmen BURTON-BRUCE UTP UTP [id number] Univers 09:00:00 09:00:00 t; GRECIA Jaime, ity of [address] [facility] Physi ci RD ans 2017-01-02 2017-01-02 Appointmen GINNY UTP UTP [id number] Univers 13:30:00 13:30:00 t; GRECIA Jaime itshikha of [address] [facility] ci RD ans 2017-01-02 2017-01-02 Appointmen DARIUSZ DIXON UTP [id number] Univers 11:15:00 11:15:00 t; ANNA DIXON M.D. ity of [place], M.D. [facility] ans 2016-12-03 2016-12-03 [facility] DARIUSZ UTP [id number] Univers 09:00:00 09:00:00 t; GRECIA Jaime ity of [address] [facility] ci RD ans 2016-10-31 2016-10-31 Appointmen DARIUSZ DIXON UTP [id number] Univers 13:15:00 13:15:00 t; ANNA DIXON M.D. ity of [place], M.D. [facility] Results Test Description Test Time Test Comments Results Result Comments Source [QL] LIPID PANEL 2020-05-25 14:17:00 Test Item Value Reference Range Interpretation Comme nts CHOLESTEROL, TOTAL; Above 249 mg/dl <200 High Threshold (test code = 2093-3) HDL CHOLESTEROL; Normal 79 mg/dl See_Comment N [Au tomated message] The (test code = 2085-9) system which generated this result tra nsmitted reference range : > OR = 50. The referen ce range was not used to interpret this result as normal/abnormal . TRIGLYCERIDES; Normal (test 82 mg/dl <150 N code = 2571-8) LDL-CHOLESTEROL; Above High 151 {MG/DL SYEDA} Reference range: <100 Threshold (test code = Dahlia able range <100 mg/dL 61446-4) for primary pre vention; <70 mg/dL for p atients with CHD or amada betic patients with > or = 2 CHD risk factors. L DL-C is now calculated usin g the Henagar-Beaumont calculation, ich is a validated novel method providing florence r accuracy than the Friede jayden equation in the estimation of LDL-C. Rylee n SS et al. ARLENE. 2013;310( 19): 0825-9751 (http://educati onFour Eyes Club/fa q/XYQ152) CHOL/HDLC RATIO (test code = 3.2 {CALC} <5.0 N CHOL/HDLC RATIO) NON HDL CHOLESTEROL (test 170 {MG/DL SYEDA} <130 For patients with diabetes code = NON HDL CHOLESTEROL) plus 1 major ASCVD risk factor, treatin g to a non-HDL-C goal of <100 mg/dL (LDL-C of <70 mg/dL) is considered a therapeutic opt ion. [facility] Physicians[Q] COMPREHENSIVE METABOLIC PANEL W/eGFR (REFL) 2020-05-25 [...] NON-AFR. 77 {ML/MIN/1.7} See_Comment N [Automated message] EQUATORIAL GUINEAN (test The system ich code = eGFR generated this result NON-AFR. transmitted ref erence EQUATORIAL GUINEAN) range: > OR = 6 0. The reference range was not used to int erpret this result as normal/abnormal . eGFR 89 {ML/MIN/1.7} See_Comment N [Automated message] EQUATORIAL GUINEAN (test The system ich code = [...] mg/dl 0.2-1.2 N Normal (test code = 02937-9) ALKALINE 72 u/l 37-153 N PHOSPHATASE (test code = ALKALINE PHOSPHATASE) AST; Normal (test 30 u/l 10-35 N code = 1916-6) ALT; Above High 33 u/l 6-29 Threshold (test code = 1742-6) [facility] Physicians[QL] IRON AND TOTAL IRON BINDING CAPACITY 2020-05-25 14:17:00 Test Item Value Reference Range Interpretation Comments IRON, TOTAL (test code = 86 {mcg/dl} 45-160 N IRON, TOTAL) IRON BINDING CAPACITY (test 354 {mcg/dL ca} 250-450 N code = IRON BINDING CAPACITY) % SATURATION (test code = % 24 {% CALC} 16-45 N SATURATION) [facility][QL] CBC (INCLUDES DIFF/PLT)2020-05-25 14:17:00 Test Item Value Reference Range Interpretation Comments WHITE BLOOD CELL COUNT 3.8 {Thousand/u} 3.8-10.8 N (test code = WHITE BLOOD CELL COUNT) RED BLOOD CELL COUNT (test 3.74 {Million/uL} 3.80-5.10 code = RED BLOOD CELL COUNT) HEMOGLOBIN; Below Low 11.6 g/dl 11.7-15.5 Threshold (test code = 80955-8) HEMATOCRIT; Normal (test 35.7 % 35.0-45.0 N code = 4544-3) MCV; Normal (test code = 95.5 fL 80.0-100.0 N 787-2) MCHC; Normal (test code = 32.5 g/dl 32.0-36.0 N 64013-4) RDW; Normal (test code = 13.2 % 11.0-15.0 N 788-0) PLATELET COUNT; Normal 251 {Thousand/u} 140-400 N (test code = 777-3) MPV; Normal (test code = 11.4 fL 7.5-12.5 N 10163-9) ABSOLUTE NEUTROPHILS (test 1474 {cells/uL} 3009-0135 code = ABSOLUTE NEUTROPHILS) ABSOLUTE LYMPHOCYTES (test [...] Normal (test 8.2 % N code = 05355-8) EOSINOPHILS; Normal (test 0.5 % N code = 30264-2) BASOPHILS; Normal (test 0.5 % N code = 05393-3) [facility] Phys[facility][QL] PTH, INTACT (WITHOUT CALCIUM)2020-05-25 14:17:00 Test [...] roid Hypercalcemia Low or Low Normal High [facility][QL] VITAMIN E (TOCOPHEROL)2020-05-25 14:17:00 Test Item [...] perf ormance characteristics have been determined by [employer]. It has not been cleared or approved by theFDA. This as say has been validated pursu ant to the CLIA regulation s and is used for clinic al purposes. ICVB-[id number] <1.0 <4.4 This test was developed and PRANEETH (test code = its analyt ical performance [id number]-[id number] characteri stics have been PRANEETH) determined by [employer]. It has not been cleared or approved [...] analytical performance characteristics have been determined by [employer]. It has not been cleared or approved by theFDA. This assay has been validated pursuant to the CLIA regulations and is used for clinical purposes.[facility][QL] FOLATE, [id number] 14:17:00 Test Item Value Reference Range Interpretation Comments FOLATE, SERUM (test >24.0 N Referenc e Range code = FOLATE, SERUM) Low: <3.4 Borderli ne: 3.4-5.4 Normal: >5.4 [facility][QL] VITAMIN [id number] 14:17:00 Test Item Value Reference Range Interpretation Comments VITAMIN B12 (test code = VITAMIN 1424 pg/ml 200-1100 B12) [facility][] TSH, 3RD GENERATION W/REFLEX TO [id number] 14:17:00 Test Item Value Reference Range Interpretation Comments TSH, 3RD GENERATION 0.56 {MIU/L} N Referenc e Range W/REFLEX TO FT4 (test > or code = TSH, 3RD = 20 Years GENERATION W/REFLEX 0.40-4.5 0 TO FT4) Range s First trim manuel 0.26-2.66 Second trimest er 0.55-2.73 Third trimester 0.43-2.91 [facility][QL] VITAMIN B1, WHOLE [id number] 14:17:00 Test Item Value Reference Range Interpretation Comments VITAMIN B1, WHOLE 127 nmol/L 78-185 Vitamin isaac pplementation BLOOD (test code = within 24 hours prior VITAMIN B1, WHOLE toblood dr [place] may affect BLOOD) the accuracy of results. This test was developed and its analyti syeda performance characteristics have been determined by [facility]. It has not been cleared or approved by theA. This assay has been validated pursuant to the CLIA reg ulations and is used for clinical purposes. [facility][QL] HEMOGLOBIN [id number] 14:17:00 Test Item Value Reference Range Interpretation [...] di abetes in children. Ac cording to [place] Amada betes Association (ADA)guidelines , hemoglobin A1c <7.0% represents optimalcontrol in non- di abetic patients. Differentmetric s may apply to specif ic patient populat ions. Standards of Ne dical Care in Diabete s(ADA). [facility][QL] VITAMIN A (RETINOL)2020-05-25 14:17:00 Test Item Value Reference Range Interpretation Comments VITAMIN A (test 71 {mcg/dl} 38-98 Clin Chem Vol. 34.No.8. code = VITAMIN A) [id number] 8. 1997Vitamin supplementation within 24 hours prior to blood draw may affect the accuracy of results. T his test was developed a nd its analytical perf ormance characteristics have been determined by [facility]. It has not been cleared or approved by theA. This assay has been validated pursuant to the CLIA reg ulations and is used for clinical purposes. REPORT COMMENT:FASTING:[facility]Un[facility][Q] QUESTASSURED 25- [place] VIT D, (D2,D3), LC/MS/[id number] 14:17:00 Test Item Value Reference Range Interpretation Comments VITAMIN D, <4.0 ng/ml 30-100 (Note)Reference range: Not 25-OH, D2 established Thi s test was (test code = developed and i ts analytical VITAMIN D, performancechar acteristics have 25-OH, D2) been determined by [employer]. It has not been cleared or approved by the US Food and Drug Administra tion. Thisassay has been valida radha pursuant to the CLIA regula tion and is usedfor Clinica l purposes.[facility] [id number] [facility] [address] [id number] 00MicAubrey Mora ote 1 Note 1 For additional info rmation, please refer to http://educatio n.[employer].com/faq/FAQ1 99 (This link is being provided for informational/e ducational purposes only.) VITAMIN D, 65 ng/ml Reference range : Not 25-OH, D3 established (test code = VITAMIN D, 25-OH, D3) Reference range: Not establishedREPORT COMMENT:FASTING:UNKNOWNUnMountainStar Healthcare Physicians
[2021-02-23] MEDS ORDERED: MORPHINE 2 MG/ML SYR IV PRN (13:03)
[2021-02-23 14:43] VITALS: BMI 27.9
[2021-02-23] MEDS: HYDROCODONE/APAP 7.5/325 MG TAB PO PRN ×3 (15:33→22:45)
[2021-02-23] MEDS: ONDANSETRON 4 MG/2 ML VIAL IV PRN ×2 (15:33→20:53)
[2021-02-23] MEDS: CEFAZOLIN 2 GM in NA CHLORIDE 0.9% 100 ML IVPB SCH (17:16)
--- NOTE | 2021-02-23 20:16 | P.OP ---
Preoperative diagnosis: left knee osteoarthritis Postoperative diagnosis: same Primary procedure: left total knee arthroplasty Anesthesia: general Estimated blood loss: 30 cc Specimen: left knee bone remnants Findings: see dictation Operative Technique: Indication For Procedure: Mahsa is an 50 year-old female presenting to my clinic with signs, symptoms and x-ray findings consistent with a severe left knee osteoarthritis. I discussed with the patient at length risks and benefits associated with operative and nonoperative treatment. She had failed conservative treatment measures and had significant difficulties with ADLs secondary to her pain. We discussed operative treatment and elected to proceed with left total knee arthroplasty. She expressed understanding and elected to proceed with operative treatment. Description Of Procedure: After informed consent was obtained, the patient was identified in the preoperative holding area. The left lower extremity was marked. The patient was then taken to the PACU where he underwent a left lower extremity adductor canal block performed by Anesthesia. She was then taken to the operating room, transferred to the operating table in supine fashion, and placed under general anesthesia. Her left lower extremity was then prepped and draped in usual sterile fashion. A time-out was initiated. The correct patient and procedure were confirmed and identified. The patient did receive her preoperative prophylactic antibiotics. The left lower extremity was then exsanguinated and tourniquet was inflated to 300 mmHg. Approximately 20 cm longitudinal incision was made centered over the anterior aspect of the left knee. Dissection was then taken to the extensor mechanism and a medial parapatellar arthrotomy was performed. The patella was everted and dislocated laterally and the knee was flexed in the fat pad. There were multiple osteophytes and heterotopic bone superior to the patella that were removed. Medial lateral meniscus and ACL were all excised exposing the distal femur. Excess hypertrophic synovium was also excised within the suprapatellar pouch. The patient had an MRI of the left knee preoperatively for surgical planning and creation of cutting blocks. The cutting block was then placed over the distal femur and pins were then placed. The distal femoral cutting block was then placed over the pins. Knee joint was then used to ensure proper depth cut and the distal femur was then cut. The chamfer cutting guide was then placed over the distal end of the femur. Anterior, posterior cuts as well as anterior and posterior chamfer cuts were then made again confirming proper depth of the cut using an Otis wing. Excess bone remnants were then sent to pathology for further evaluation. Next, attention was taken to the proximal tibia. A tibial jig and tibial cutting block was then placed on proximal aspect of the right tibia and locked into position. Pins were then placed and alignment guide was then used to confirm proper alignment of the cut and then coronal and sagittal planes. Once this was confirmed, the cutting jig was placed over the pins and the proximal tibia was cut. Sizing trays were then selected and size 10 mm spacer was used and there was good overall balance in flexion and extension. Next, the trial implants were then placed using the size 8 standard CR femur and a size F tibia with a stem with a 10 mm poly. There was overall good range of motion and good stability Trial implants were then removed. The wound was then irrigated thoroughly with normal saline and the knee was then injected with 30 cc of 0.5% Marcaine both in the posterior capsule and mediallateral gutters as well as quadriceps tendon and periosteum. The tibia was then punched. The femur was drilled. The cement was then prepared on the back table. Cement was then placed first on the tibial surface followed by size F tibia. Excess cement was removed with Oakwood elevators. Size 8 standard CR femur was then placed on the distal femur after cement was placed on the distal femur. Excess cement was then removed and a size 10 mm trial poly was then placed. The knee was held in extension as the cement hardened. Undersurface of the patella was prepared debriding osteophytes using rongeurs.. Cement was placed on the undersurface of the patella after it was cut and a size 32 patella was placed. Once the cement was hardened, the knee was ranged, there was good overall stability both in flexion, extension and as well as stability with varus and valgus stresses. Trial poly was then removed and a size 10 mm CR poly was then placed and locked into position. The knee was then ranged again. There was good overall range of motion both for flexion and extension with good stability. The wound was then irrigated again thoroughly with normal saline using pulse lavage. Tourniquet was let down. Hemostasis was achieved using Bovie electrocautery. Extensor mechanism was then approximated using a #1 Vicryl bothin interrupted and running fashion. The fascia was then approximated using 0 Vicryl. Subcutaneous tissue was approximated with a 2-0 Vicryl. Skin was approximated using henry. Sterile dressings were applied. The patient was awakened and transferred back in stable condition Complications: None Implants: [employer] Person[employer] 8 STD CR femur, F tibia w/stem, 32 patella, 10 CR poly Fluids & blood products: per anesthesia record; TT: 91 mins @ 300 mmHg Transferred to: Recovery Room Condition: Good
[2021-02-23] MEDS: TRAMADOL HCL 50 MG TAB PO SCH (20:52)
[2021-02-23] MEDS ORDERED: ATORVASTATIN 10 MG TAB PO SCH (21:00)
[2021-02-24] MEDS: CEFAZOLIN 2 GM in NA CHLORIDE 0.9% 100 ML IVPB SCH ×2 (00:23→09:00)
[2021-02-24] MEDS: HYDROCODONE/APAP 7.5/325 MG TAB PO PRN ×3 (02:44→13:28)
[2021-02-24] MEDS ORDERED: LEVOTHYROXINE SOD 0.1 MG TAB PO SCH (06:00)
[2021-02-24] MEDS: ENOXAPARIN 30 MG/0.3 ML SQ SCH ×2 (06:13→09:00)
[2021-02-24] MEDS: ONDANSETRON 4 MG/2 ML VIAL IV PRN (06:14)
[2021-02-24] MEDS ORDERED: NA CHLORIDE 0.9% 100 ML ONE (08:57)
[2021-02-24] MEDS ORDERED: AMLODIPINE 5 MG TAB PO SCH (09:00)
[2021-02-24] MEDS ORDERED: VITAMIN A PO SCH (09:00)
[2021-02-24] MEDS ORDERED: HOME MED 1 EA UNK (Simvastatin [Simvastatin] 10 MG Tablet) PO SCH (09:00)
[2021-02-24] MEDS ORDERED: CALCIUM CARBONATE 500 MG TAB PO SCH (09:00)
[2021-02-24] MEDS ORDERED: HOME MED 1 EA UNK (Calcium Carbonate [Calcium] 600 MG Tablet) PO SCH (09:00)
[2021-02-24] MEDS ORDERED: Plecanatide [Trulance] 3 MG Tablet PO SCH (09:00)
[2021-02-24] MEDS ORDERED: FOLIC ACID 1 MG TABLET PO SCH (09:00)
[2021-02-24] MEDS ORDERED: CYANOCOBALAMIN 1,000 MCG TAB PO SCH (09:00)
[2021-02-24] MEDS ORDERED: CEFAZOLIN SODIUM 1 GM/VIAL ONE (09:16)
--- NOTE | 2021-02-24 10:08 | P.DS ---
Admission Date: 02/23/21 Discharge Date: 02/24/21 Disposition: DC HOME/HOME HEALTH CARE Discharge Condition: GOOD Reason for Admission: s/p L TKA Consultations: None Procedures: left total knee arthroplasty 02/23/2021 Brief History of Present Illness: Mahsa is a 50-year-old female underwent left total knee arthroplasty on February 23, 2021 without complication. Hospital Course: The patient was admitted to floor postoperatively for monitoring, pain control and physical therapy. The patient's vitals were stable while on the floor. She mobilized well with physical therapy and ambulated. You she was discharged on February 24, 2021 in stable condition. She will take Xarelto once discharged once a day for DVT prophylaxis. She will follow up in my clinic in 2 weeks for staple removal. Vital Signs/Physical Exam: Temp Pulse Resp BP Pulse Ox 98.4 F 76 16 138/76 98 02/24/21 08:00 02/24/21 09:01 02/24/21 08:00 02/24/21 09:01 02/24/21 08:00 Laboratory Data at Discharge: WBC 3.60 K/uL (4.3-10.9) L 02/20/21 08:50 Hgb 10.0 g/dL (12.0-15.0) L 02/24/21 06:24 Hct 31.0 % (36.0-45.0) L D 02/24/21 06:24 Plt Count 218 K/uL (152-406) 02/20/21 08:50 PT 10.5 SECONDS (9.5-12.5) 02/20/21 08:50 INR 0.91 02/20/21 08:50 APTT 33.8 SECONDS (24.3-36.9) 02/20/21 08:50 Sodium 143 mmol/L (136-145) 02/20/21 08:50 Potassium 4.5 mmol/L (3.5-5.1) 02/20/21 08:50 BUN 11 mg/dL (7-18) 02/20/21 08:50 Creatinine 0.93 mg/dL (0.55-1.3) 02/20/21 08:50 Glucose 84 mg/dL (74-106) 02/20/21 08:50 Home Medications: Amlodipine [Norvasc*] 5 mg PO DAILY 08/19/20 Cyanocobalamin [Vitamin B-12*] 1,000 mcg PO DAILY 08/19/20 Folic Acid 3 mg PO DAILY 08/19/20 Levothyroxine [Synthroid*] 100 mcg PO [id number] 08/19/20 Simvastatin 10 mg PO DAILY 08/19/20 Vitamin A [Vitamin A*] 4,800 iu PO DAILY 08/19/20 Calcium Carbonate [Calcium] 1,200 mg PO DAILY 02/20/21 Cholecalciferol (Vitamin D3) [Vitamin D3] 25,000 unit PO EVERY 7TH DAY 02/20/21 Plecanatide [Trulance] 3 mg PO DAILY 02/20/21 Tramadol HCl [Ultram] 50 mg PO BID 02/20/21 Hydrocodone 7.5/APAP 325 [[place] 7.5/325 mg*] 1 tab PO Q4H PRN tab 02/24/21 Methotrexate [Methotrexate*] 2.5 mg PO EVERY 7TH DAY tab 02/24/21 Physician Discharge Instructions: keep dressing clean and dry. begin xarelto tomorrow, Sunday 02/25, with breakfast and take one daily. use LYDIA hose x 2 weeks Diet: Regular Activity: Weight bearing as tolerated Followup: Varinder Khoury MD [Primary Care Provider] - 1-2 Weeks
[2021-02-24] MEDS: TRAMADOL HCL 50 MG TAB PO SCH (11:05)
[2021-02-24 12:22] VITALS: BP 144/83; TEMP 98.2
[2021-02-26] MEDS ORDERED: VITAMIN D 5,000 UNIT CAP PO SCH (09:00)
[2021-03-02] MEDS ORDERED: METHOTREXATE 2.5 MG TAB PO SCH (09:00)
== END 2021-02-24 02:20 | disposition home health service (06) | DRG 470 ==
LOC: OR 06:01 → 2ND 12:54
PROVIDERS: ADMIT Orthopaedic Surgery Sports Medicine; ATTEND Orthopaedic Surgery Sports Medicine
PROC: 0SRD0J9 Replacement of Left Knee Joint with Synthetic Substitute, Cemented, Open Approach (ICD-10-PCS; principal; 2021-02-23 07:30)
DX: M17.12 Unilateral primary osteoarthritis, left knee (principal); I10 Essential (primary) hypertension; E03.9 Hypothyroidism, unspecified; Z79.890 Hormone replacement therapy; Z79.01 Long term (current) use of anticoagulants; Z79.899 Other long term (current) drug therapy; Z90.710 Acquired absence of both cervix and uterus; Z20.822 Contact with and (suspected) exposure to COVID-19
CPT/HCPCS: 36415; 71046; 80048; 85014; 85018; 85025; 85610; 85730; 88304; 88305; 88311; 93005; 94010; 97110; 97116; 97139; 97161; J0690; J1100; J1170; J1200; J1650; J2250; J2270; J2405; J2704; J2710; J3010; J7120; U0002

== ENCOUNTER 2022-07-16 16:42 | Emergency (ER) | payer BC, OTHER, SELFPAY ==
--- OUTSIDE RECORDS SUMMARY | 2022-07-16 16:47 | XMS REPORT | Continuity of Care Document ---
:1970 Author Organization [facility] t Address [address] [facility] [address] [place] [address] Care Team Providers Name Role Phone Danny Madison Primary Care Physician ANNA FITZGERALD Attending Clinician Unavailable DEONNA FITZGERALD Attending Clinician Unavailable DARREL KOCH Attending Clinician Unavailable DARREL KOCH Attending Clinician Unavailable Maribell Anne Attending Clinician ANNA FITZGERALD M.D. Attending Clinician Unavailable GRECIA STONE RD Attending Clinician Unavailable DARREL KOCH Admitting Clinician Unavailable Payers Payer Name Policy Type Policy Number Effective Date Expiration Date S ource [place] [id number] 2021 2022 00:00:0 0 OUT OF STATE 00:00:00 OPEN ACCESS [id number] 2020 2021 00:00:00 [employer]ET[employer] SELECT 00:00:00 EPO Problems Condition Condition Condition Status Onset Resolution Last Treating Co mments Source Name Details Category Date Date Treatment Clinician Date Syncope, Syncope, Disease Active 2021-03 Unive rs unspecifie unspecifie 2-19 it y of d syncope d [place] type [place] Systemic Systemic Disease Active [facility] lupus lupus 427 Health erythemato erythemato 00:00: yaneli, yaneli, 00 unspecifie unspecifie d d SBO (small SBO (small Disease Active U T bowel bowel 07-12 Health obstructio obstructio 00:00: n) n) 00 Rheumatoid Rheumatoid Disease Active U T arthritis arthritis 07-12 Heal th 00:00: 00 Other Other Disease Active UT polyosteoa polyosteoa 07-12 He alth rthritis rthritis 00:00: 00 Vitamin D Vitamin D Disease Active [facility] deficiency deficiency 3-10 He alth 00:00: 00 Vitamin D Vitamin D Problem Active [facility] deficiency deficiency Ph ysici ans Leg Leg Problem Active [facility] swelling swelling Physic i ans DVT, DVT, Problem Active [facility] bilateral bilateral Phys ici lower lower ans limbs limbs Malabsorpt Malabsorpt Problem Active U T ion ion Physici ans Malnutriti Malnutriti Problem Active U T on on Physici ans Osteoporos Osteoporos Problem Active U T is is Physici ans Malabsorpt Malabsorpt Problem Active U T ion due to ion due to Ph ysici intoleranc intoleranc an s e, not e, not elsewhere elsewhere classified classified Fatigue, Fatigue, Problem Active 2021-09-29 Memoria unspecifie unspecifie 02:45:22 l d type d type Jas Active Problem 09/29/2021 [facility] Other Other Problem Active 2021-09-29 Memor ia specified specified 02:45:22 l abnormal abnormal Eb n findings findings of blood of blood chemistry chemistry Active Problem 09/29/2021 [facility] Encounter Encounter Problem Active 2021-09-29 Memoria for for 02:45:22 l long-term long-term Herm sue (current) (current) use of use of other other medication medication s s Active Problem 09/29/2021 [facility] Inflammato Inflammat Problem Active 2021-09-29 Memoria ry ory 02:45:22 l polyarthro polyarthro He rmann noé noé Active Problem 09/29/2021 [facility] Raised Raised Problem Active 2021-09-29 Carmelo loulou antibody antibody 02:45:22 l titer titer Jas Active Problem 09/29/2021 [facility] Pain in Pain in Problem Active 2021-09-29 Me moria right knee right knee 02:45:22 l Active Jas Problem 09/29/2021 [facility] Drug or Drug or Problem Active 2021-09-29 Il moria medicinal medicinal 02:45:22 l substance substance Herm sue causing causing adverse adverse effect in effect in therapeuti therapeuti c use, c use, initial initial encounter encounter Active Problem 09/29/2021 [facility] Rheumatoid Rheumatoi Problem Active 2021-09-29 Memoria arthritis d 02:45:22 l of arthritis [place] multiple of sites with multiple involvemen sites with t of other involvemen organs and t of other systems organs and systems Active Problem 09/29/2021 [facility] Pain in Pain in Diagnosis Active 2018-10-18 Memoria left knee left knee 02:45:36 l Active [place] Diagnosis 10/18/2018 [facility] Iritis Iritis Diagnosis Active 2021-09-12 Il moria Active 02:45:16 l Diagnosis [place] 09/12/2021 [facility] Renal Renal Diagnosis Active 2020-03-18 Mem oria insufficie insufficie 03:45:36 l ncy ncy Active Eb n Diagnosis 03/18/2020 [facility] Constipati Constipat Problem Active 2021-09-29 Memoria on ion Active 02:45:22 l Problem [place] 09/29/2021 [facility] Anemia Anemia Diagnosis Active 2020-12-16 M emoria Active 02:45:21 l Diagnosis Jas 12/16/2020 [facility] Other Other Diagnosis Active 2019-11-26 Mem oria specified specified 02:45:15 l counseling counseling He rmann Active Diagnosis 11/26/2019 [facility] 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 He rmann s exposure s exposure Active Diagnosis 10/07/2019 [facility] Screening Screening Diagnosis Active 2020-09-15 Memoria for for 02:45:15 l tuberculos tuberculos He rmann is is Active Diagnosis 09/15/2020 [facility] Osteoarthr Osteoarth Problem Active 2021-09-29 Memoria itis of ritis of 02:45:22 l multiple multiple Eb n joints, joints, unspecifie unspecifie d d osteoarthr osteoarthr itis type itis type Active Problem 09/29/2021 [facility] Pain in Pain in Problem Active 2021-09-29 Me moria joint, joint, 02:45:22 l multiple multiple Eb n sites sites Active Problem 09/29/2021 [facility] Osteoarthr Osteoarth Problem Active 2021-09-29 Memoria osis rosis 02:45:22 l involving involving Herm sue multiple multiple sites but sites but not not designated designated as as generalize generalize d d Active Problem 09/29/2021 [facility] 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 rmann tissue tissue disease) disease) Active Problem 09/29/2021 [facility] Seronegati Problem Active 2021-09-29 M emoria ve Seronegati 02:45:22 l rheumatoid ve Eb n arthritis rheumatoid of left arthritis knee of left knee Active Problem 09/29/2021 [facility] Elevated Elevated Problem Active 2021-09-29 Memoria sed rate sed rate 02:45:22 l Active [place] Problem 09/29/2021 [facility] Seronegati Seronegat Problem Active 2021-09-29 Memoria ve pepe 02:45:22 l rheumatoid rheumatoid He rmann arthritis arthritis of right of right knee knee Active Problem 09/29/2021 [facility] Allergies, Adverse Reactions, Alerts Allergy Allergy Status Severity Reaction(s) Onset Inactive Treating Comm ents Source Name Type Date Date Clinician Nsaids Propensi Active Anaphylaxis 2021-03 Uni vers (Non-Shahzad ty to 2-19 ity of roidal adverse 00:00: [place] Anti-Inf reaction 00 Medica l lammator s Branch y Drug) NSAIDS Drug Active Anaphylaxis 2021-03 Unive rs (NON-SHAHZAD Class 2-19 ity of ROIDAL 00:00: [place] ANTI-INF 00 Medical LAMMATOR Branch Y DRUG) NSAID NSAID Active KIDNEY Memoria FAILURE 6-27 l 00:00: [place] 00 Naproxen Allergy Active per pt [place] to 27 kidney Health substan 00:00: failure e 00 N.K.D.A. N.K.D.A. Active Info Not Carmelo loulou Available 3-25 l 00:00: Jas 00 NO KNOWN Drug Active Univers ALLERGIE Class ity of S [place] [facility] Social History Social Habit Start Date Stop Date Quantity Comments Source History SDOH Social Unive rsity of Connections Get [place] Med ical Together Branch History SDOH Social Unive rsity of Connections Yarsanism [place] [facility] History SDOH Social Unive rsity of Connections [place] [facility] Membership Branch History SDOH Social Unive rsity of Connections [place] [facility] Meetings Branch History SDOH 2022-03-06 2022-03-06 1 University o f Alcohol Frequency 00:00:00 00:00:00 [place] M edical Branch History SDOH 2022-03-06 2022-03-06 0 University o f Alcohol Std Drinks 00:00:00 00:00:00 [place] [facility] History SDOH 2022-03-06 2022-03-06 1 University o f Alcohol Binge 00:00:00 00:00:00 [place] Medic al Branch History SDOH Social 2022-03-06 2022-03-06 5 Unive rsity of Connections Phone 00:00:00 00:00:00 [place] M edical Branch History SDOH Social 2022-03-06 2022-03-06 5 Unive rsity of Connections Living 00:00:00 00:00:00 [place] [facility] History SDOH 2022-03-06 2022-03-06 6 University o f Physical Activity 00:00:00 00:00:00 [place] M edical DPW Branch History SDOH 2022-03-06 2022-03-06 8 University o f Physical Activity 00:00:00 00:00:00 [place] M edical MPS Branch History SDOH 2022-03-06 2022-03-06 2 University o f Financial 00:00:00 00:00:00 [place] [facility] History SDOH Food 2022-03-06 2022-03-06 1 Univers ity of Worry 00:00:00 00:00:00 [place] [facility] History SDOH Food 2022-03-06 2022-03-06 1 Univers ity of Scarcity 00:00:00 00:00:00 [place] [facility] History SDOH 2022-03-06 2022-03-06 2 University o f Transport Med 00:00:00 00:00:00 [place] Medic al Branch History SDOH 2022-03-06 2022-03-06 2 [place] o f Transport Non-Med 00:00[facility] to 2022-02-23 2022-03-05 Not sure [facility] SARS-CoV-2 (event) 00:00:00 17:51:00 [facility] Tobacco use and 2021-07-12 2021-07-12 Smokeless [place] [facility] exposure 00:00:00 00:00:00 tobacco non-user Alcohol intake 2021-07-12 2021-07-12 Ex-drinker [place] [facility] 00:00:00 00:00:00 (finding) Sex [birth year] Universit y of 00:00:00 00:00:00 [facility] Smoking Status Start Date Stop Date Source Tobacco smoking consumption Univ ersity of [facility] unknown Branch Never smoked tobacco [facility] Medications Ordered Filled Start Stop Current Ordering Indication Dosage Frequency Signature Comments Components Source Medication Medication Date Date Medication? Clinician (SIG) Name Name sulfur 2021-03- No [id number] 5mL 5 mL, Univ ers hexafluorid 2-20 12-20 Intravenou i ty of e microsphr 17:45: 17:45 s, ONCE, 1 [place] (LUMASON) 00 :00 dose, On Medica l injection 5 e Branch mL 03/06/22 at 1145, Routine
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 Medical Branch simvastatin 2021-03 Yes 20mg Take 20 mg Univers 10 mg 2-20 by mouth ity of tablet 16:08: at [place] [id number] bedtime. Medical Branch traMADoL 50 2021-03 Yes 50mg Take 50 mg Univers mg tablet 2-20 by mouth ity of 16:08: every 6 [place] 34 (six) Medical hours as Branch needed. Vitamin 2021-03 Yes 500ug Take 500 Unive rs B-12 100 2-20 mcg by ity of mcg tablet 16:08: mouth in [facility] as 34 the Medical morning. Branch levothyroxi 2021-03 Yes 25ug Take 25 Uni vers ne 25 mcg 2-20 mcg by ity of tablet 16:08: mouth [place] 34 every Medical morning. Branch amLODIPine 2021-03 Yes 5mg Take 5 mg Un jose a 5 mg tablet 2-20 by mouth ity of 16:08: in the [place] [id number] morning. Medical Branch vitamin 2021-03 Yes 500ug 500 mcg, Unive rs B-12 2-20 Oral, ity of (CYANOCOBAL 15:00: DAILY, [place] NUGENT) 00 First dose Medical tablet 500 on [facility] mcg 03/06/22 at 0900, Until Discontinu ed, Routine heparin 2021-03 Yes 5000U 5,000 Univers (porcine) 2-20 Units, ity of injection 14:00: [place] 5,000 Units 00 us, Q12H, Med ical First dose Branch on [facility] 03/06/22 at 0800, Until Discontinu ed, Routine levothyroxi 2021-03 Yes 25ug 25 mcg, Uni vers ne 2-20 Oral, ity of (SYNTHROID) 12:00: QAM-0600, [place] tablet 25 00 First dose Medi syeda mcg on [facility] Branch 03/06/22 at 0600, Until Discontinu ed, Routine iopamidol 2021-03- No [id number] 80mL 80 mL, Univers (ISOVUE 2-20 12-20 Intravenou ity o f 370-500 mL) 08:00: 08:15 s, ONCE, 1 [place] injection 00 :00 dose, On Medica l 80 mL [facility] 03/06/22 at 0215, Routine clopidogreL 2021-03 No 75mg 75 mg, Uni vers (PLAVIX) 75 05-07- Oral, ity of mg tablet 04:45: 21:32 DAILY, [place] 75 mg 00 :18 First dose Medical on [facility] 03/05/22 at 2245, Until Discontinu ed, Routine
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 approving Restricted medication : VINCENZO KOCHMAKurtis VU NaCl 0.9% 2021-03 No 1000mL at 999 Uni vers (NS) bolus 05-07 12- mL/hr, ity of infusion 01:30: 01:24 1,000 mL, Joss[place] as 1,000 mL 00 :00 IV Medical Infusion, Branch ONCE, 1 dose, On Sat03/05/22 at 1930, CYNTHIA acetaminoph 2021-03 No 1000mg 1,000 mg, Univers en 05-07 Oral, ity of (TYLENOL) 00:30: 23:56 ONCE, 1 [place] tablet 00 :00 dose, On Medical 1,000 mg [facility] 03/05/22 at 1830, Routine Amlodipine Yes Latisha 1 tablet Memoria Besylate 09-12 Fredy l 02:45: Jas 16 Vitamin Yes Latisha 1 tablet Me moria B-12 09-12 Fredy l 02:45: [place] 16 Orencia Yes Latisha 1 ml Memori a ClickJect 09-12 Fredy l 02:45: Jas 16 Simvastatin Yes Latisha TAKE 1 Memoria 09-12 Fredy TABLET BY l 02:45: MOUTH Jas 16 EVERY DAY IN THE EVENING Erythromyci Yes Latisha 1 tablet Memoria n 09-12 Fredy l 02:45: [place] 16 Vitamin D Yes Latisha 1 tablet Memoria 09-12 Fredy l 02:45: [place] 16 Levothyroxi Yes Latisha 1 tablet Memoria ne Sodium 09-12 Fredy on an l 02:45: empty [place] 16 stomach in the morning Multivitami Yes Latisha as Me moria n - Fredy directed l 02:45: Jas 16 Tramadol Yes Latisha 1 tablet M emoria HCl 6- Fredy as needed l 02:45: Jas 16 Vitamin D 0 Yes Latisha 1 tablet Memoria - Fredy l 02:45: Jas 16 Acetaminoph 0 Yes Latisha 1 tablet Memoria en-Codeine - Fredy as needed l #3 02:45: Jas 16 Vitamin A Yes Latisha not Carmelo loulou - Fredy defined l 02:45: Jas 16 Amlodipine Yes Latisha 1 tablet Memoria Besylate 09-12 Fredy l 02:45: Jas 16 Vitamin 0 Yes Latisha 1 tablet Me moria B-12 - Fredy l 02:45: Jas 16 Orencia Yes Latisha 1 ml Memori a ClickJect 09-12 Fredy l 02:45: Jas 16 Simvastatin 0 Yes Latisha TAKE 1 Memoria 09-12 Fredy TABLET BY l 02:45: MOUTH Jas 16 EVERY DAY IN THE EVENING Erythromyci Yes Latisha 1 tablet Memoria n - Fredy l 02:45: Jas Tramadol Yes Latisha 1 tablet M emoria HCl - Fredy as needed l 02:45: [place] 16 Acetaminoph Yes Latisha 1 tablet Memoria en-Codeine 09-12 Fredy as needed l #3 02:45: Jas Vitamin A Yes Latisha not Carmelo loulou 09-12 Fredy defined l 02:45: Jas 16 Multivitami Yes Latisha as Me moria n -28 Fredy directed l 02:45: Jas 16 Levothyroxi Yes Latisha 1 tablet Memoria ne Sodium - Fredy on an l 02:45: empty [place] 16 stomach in the morning Tramadol 0 Yes Latisha 1 tablet M emoria HCl 6- Fredy as needed l 00:00: Jas 00 Acetaminoph Yes Latisha 1 tablet Memoria en-Codeine 09-11 Fredy as needed l #3 00:00: Jas 00 Tramadol 2022-0 Yes Latisha 1 tablet M emoria HCl 6-27 Fredy as needed l 00:00: Acetaminoph 0 Yes Latisha 1 tablet Memoria en-Codeine 6- Fredy as needed l #3 00:00: erythromyci Yes 250mg Q.[id number] Take 250 UT n (Reyes-Tab) 4-22 [id number] mg by H ealth 250 MG EC 00:00: 3D mouth 3 tablet 00 (three) times a day. traMADol Yes 50mg Q.5D Take 50 mg UT (Ultram) 50 4-08 by mouth 2 He alth MG tablet 00:00: (two) 00 times a day if needed. acetaminoph Yes 1{tbl} Q.[id number] Take 1 UT en-codeine 4- [id number] tablet by [facility] (Tylenol 00:00: 3D mouth 3 #3) 300-30 00 (three) MG tablet times a day if needed. Orencia Yes UT ClickJect 3-31 Health 125 MG/ML 00:00: solution 00 auto-inject or amLODIPine Yes 5mg QD Take 5 mg UT (Norvasc) 5 3-08 by mouth 1 He alth MG tablet 00:00: (one) time 00 each day. levothyroxi Yes 100ug Take 100 U T ne 3-08 mcg by Health (Synthroid, 00:00: mouth 1 Levoxyl) 00 (one) time 100 MCG each day tablet in the morning. ON AN EMPTY STOMACH Methotrexat 2020-03 Yes Apple 3 tablets Memoria e 0-01 Vo l 02:45: Iron 2020-03 Yes Apple 1 tablet Mem oria 0-01 Vo l 02:45: Methotrexat 2020-03 Yes Apple 3 tablets Memoria e 0-01 Vo l 02:45: Iron 2020-03 Yes Apple 1 tablet Mem oria 0-01 Vo l 02:45: cyanocobala Yes DAILY UT min 6-04 Health (Vitamin 00:00: B-12) 1000 00 MCG tablet Vitamin A 3 Yes DAILY UT MG (08-19 [facility]) capsule 00:00: 00 Metoprolol Yes Latisha 1 tablet Memoria Tartrate 06-15 Fredy with food l 02:46: Jas Eliquis Yes Latisha as Memori a 06-15 Fredy directed l 02:46: Jas Clarinex-D Yes Latisha not Mem oria 24 Hour 06-15 Fredy defined l 02:46: Jas Metoprolol Yes Latisha 1 tablet Memoria Tartrate 06-15 Fredy with food l 02:46: Jas Clarinex-D Yes Latisha not Mem oria 24 Hour 06-15 Fredy defined l 02:46: Jas Eliquis Yes Latisha as Memori a 06-15 Fredy directed l 02:46: Jas Leflunomide 2020-1 Yes Apple 1 tablet Memoria 0-13 Vo l 00:00: Leflunomide 2020-1 Yes Apple 1 tablet Memoria 0-13 Vo l 00:00: Amlodipine 2020-0 Yes Latisha 1 tablet Memoria Besylate - Fredy l 02:45: Vitamin 2020-0 Yes Latisha 1 tablet Me moria B-12 12-04 Fredy l 02:45: [place] 15 Methotrexat 2020-0 Yes Latisha 6 tablets Memoria e 9-19 Fredy l 02:45: Jas 15 Methotrexat 2020-0 Yes Latisha 6 tablets Memoria e - Fredy l 02:45: [place] 15 Amlodipine 2020-0 Yes Latisha 1 tablet Memoria Besylate - Fredy l 02:45: Jas 15 Vitamin 2020-0 Yes Latisha 1 tablet Me moria B-12 - Fredy l 02:45: 15 Folic Acid 2020-0 Yes Apple 3 tablets Memoria 4-08 Vo l 00:00: [place] 00 Folic Acid 2020-0 Yes Apple 3 tablets Memoria 4-08 Vo l 00:00: Folic Acid 2020-0 Yes Latisha 3 tablet Memoria 1-13 Fredy l 00:00: Folic Acid 2020-0 Yes Apple 3 tablet Memoria 1-13 Vo l 00:00: Folic Acid 2020-0 Yes Latisha 3 tablet Memoria 1-13 Fredy l 00:00: Folic Acid 2020-0 Yes Apple 3 tablet Memoria 1-13 Vo l 00:00: Orencia 2020-0 Yes Apple 1 ml Carmelo loulou ClickJect 1-07 Vo l 00:00: Orencia 2020-0 Yes Apple 1 ml Carmelo loulou ClickJect 1-07 Vo l 00:00: Folic Acid 2019-0 Yes Apple 1 tablet Memoria 8-03 Vo l 02:45: Folic Acid 2019-0 Yes Apple 1 tablet Memoria 8-03 Vo l 02:45: [place] 36 Orencia 2019-0 Yes Apple 1 ml Carmelo loulou ClickJect 5-24 Vo l 00:00: Orencia 2019-0 Yes Apple 1 ml Carmelo loulou ClickJect 5-24 Vo l 00:00: Orencia 2019-0 Yes Latisha 1 ml Memori a ClickJect 5-23 Fredy l 00:00: Orencia 2019-0 Yes Latisha 1 ml Memori a ClickJect 5-23 Fredy l 00:00: Folic Acid 2019-0 Yes Apple 1 tablet Memoria 3-26 Vo l 00:00: Folic Acid 2019-0 Yes Apple 1 tablet Memoria 3-26 Vo l 00:00: Vital Signs Vital Name Observation Time Observation Value Comments Source Systolic blood 2022-03-06 107 mm[Hg] University pressure 21:00:00 [facility] Diastolic blood 2022-03-06 65 mm[Hg] [place] o f pressure 21:00:00 [facility] Heart rate 2022-03-06 65 /min [facility] 21:00:00 [facility] Body temperature 2022-03-06 36.61 [place] [facility] 21:00:00 [facility] Respiratory rate 2022-03-06 16 /min [facility] 21:00:00 [facility] Oxygen saturation 2022-03-06 100 /min [facility] in Arterial blood 21:00:00 [facility] by Pulse oximetry [place] Body height 2022-03-06 167.6 cm [facility] 03:27:00 [facility] Body weight 2022-03-06 68.04 kg [facility] 03:27:00 [facility] BMI 2022-03-06 24.21 kg/m2 [facility] 03:27:00 [facility] Systolic blood 2021-07-12 155 mm[Hg] [facility] pressure 14:12:00 Diastolic blood 2021-07-12 77 mm[Hg] [facility] pressure 14:12:00 Heart rate 2021-07-12 71 /min [facility] 14:12:00 Body temperature 2021-07-12 36.56 [place] [facility] 14:12:00 Body height 2021-07-12 167.6 cm [facility] 14:12:00 Body weight 2021-07-12 79.652 kg [facility] 14:12:00 BMI 2021-07-12 28.34 kg/m2 [facility] 14:12:00 Weight 2021-09-11 [facility] Eb n 15:30:00 [facility] 2021-09-11 [facility] n 15:30:00 Diastolic (mm Hg) 2021-09-11 [facility] ermann 15:30:00 Systolic (mm Hg) 2021-09-11 [facility] rmann 15:30:00 Weight 2020-12-15 [facility] Eb n 14:50:00 Height 2020-12-15 [facility] Eb n 14:50:00 [facility] Diastolic (mm Hg) 2020-12-15 [facility] ermann 14:50:00 Systolic (mm Hg) 2020-12-15 [facility] rmann 14:50:00 Systolic blood 2020-05-25 155 mm[Hg] Location: E; [place] [facility] pressure 13:07:00 Position: Sitting Diastolic blood 2020-05-25 82 mm[Hg] Location: [facility] Physici ans pressure 13:07:00 Position: Sitting Body height 2020-05-25 66 [in_us] [facility] 13:07:00 Weight 2020-05-25 188 [lb_av] [facility] 13:07:00 Body mass index 2020-05-25 30.34 kg/m2 [facility] (BMI) [Ratio] 13:07:00 Body temperature 2020-05-25 99.4 [degF] Method: [facility] 13:07:00 Temporal Heart Rate 2020-05-25 69 /min [facility] 13:07:00 BP Systolic 2018-12-17 120 mm[Hg] Location: LUE; [facility] 09:44:00 Position: Sitting BP Diastolic 2018-12-17 69 mm[Hg] Location: LUE; [facility] 09:44:00 Position: Sitting Height 2018-12-17 66 [in_us] [facility] 09:44:00 Weight 2018-12-17 196.6 [lb_av] [facility] 09:44:00 Body Mass Index 2018-12-17 31.73 kg/m2 [facility] Calculated 09:44:00 Temperature 2018-12-17 97.5 [degF] Method: Oral [facility] 09:44:00 Heart Rate 2018-12-17 57 /min [facility] 09:44:00 Weight 2018-08-07 [facility] Eb n 19:15:00 Height 2018-08-07 [facility] Eb n 19:15:00 Heart Rate 2018-08-07 [facility] Eb n 19:15:00 Diastolic (mm Hg) 2018-08-07 [facility] H ermann 19:15:00 Systolic (mm Hg) 2018-08-07 [facility] rmann 19:15:00 Weight 2018-07-02 [facility] Eb n 18:30:00 Height 2018-07-02 [facility] Eb n 18:30:00 Heart Rate 2018-07-02 [facility] Eb n 18:30:00 Diastolic (mm Hg) 2018-07-02 [facility] H ermann 18:30:00 Systolic (mm Hg) 2018-07-02 [facility] rmann 18:30:00 BP Systolic 2018-05-14 129 mm[Hg] [facility] 12:13:00 BP Diastolic 2018-05-14 69 mm[Hg] [facility] 12:13:00 Height 2018-05-14 66 [in_us] [facility] 12:13:00 Weight 2018-05-14 244 [lb_av] [facility] 12:13:00 Body Mass Index 2018-05-14 39.38 kg/m2 [facility] Calculated 12:13:00 Temperature 2018-05-14 97.7 [degF] [facility] 12:13:00 Heart Rate 2018-05-14 54 /min [facility] 12:13:00 Procedures Procedure Date / Time Performing Clinician Source Performed MR STROKE BRAIN WO 2022-03-06 20:20:35 Dominic Jordan [facility] TRANSTHORACIC ECHO (TTE) 2022-03-06 17:30:26 Tato Jordan [facility] COMPLETE W/ CONTRAST Medical [facility] CT ANGIOGRAM HEAD 2022-03-06 08:08:33 [facility] ANGIOGRAM NECK 2022-03-06 08:08:33 Maribell [facility] COMP. METABOLIC PANEL 2022-03-06 01:18:00 Maribell Batista [facility] ([id number]) [facility] [place] LIPID PANEL 2022-03-06 01:18:00 Dominic Jordan [facility] ([id number])(TOTAL [facility] [place] CHOLESTEROL, TRIGLYCERIDES, HDL) CBC WITH DIFF 2022-03-06 01:18:00 Maribell Batista [facility] GLYCOSYLATED HEMOGLOBIN 2022-03-06 01:18:00 Dominic Jordan [facility] (A1C) [facility] URINALYSIS 2022-03-06 01:18:00 Maribell Batista [facility] CT CERVICAL SPINE WO 2022-03-05 23:51:04 Maribell Batista [facility] CT HEAD WO CONTRAST 2022-03-05 23:51:04 Maribell Batista [facility] NOTICE OF PRIVACY 2022-03-05 22:27:09 Doctor Unassigned, No [facility] PRACTICES Name Medical Branch CONSENT/REFUSAL FOR 2022-03-05 22:26:16 Doctor Unassigned, No [facility] DIAGNOSIS AND TREATMENT Name Medical Branch [Q] COMPREHENSIVE 2020-05-25 00:00:00 [facility] METABOLIC PANEL W/eGFR (REFL) [Q] QUESTASSURED [place] 2020-05-25 00:00:00 [facility] VIT D, (D2,D3), LC/MS/MS [QL] CBC (INCLUDES 2020-05-25 00:00:00 [facility] DIFF/PLT) [QL] FOLATE, SERUM 2020-05-25 00:00:00 [facility] [QL] HEMOGLOBIN A1c 2020-05-25 00:00:00 [facility] [QL] IRON AND TOTAL IRON 2020-05-25 00:00:00 [facility] BINDING CAPACITY [QL] LIPID PANEL 2020-05-25 00:00:00 [facility] [QL] PTH, INTACT 2020-05-25 00:00:00 [facility] (WITHOUT CALCIUM) [QL] TSH, 3RD GENERATION 2020-05-25 00:00:00 [facility] W/REFLEX TO FT4 [QL] VITAMIN A (RETINOL) 2020-05-25 00:00:00 [facility] [QL] VITAMIN B1, WHOLE 2020-05-25 00:00:00 [facility] BLOOD [QL] VITAMIN B12 2020-05-25 00:00:00 [facility] [QL] VITAMIN E 2020-05-25 00:00:00 [facility] (TOCOPHEROL) MA Bone Density DXA Dual 2018-12-17 00:00:00 [facility] Energy 47663 [QLH] VITAMIN B1, WHOLE 2018-07-14 00:00:00 [facility] BLOOD US Extremity lower 2017-11-19 00:00:00 [facility] venous doppler bilat 43993 Encounters Start End Encounter Admission Attending Care Care Encounter Source Date/Time Date/Time Type Type Clinicians Facility Department ID 2022-07-16 Outpatient [id number] Memoria 16:45:11 [id number] -[id number] [facility]-[id number] Jas [id number] 2022-07-04 Outpatient [facility] [id number] [place] 10:36:59 [id number] Health 2022-03-05 Outpatient [id number] Memoria 18:47:39 [id number] -[id number] Jas [id number] [id number] 2021-07-13 Outpatient [facility] [id number] [place] 16:09:55 [id number] [facility] 2021-07-12 [facility] [id number] [place] 09:06:50 ANNA [id number] [facility] 2021-06-25 [facility] [id number] [place] 02:12:[id number] [place] [address] 2021-06-24 Outpatient [facility] [id number] [place] 17:14:34 [id number] [facility] 2021-06-22 Outpatient [facility] [id number] [place] 10:04:[id number] [place] [address] 2021-06-15 Outpatient [facility] [id number] [place] 15:17:[id number] [place] [address] 2021-03-06 [facility] [id number] [place] 10:19:23 [facility] 2022-07-18 2022-07-18 [facility] [id number] [place] 08:45:00 08:45:00 [facility] 2022-03-05 2022-03-06 Outpatient X DARREL KOCH [facility] [id number] [facility] 16:38:00 16:08:00 [facility]-05 2022-03-06 Emergency Maribell Batista 1.2. [id number] [id number] [facility] 16:38:00 16:08:00 Darrel Koch Coleman COBB 350.[facility]. [id number] Jossue as [id number] [place] [id number] [place] 2021-09-25 2021-09-25 Outpatient PRL - PRL - [id number] eClinic 20:42:00 20:42:00 [facility] 2021-09-11 2021-09-11 Outpatient JERED Nicolás RAMSAYU - [id number] eClinic 11:26:00 11:26:00 [facility] 2021-09-11 2021-09-11 Outpatient PRL - PRL - [id number] eClinic 10:30:00 10:30:00 [facility] 2021-08-19 2021-08-19 Outpatient PRL - PRL - [id number] eClinic 20:04:00 20:04:00 [facility] 2021-07-12 2021-07-12 Office DARIUSZ Fitzgerald [id number] [place] 09:00:00 09:39:20 Visit Anna VAN 350.1.13.58 [facility] [id number] [facility] [id number] 2021-06-09 2021-06-09 Outpatient JERED RAMSAYU - [id number] eClinic 12:40:00 12:40:00 [facility] 2021-05-28 2021-05-28 Outpatient PRL - PRL - [id number] eClinic 11:55:00 11:55:00 [facility] 2021-05-01 2021-05-01 Outpatient PRL - PRL - [id number] eClinic 12:13:00 12:13:00 [facility] 2021-03-27 2021-03-27 Outpatient PRL - PRL - [id number] eClinic 16:14:00 16:14:00 [facility] 2021-03-23 2021-03-23 Outpatient PRL - PRL - [id number] eClinic 19:34:00 19:34:00 [facility] 2021-03-13 2021-03-13 Outpatient PRL - PRL - [id number] eClinic 11:30:00 11:30:00 [facility] 2021-03-02 2021-03-02 Outpatient PRL - PRL - [id number] eClinic 18:08:00 18:08:00 [facility] 2021-03-02 2021-03-02 Outpatient PRL - PRL - [id number] eClinic 18:08:00 18:08:00 [facility] 2021-03-02 2021-03-02 Outpatient PRL - PRL - [id number] eClinic 18:07:00 18:07:00 [facility] 2021-01-27 2021-01-27 Outpatient PRL - PRL - [id number] eClinic 11:51:00 11:51:00 [facility] 2021-01-23 2021-01-23 Outpatient PRL - PRL - [id number] eClinic 08:52:00 08:52:00 [facility] 2020-12-15 2020-12-15 Outpatient PRL - PRL - [id number] eClinic 09:50:00 09:50:00 [facility] 2020-12-12 2020-12-12 Outpatient PRL - PRL - [id number] eClinic 18:32:00 18:32:00 [facility] 2020-12-01 2020-12-01 Outpatient JERED - JERED - [id number] eClinic 18:53:00 18:53:00 [facility] 2020-11-16 2020-11-16 Outpatient PRL - PRL - [id number] eClinic 18:51:00 18:51:00 [facility] 2020-11-02 2020-11-02 Outpatient PRL - PRL - [id number] eClinic 13:24:00 13:24:00 [facility] 2020-11-01 2020-11-01 Outpatient PRL - PRL - [id number] eClinic 12:44:00 12:44:00 [facility] 2020-10-30 2020-10-30 Outpatient JERED RAMSAYU - [id number] eClinic 16:16:00 16:16:00 [facility] 2020-10-06 2020-10-06 Outpatient PRL - PRL - [id number] eClinic 18:29:00 18:29:00 [facility] 2020-10-06 2020-10-06 Outpatient PRL - PRL - [id number] eClinic 11:49:00 11:49:00 [facility] 2020-09-14 2020-09-14 Outpatient JERED RAMSAYU - [id number] eClinic 09:10:00 09:10:00 [facility] 2020-08-06 2020-08-06 Outpatient PRL - PRL - [id number] eClinic 18:59:00 18:59:00 [facility] 2020-07-21 2020-07-21 Outpatient PRL - PRL - [id number] eClinic 21:12:00 21:12:00 [facility] 2020-07-16 2020-07-16 Outpatient PRL - PRL - [id number] eClinic 09:17:00 09:17:00 [facility] 2020-06-20 2020-06-20 Outpatient PRL - PRL - [id number] eClinic 19:17:00 19:17:00 [facility] 2020-06-14 2020-06-14 Outpatient JERED - JERED - [id number] eClinic 14:30:00 14:30:00 [facility] 2020-06-07 2020-06-07 Outpatient PRL - PRL - [id number] eClinic 21:19:00 21:19:00 [facility] 2020-05-31 2020-05-31 Outpatient PRL - PRL - [id number] eClinic 10:19:00 10:19:00 [facility] 2020-05-26 2020-05-26 Outpatient PRL - PRL - [id number] eClinic 11:46:00 11:46:00 [facility] 2020-05-25 2020-05-25 Outpatient PRL - PRL - [id number] eClinic 21:07:00 21:07:00 [facility] 2020-05-25 2020-05-25 Appointmen DESTINY [facility] [id number] [place] 12:45:00 12:45:00 t; ANNA FITZGERALD M.D. Invasive Physici ERIK, M.D. [facility] 2020-05-22 2020-05-22 Outpatient PRL - PRL - [id number] eClinic 13:17:00 13:17:00 [facility] 2020-05-05 2020-05-05 Outpatient PRL - PRL - [id number] eClinic 21:43:00 21:43:00 [facility] 2020-03-17 2020-03-17 Outpatient JERED - JERED - [id number] eClinic 09:20:00 09:20:00 [facility] 2020-03-02 2020-03-02 Outpatient PRL - PRL - [id number] eClinic 07:09:00 07:09:00 [facility] 2020-03-01 2020-03-01 Outpatient PRL - PRL - [id number] eClinic 12:25:00 12:25:00 [facility] 2020-02-06 2020-02-06 Outpatient PRL - PRL - [id number] eClinic 19:59:00 19:59:00 [facility] 2020-01-31 2020-01-31 Outpatient PRL - PRL - [id number] eClinic 05:04:00 05:04:00 [facility] 2020-01-19 2020-01-19 Outpatient JERED - JERED - [id number] eClinic 13:50:00 13:50:00 [facility] 2019-12-27 2019-12-27 Outpatient PRL - PRL - [id number] eClinic 15:16:00 15:16:00 [facility] 2019-12-07 2019-12-07 Outpatient PRL - PRL - [id number] eClinic 20:33:00 20:33:00 [facility] 2019-12-04 2019-12-04 Outpatient JERED Nicolás RAMSAYU - [id number] eClinic 10:30:00 10:30:00 [facility] 2019-12-01 2019-12-01 Outpatient PRL - PRL - [id number] eClinic 16:32:00 16:32:00 [facility] 2019-11-23 2019-11-23 Outpatient PRL - PRL - [id number] eClinic 11:30:00 11:30:00 [facility] 2019-10-06 2019-10-06 Outpatient PRL - PRL - [id number] eClinic 19:56:00 19:56:00 [facility] 2019-10-04 2019-10-04 Outpatient PRL - PRL - [id number] eClinic 22:40:00 22:40:00 [facility] 2019-09-27 2019-09-27 Outpatient PRL - PRL - [id number] eClinic 20:51:00 20:51:00 [facility] 2019-09-04 2019-09-04 Outpatient JERED Nicolás RAMSAYU - [id number] eClinic 12:00:00 12:00:00 [facility] 2019-09-03 2019-09-03 Outpatient PRL - PRL - [id number] eClinic 19:35:00 19:35:00 [facility] 2019-08-06 2019-08-06 Outpatient PRL - PRL - [id number] eClinic 05:38:00 05:38:00 [facility] 2019-07-24 2019-07-24 Outpatient PRL - PRL - [id number] eClinic 23:32:00 23:32:00 [facility] 2019-07-06 2019-07-06 Outpatient PRL - PRL - [id number] eClinic 21:47:00 21:47:00 [facility] 2019-06-30 2019-06-30 Outpatient JERED Nicolás RAMSAYU - [id number] eClinic 14:44:00 14:44:00 [facility] 2019-06-30 2019-06-30 Outpatient PRL - PRL - [id number] eClinic 13:45:00 13:45:00 [facility] 2019-06-24 2019-06-24 DARIUSZ Iyer [id number] [place] 10:15:00 10:15:00 t; ANNA FITZGERALD M.D. Physici ERIK, M.D. ans 2019-06-10 2019-06-10 Outpatient PRL - PRL - [id number] eClinic 19:45:00 19:45:00 [facility] 2019-05-18 2019-05-18 Outpatient JERED - JERED - [id number] eClinic 14:54:00 14:54:00 [facility] 2019-05-14 2019-05-14 Outpatient PRL - PRL - [id number] eClinic 11:41:00 11:41:00 [facility] 2019-04-13 2019-04-13 Outpatient JERED - JERED - [id number] eClinic 10:56:00 10:56:00 [facility] 2019-04-06 2019-04-06 Outpatient JERED - JERED - [id number] eClinic 11:52:00 11:52:00 [facility] 2019-03-30 2019-03-30 Outpatient JERED - JERED - [id number] eClinic 09:47:00 09:47:00 [facility] 2019-03-25 2019-03-25 Outpatient [id number] eClinic 12:01:00 12:01:00 [id number] alWorks [id number]. [id number] 2019-03-23 2019-03-23 Outpatient JERED - JERED - [id number] eClinic 12:27:00 12:27:00 [facility] 2019-01-30 2019-01-30 Outpatient JERED - JERED - [id number] eClinic 16:31:00 16:31:00 [facility] 2018-12-17 2018-12-17 DARIUSZ Iyer [id number] [place] 09:00:00 09:00:00 t; ANNA FITZGERALD M.D. Invasive Jessica CASTILLO M.D. [facility] 2018-12-03 2018-12-03 AppointDARIUSZ Frost [id number] [place] 10:15:00 10:15:00 t; ANNA FITZGERALD M.D. Physici ERIK, M.D. [facility] 2018-09-08 2018-09-08 Outpatient JERED - JERED - [id number] eClinic 11:51:00 11:51:00 [facility] 2018-09-03 2018-09-03 Appointmen DARIUSZ FITZGERALD UTP [id number] [place] 09:15:00 09:15:00 t; ANNA FITZGERALD M.D. Physici ERIK, M.D. [facility] 2018-08-07 2018-08-07 Outpatient JERED - JERED - [id number] eClinic 15:10:00 15:10:00 [facility] 2018-08-07 2018-08-07 Outpatient PRL - PRL - [id number] eClinic 14:15:00 14:15:00 [facility] 2018-07-17 2018-07-17 Outpatient JERED - JERED - [id number] eClinic 11:39:00 11:39:00 Rheumat[facility] 2018-07-02 2018-07-02 Outpatient PRL - PRL - [id number] eClinic 13:30:00 13:30:00 Rheumat[facility] 2018-07-02 2018-07-02 Outpatient JERED - JERED - [id number] eClinic 09:45:00 09:45:00 [facility] 2018-05-14 2018-05-14 AppointDARIUSZ Frost Shannon [id number] [place] 10:15:00 10:15:00 t; ANNA FITZGERALD M.D. Surgery Jessica CASTILLO M.D. Specialty [facility] 2018-02-26 2018-02-26 AppointDARIUSZ Frost UTP [id number] [place] 10:45:00 10:45:00 t; ANNA FITZGERALD M.D. Physici ERIK, M.D. ans 2018-01-15 2018-01-15 [facility]Y [facility] UTP [id number] [place] 13:00:00 13:00:00 t; ANNA FITZGERALD M.D. Physici ERIK, M.D. ans 2017-12-11 2017-12-11 [facility] UTP [id number] [place] 10:45:00 10:45:00 t; ANNA FITZGERALD M.D. Physici ERIK, M.D. ans 2017-11-13 2017-11-13 [facility] DARIUSZ FITZGERALD UTP [id number] [place] 09:15:00 09:15:00 t; ANNA FITZGERALD M.D. Physici ERIK, M.D. ans 2017-09-11 2017-09-11 [facility] WOLIN-RIKLI UTP UTP [id number] [place] 09:30:00 09:30:00 t; GRECIA Jaime Phys ici [address] [facility] 2017-07-31 2017-07-31 [facility] UTP [id number] [place] 10:45:00 10:45:00 t; ANNA FITZGERALD M.D. Physici ERIK, M.D. ans 2017-02-04 2017-02-04 [facility] WOLIN-RIKLI UTP UTP [id number] [place] 09:00:00 09:00:00 t; GRECIA Jaime Phys ici [address] ans [facility] 2017-01-02 2017-01-02 [facility] WOLIN-RIKLI UTP UTP [id number] [place] 13:30:00 13:30:00 t; GRECIA Jaime Phys ici [address] ans [facility] 2017-01-02 2017-01-02 [facility] UTP [id number] [place] 11:15:00 11:15:00 t; ANNA FITZGERALD M.D. Physici ERIK, M.D. ans 2016-12-03 2016-12-03 [facility]-[facility] [facility] UTP [id number] [place] 09:00:00 09:00:00 t; GRECIA Jaime Phys ici [address] ans [address] 2016-10-31 2016-10-[address] [facility] [id number] [place] 13:15:00 13:15:00 t; ANNA FITZGERALD M.D. Physici ERIK, M.D. ans Results Test Description Test Time Test Comments Results Result Comments Source STROKE Protocol - Transthoracic echo (TTE) 2022-03-06 21:08: 19 Test Item Value Reference Range Interpretation Comme nts Height (test code = 7894846696) in Weight (test code = 1713691920) lbs Systolic BP (test code = 7625262595) mmHg Diastolic BP (test code = 1091863357) mmHg Heart Rate (test code = 9390301681) bpm BSA (test code = 1807135512) 1.77 m2 LVOT diameter (test code = 3212953517) 2.10 cm LVOT area (test code = 4676354332) 3.50 cm2 Ao root diam (test code = 3621889393) 2.80 cm Aortic root (test code = 4556945863) 2.8 cm Ao root annulus (test code = 2.8 cm 5539824697) LA size (test code = 5220507102) 3.6 cm LVIDD (test code = 5971952651) 5.10 cm Left Ventricular End Diastolic Volume 122.0 mL by Teichholz Method (test code = 2144054) IVS (test code = 2114320643) 0.71 cm Interventricular Septum Diastolic 0.71 cm Thickness by 2D (test code = 2282543) LVPWD (test code = 1197177181) 0.76 cm PW (test code = 5860347836) 0.76 cm 0.6-1.1 EF(Teich) (test code = 8062443405) 23.60 % LVIDS (test code = 8257566472) 4.50 cm Left Ventricular End Systolic Volume 93.2 mL by Teichholz Method (test code = 0000810) FS (test code = 2756358240) 11 % EF - 2D (test code = 24276050) 23.60 % MV Peak E Mario (test code = 9433239563) 63.4 cm/s MV Peak A Mario (test code = 2470236349) 59.6 cm/s E/A ratio (test code = 5126833979) ratio E wave decelartion time (test code = 0.18 s 0210470817) MV Prop V (test code = 3413717063) 36.00 cm/s LAV(MOD-sp4) (test code = 5489901812) 50.30 mL Tapse (test code = 9180213432) 3.0 cm LVOT stroke volume (test code = 53.60 cm3 5381316845) LVOT peak mario (test code = 0231476062) 87.4 cm/s LVOT mn grad (test code = 9615551348) mmHg AV LVOT peak gradient (test code = mmHg 0287750040) LVOT peak VTI (test code = 4712423384) 15.5 cm LV V1 mean (test code = 2461714505) 54.80 cm/s Ao peak mario (test code = 4955492891) 123.5 cm/s AV area peak mario (test code = 2.5 cm2 4657921122) Ao max PG (test code = 1052685646) 6.10 mm[Hg] AV peak gradient (test code = mmHg 5843460611) LA Volume Index (BP) (test code = 29.3 mL/m2 3396035984) LA volume (BP) (test code = 51.9 mL 5325345191) LAV(MOD-sp2) (test code = 5371911654) 58.90 mL TR Peak Mario (test code = 7827477444) 197.6 cm/s Triscuspid Valve Regurgitation Peak mmHg Gradient (test code = 6212967450) Radiology Study observation (narrative) (test code = 77764-3) BRYANT (test code = BRYANT) ?Left?Ventricle: Left ventricle size is normal. Normal wall thickness. Normal wall motion. Normal systolic function with a visually estimated EF of 55 - 60%. Normal diastolic function. ?Right?Ventricle: Right ventricle size is normal. Normal systolic function. ?Left?Atrium: Left atrium size is normal. Saline contrast shows no shunt. ?Right?Atrium: Right atrium size is normal. ?Tricuspid?Valve: Trace transvalvular regurgitation. Insufficient regurgant jet to estimate RVSP. ?RA pressure is 0-5 mmHg. ?Pericardium: Small localized pericardial effusion present around the right ventricle. No indication of cardiac tamponade. Kim Argueta MD Left VentricleLeft ventricle size is normal. Normal wall thickness. Normal wall motion. Normal systolic function with a visually estimated EF of 55 - 60%. Normal diastolic function.Right VentricleRight ventricle size is normal. Normal systolic function.Left AtriumLeft atrium size is normal. Saline contrast shows no shunt.Right AtriumRight atrium size is normal.IVC/SVCIVC diameter is less than or equal to 21 mm and decreases greater than 50% during inspiration; therefore the estimated right atrial pressure is normal (~0-5 mmHg).Mitral ValveMitral valve structure is normal. Trace transvalvular regurgitation.Tricuspid ValveTricuspid valve structure is normal. Trace transvalvular regurgitation. Insufficient regurgant jet to estimate RVSP. RA pressure is 0-5 mmHg.Aortic ValveTricuspid. Mildly thickened cusps. No transvalvular regurgitation. No evidence of aortic stenosis.Pulmonic ValvePulmonic valve is normal in structure and function. Trace transvalvular regurgitation.Ascending AortaNormal sized aortic root.PericardiumSmall localized pericardial effusion present around the right ventricle. No indication of cardiac tamponade.Study DetailsA complete echocardiogram was performed using 2D, color flow Doppler and spectral Doppler. 5 mL of Lumason ultrasound enhancing agent used and saline contrast was performed. [facility][] LIPID [id number] 14:17:00 Test Item Value Reference Range Interpretation Comments CHOLESTEROL, TOTAL; 249 mg/dl <200 Above High Threshold (test code = 3-3) HDL CHOLESTEROL; 79 mg/dl See_Comment N [Automated message] Normal (test code = The syst em which 2084-11) generated this result transmit radha reference range : > OR = 50. The reference range was not used to interpret this result as normal/abnormal . TRIGLYCERIDES; 82 mg/dl <150 N Normal (test code = 2571-8) LDL-CHOLESTEROL; 151 {MG/DL Reference r dacia: Above High Threshold SYEDA} <100 De sirable range (test code = <100 mg/[place] [address]-3) primary prevent ion; <70 mg/dL for patients with C HD or diabetic patien ts with > or = 2 C HD risk factors. L DL-C is now calculat ed using the Darnell-Quintanilla calculation, wh ich is a validated novel method providin g better accuracy than the Friedewald equation in the estimation of L DL-C. Darnell SS et al . ARLENE. 2013;310( 19): 4114-2875 (http://educati on.[address] ST.. com/f aq/OGJ528) CHOL/HDLC RATIO 3.2 {CALC} <5.0 N (test code = CHOL/HDLC RATIO) NON HDL CHOLESTEROL 170 {MG/DL <130 For emeterio ents with (test code = NON HDL SYEDA} diabete s plus 1 CHOLESTEROL) major ASCVD ris k factor, treatin g to a non-HDL-C goa l of <100 mg/dL (LDL -C of <70 mg/dL) is considered a therapeutic opt ion. [facility][Q] COMPREHENSIVE METABOLIC PANEL W/eGFR (REFL)2020-05-25 14:17:00 Test Item Value Reference Range Interpretation [...] NON-AFR. 77 {ML/MIN/1.7} See_Comment N [Automated message] MONTENEGRIN (test The system ich code = eGFR generated this result NON-AFR. transmitted ref erence MONTENEGRIN) range: > OR = 6 0. The reference range was not used to int erpret this result as normal/abnormal . eGFR 89 {ML/MIN/1.7} See_Comment N [Automated message] MONTENEGRIN (test The system ich code = eGFR [...] mg/dl 0.2-1.2 N Normal (test code = 99517-3) ALKALINE 72 u/l 37-153 N PHOSPHATASE (test code = ALKALINE PHOSPHATASE) AST; Normal (test 30 u/l 10-35 N code = 1916-6) ALT; Above High 33 u/l 6-29 Threshold (test code = 1742-6) [facility][QL] IRON AND TOTAL IRON BINDING [id number] 14:17:00 Test Item Value Reference Range Interpretation Comments IRON, TOTAL (test code = 86 {mcg/dl} 45-160 N IRON, TOTAL) IRON BINDING CAPACITY (test 354 {mcg/dL ca} 250-450 N code = IRON BINDING CAPACITY) % SATURATION (test code = % 24 {% CALC} 16-45 N SATURATION) [facility][QL] CBC (INCLUDES DIFF/PLT)2020-05-25 14:17:00 Test Item Value Reference Range Interpretation Comments WHITE BLOOD CELL COUNT 3.8 {Thousand/u} 3.8-10.8 N (test code = WHITE BLOOD CELL COUNT) RED BLOOD CELL COUNT (test 3.74 {Million/uL} 3.80-5.10 code = RED BLOOD CELL COUNT) HEMOGLOBIN; Below Low 11.6 g/dl 11.7-15.5 Threshold (test code = 87415-1) HEMATOCRIT; Normal (test 35.7 % 35.0-45.0 N code = 4544-3) MCV; Normal (test code = 95.5 fL 80.0-100.0 N 787-2) MCHC; Normal (test code = 32.5 g/dl 32.0-36.0 N 24101-0) RDW; Normal (test code = 13.2 % 11.0-15.0 N 788-0) PLATELET COUNT; Normal 251 {Thousand/u} 140-400 N (test code = 777-3) MPV; Normal (test code = 11.4 fL 7.5-12.5 N 11423-4) ABSOLUTE NEUTROPHILS (test 1474 {cells/uL} 4378-7326 code = ABSOLUTE NEUTROPHILS) ABSOLUTE LYMPHOCYTES (test [...] Normal (test 8.2 % N code = 31154-0) EOSINOPHILS; Normal (test 0.5 % N code = 67804-7) BASOPHILS; Normal (test 0.5 % N code = 86865-1) [facility][QL] PTH, INTACT (WITHOUT CALCIUM)2020-05-25 14:17:00 Test Item Value Reference Range Interpretation Comments PARATHYROID 46 pg/ml 14-64 N Interpretive Gu yaz Intact PTH HORMONE, INTACT Calcium----- (test code = ---- ---Normal PARATHYROID Parathyroid Nor mal HORMONE, INTACT) NormalHypop arathyroidism Low or Low Normal LowHyperparathy roidism Primary Normal or High High Secondary High Normal or Low Tertiary High HighNon-Parathy roid Hypercalcemia L ow or Low Normal High [facility][QL] VITAMIN E (TOCOPHEROL)2020-05-25 14:17:00 Test Item Value Reference Range Interpretation Comments ALPHA-TOCOPHEROL 16.8 mg/L Reference R dacia 5.7-19.9 (test code = mg/L Levels of ALPHA-TOCOPHEROL) alpha-toco pherol <5 mg/L are consistent with Vitamin E deficiency in adults.Vitamin supplementation within 24 hours prior to blood draw may affect the accuracy of results. This t est was developed and i ts analytical perf ormance characteristics have been determined by [employer]. It has not been cleared or approved by theFDA. This as say has been validated pursu ant to the CLIA regulation s and is used for clinic al purposes. [id number]-[id number]-ZHZCGB <1.0 <4.4 This test was developed and PRANEETH (test code = its analyt ical performance [id number] characteri stics have been PRANEETH) determined by [employer]. It has not been cleared or approved [...] analytical performance characteristics have been determined by [employer] It has not been cleared or approved by theFDA. This assay has been validated pursuant to the CLIA regulations and is used for clinical purposes.[facility][QL] FOLATE, [id number] 14:17:00 Test Item Value Reference Range Interpretation Comments FOLATE, SERUM (test >24.0 N Referenc e Range Low: <3.4 code = FOLATE, SERUM) Border line: 3.4-5.4 Normal: >5.4 [facility][QL] VITAMIN [id number] 14:17:00 Test Item Value Reference Range Interpretation Comments VITAMIN B12 (test code = VITAMIN 1424 pg/ml 200-1100 B12) [facility][QL] TSH, 3RD GENERATION W/REFLEX TO [id number] 14:17:00 Test Item Value Reference Range Interpretation Comments TSH, 3RD GENERATION 0.56 {MIU/L} N Referenc e Range > or W/REFLEX TO FT4 (test = 20 Y ears 0.40-4.50 code = TSH, 3RD Ra nges GENERATION W/REFLEX First tr imester TO FT4) 0.26-2.66 Secon d trimester 0.55- 2.73 Third trimester 0.43-2.91 [facility][QL] VITAMIN B1, WHOLE [id number] 14:17:00 Test Item Value Reference Range Interpretation Comments VITAMIN B1, WHOLE 127 nmol/L 78-185 Vitamin isaac pplementation BLOOD (test code = within 24 hours prior VITAMIN B1, WHOLE toblood dr [place] may affect BLOOD) the accuracy of results. This test was d jeaned and its analyti syeda performance characteristics have been determined by [employer]. It has not been cleared or approved by theFDA. This assay has been validated pursuant to the CLIA reg ulations and is used for clinical purposes. [facility][QL] HEMOGLOBIN [id number] 14:17:00 Test Item Value Reference Range Interpretation Comments HEMOGLOBIN A1c; 5.0 {% of <5.7 N For the purp ose of Normal (test code total} screening for the = 4548-4) presence ofdiab etes: <5.7% Consisten t with the absence of diabetes5.7-6.4 % Consistent with increased risk for diabetes (predi abetes)> or =6.5% Consis tent with diabetes T his assay result is consistent with a decreased risko f diabetes. Curre ntly, no consensus exist s regarding use ofhemoglobin A1 c for diagnosis of di abetes in children. Ac cording to [place] [employer] (ADA)guidelines , hemoglobin A1c <7.0% represents optimalcontrol in non- di abetic patients. Differentmetric s may apply to specif ic patient populat ions. Standards of Me dical Care in Diabete s(ADA). [facility][QL] VITAMIN A (RETINOL)2020-05-25 14:17:00 Test Item Value Reference Range Interpretation Comments VITAMIN A (test 71 {mcg/dl} 38-98 Clin Chem Vol. 34.No.8. code = VITAMIN A) [id number] supplementation within 24 hours prior to blood draw may affect the accuracy of results. Thi s test was developed and i ts analytical perf ormance characteristics have been determined by [employer]. It has not been cleared or approved by theFDA. This assay has been validated pursuant to the CLIA reg ulations and is used for clinical purposes. REPORT COMMENT:FASTING:UNKNOWN[facility][Q] QUESTASSURED 25-OH VIT D, (D2,D3), LC/MS/[id number] 14:17:00 Test Item Value Reference Range Interpretation Comments VITAMIN D, <4.0 ng/ml 30-100 (Note)Reference range: Not 25-OH, D2 established Thi s test was (test code = developed and i ts analytical VITAMIN D, performancechar acteristics have 25-OH, D2) been determined by [employer]. It has not been cleared or approved by the US Food and Drug Administra tion. Thisassay has been valida radha pursuant to the CLIA regula tion and is usedfor Clinica l purposes.[facility] [id number] [facility] [address] [id number] 00MicAubrey Mora N ote 1 Note 1 For additional info rmation, please refer to [email or web address] [email or web address]/FAQ1 99 (This link is being provided for informational/e ducational purposes only.) VITAMIN D, 65 ng/ml Reference range : Not 25-OH, D3 established (test code = VITAMIN D, 25-OH, D3) Reference range: Not establishedREPORT COMMENT:FASTING:UNKNOWN[facility]
[2022-07-16] MEDS ORDERED: TETRACAINE HCL 0.5% 4ML OPTH ONE (17:25)
[2022-07-16] MEDS ORDERED: FLUORESCEIN SODIUM 1 MG/WRAP ONE (17:25)
--- NOTE | 2022-07-16 17:28 | ER ---
Nurse's Notes [facility] Name: Mahsa Joseph Age: 51 yrs Sex: Female : 1970 Arrival Date: 07/16/2022 Time: 16:42 Bed 11 Private MD: Diagnosis: Preseptal cellulitis Presentation: 07/16 16:53 Chief complaint: Patient states: "Last Saturday I ended up having shingles. I went to [facility] the urgent care in [place] [employer] and diagnosis me with it Saturday. Last night, I started having swelling under my left eye. I went back to the urgent care and they sent me to the ER". Coronavirus screen: At this time, the client does not indicate any symptoms associated with coronavirus-19. Ebola Screen: No symptoms or risks identified at this time. Initial Sepsis Screen: Does the patient meet any 2 criteria? No. Patient's initial sepsis screen is negative. Does the patient have a suspected source of infection? No. Patient's initial sepsis screen is negative. Risk Assessment: Do you want to hurt yourself or someone else? Patient reports no desire to harm self or others. Onset of symptoms was July 16, 2022. 16:53 Method Of Arrival: Ambulatory [facility] 16:53 Acuity: MILAGROS 4 mb9 Triage Assessment: 16:57 General: Appears in no apparent distress. Behavior is anxious. Pain: Denies pain. 9 EENT:. Neuro: Level of Consciousness is awake, alert, obeys commands, Oriented to person, place, time, situation, Appropriate for age. Cardiovascular: Patient's skin is warm and dry. Respiratory: Airway is patent Respiratory effort is even, unlabored, Respiratory pattern is regular, symmetrical. Derm: Rash noted that is on forehead. Musculoskeletal: Swelling present in left eye. 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 - Social history:: Smoking status: Patient denies any tobacco usage or history of. Screenin:59 [facility] ED Fall Risk Assessment (Adult) History of falling in the last 3 months, mb9 including since admission No falls in past 3 months (0 pts) Confusion or Disorientation No (0 pts) Intoxicated or Sedated No (0 pts) Impaired Gait No (0 pts) Mobility Assist Device Used No (0 pt) Altered Elimination No (0 pt) Score/Fall Risk Level 0 - 2 = Low Risk Oriented to surroundings, Maintained a safe environment, Educated pt \\T\\ family on fall prevention, incl call for assistance when getting out of bed. Abuse screen: Denies threats or abuse. Nutritional screening: No deficits noted. Tuberculosis screening: No symptoms or risk factors identified. Assessment: 16:58 Reassessment: see triage assessment. mb9 17:48 Reassessment: Patient appears in no apparent distress at this time. Patient and/or db family updated on plan of care and expected duration. Pain level reassessed. Patient is alert, oriented x 3, equal unlabored respirations, skin warm/dry/pink. Patient states feeling better. Vital Signs: 16:53 BP 132 / 91; Pulse 74; Resp 20; Temp 97.9; Pulse Ox 100% ; Weight 89.81 kg; Height 5 mb9 ft. 6 in. ; 17:48 BP 134 / 89; Pulse 76; Resp 18 S; Pulse Ox 100% ; db 16:53 Body Mass Index 31.96 (89.81 kg, 167.64 cm) mb9 ED Course: 16:43 Patient arrived in ED. ts1 16:50 Dru Still PA is PHCP. m 16:50 Pino Pereyra MD is Attending Physician. [facility] 16:55 Triage completed. mb9 16:57 Arm band placed on. mb9 16:59 Bed in low position. Call light in reach. Side rails up X 1. Client placed on mb9 continuous cardiac and pulse oximetry monitoring. NIBP monitoring applied. 17:16 Freda Taylor, RIVERA is Primary Nurse. db 17:28 Angelo Schreiber MD is Referral Physician. ashley 17:48 No provider procedures requiring assistance completed. Patient did not have IV access db during this emergency room visit. Administered Medications: 17:19 Drug: Tetracaine Ophthalmic Drops 0.5 % 1 drops {Note: given to provider for db administration.} Route: Ophthalmic; Site: left eye; 17:50 Follow up: Response: No adverse reaction db Medication: 16:58 VIS not applicable for this client. mb9 Outcome: 17:28 Discharge ordered by MD. ashley 17:48 Discharged to home ambulatory. db 17:48 Condition: stable 17:48 Discharge instructions given to patient, Instructed on discharge instructions, follow up and referral plans. Prescriptions given X 1. 17:50 Patient left the ED. db Signatures: Dru Still PA PA jmm Benton, Danielle RN RN Adrianne Lopez RN RN mb9 Keisha Hazel, YARELIS PAS ts1
--- NOTE | 2022-07-16 17:28 | EDPHYS ---
Physician Documentation [facility] Name: Mahsa Joseph Age: 51 yrs Sex: Female : 1970 Arrival Date: 07/16/2022 Time: 16:42 Bed 11 Private MD: ED Physician Pino Pereyra HPI: 07/16 16:59 This 51 yrs old Black Female presents to ER via Ambulatory with complaints of Eye jmm Swelling. 16:59 Is a 51-year-old female with a history of hypertension hypothyroidism autoimmunity that jmm presents emerged department with complaints of left lower lid swelling beginning yesterday. Symptoms have partially alleviated. Patient is currently taking Valtrex for shingles to the forehead. Denies fever. Denies pain. Denies changes in vision. 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 - Social history:: Smoking status: Patient denies any tobacco usage or history of. ROS: 16:59 Constitutional: Negative for fever, chills, and weight loss, Cardiovascular: Negative jmm for chest pain, palpitations, and edema, Respiratory: Negative for shortness of breath, cough, wheezing, and pleuritic chest pain. 16:59 Skin: Positive for rash. 16:59 All other systems are negative. Exam: 16:59 Constitutional: This is a well developed, well nourished patient who is awake, alert, jmm and in no acute distress. Head/Face: atraumatic. 16:59 ENT: Moist Mucus Membranes Neck: Trachea midline, Supple Chest/axilla: Normal chest wall appearance and motion. Cardiovascular: Regular rate and rhythm. No edema appreciated Respiratory: Normal respirations, no respiratory distress appreciated Abdomen/GI: Non distended Back: Normal ROM Skin: General appearance color normal MS/ Extremity: Moves all extremities, no obvious deformities appreciated, no edema noted to the lower extremities Neuro: Awake and alert Psych: Behavior is normal, Mood is normal, Patient is cooperative and pleasant 16:59 Eyes: Extraocular movements: intact throughout, Conjunctiva: normal, Corneas: are normal, no evidence of abrasion, no foreign body, No dendritic lesions, a fluorescein strip employed to appreciate the findings. 16:59 Eyes: Mild swelling to the left lower lid, nontender to palpation. [facility] Vital Signs: 16:53 BP 132 / 91; Pulse 74; Resp 20; Temp 97.9; Pulse Ox 100% ; Weight 89.81 kg; Height 5 mb9 ft. 6 in. ; 17:48 BP 134 / 89; Pulse 76; Resp 18 S; Pulse Ox 100% ; db 16:53 Body Mass Index 31.96 (89.81 kg, 167.64 cm) mb9 MDM: 16:59 Patient medically screened. [facility] 18:26 Data reviewed: vital signs, nurses notes. [facility] 18:27 Differential diagnosis: Herpes zoster, preseptal cellulitis, orbital cellulitis. I [facility] considered the following discharge prescriptions or medication management in the emergency department Medications were administered in the Emergency Department. See MAR. Counseling: I had a detailed discussion with the patient and/or guardian regarding: the historical points, exam findings, and any diagnostic results supporting the discharge/admit diagnosis, the need for outpatient follow up, to return to the emergency department if symptoms worsen or persist or if there are any questions or concerns that arise at home. ED course: Did not appreciate dendritic lesions on Patel lamp examination. Patient encouraged to continue Valtrex and will be given prophylactic antibiotics as well. Patient otherwise advised to follow-up ophthalmology and otherwise given strict return precautions. Patient understood and agrees plan of care. 07/16 17:00 Order name: Eye Tray; Complete Time: 17:19 [facility] 07/16 17:00 Order name: Fluoresene Opth strip; Complete Time: 17:19 [facility] Administered Medications: 17:19 Drug: Tetracaine Ophthalmic Drops 0.5 % 1 drops {Note: given to provider for db administration.} Route: Ophthalmic; Site: left eye; 17:50 Follow up: Response: No adverse reaction db Disposition: 07/17 07:13 Co-signature as Attending Physician, Pino Pereyra MD I reviewed the patient's care rn provided by the Advanced Practice Provider and agree with the diagnosis and treatment plan. Disposition Summary: 07/16/22 17:28 Discharge Ordered Location: Home [facility] Condition: Stable [facility] Diagnosis - Preseptal cellulitis [facility] Followup: [facility] - With: Angelo Schreiber MD - When: 2 - 3 days - Reason: Recheck today's complaints, Continuance of care, Re-evaluation by your physician Discharge Instructions: - Discharge Summary Sheet [facility] - Preseptal Cellulitis, Adult [facility] Forms: - Medication Reconciliation Form [facility] - Thank You Letter [facility] - Antibiotic Education [facility] - Prescription Opioid Use [facility] Prescriptions: - cefdinir 300 mg Oral capsule - take 1 capsule by ORAL route 2 times per day for 10 days; 20 capsule; Refills: [facility] 0, Product Selection Permitted Signatures: Dru Still PA PA jmm Nieto, Roman, MD MD rn Benton, Danielle, RN RN Adrianne Lopez RN RN mb9
[2022-07-16 18:49] VITALS: O2SAT 100
[2022-07-16 18:51] VITALS: BP 132/91; TEMP 97.9
== END 2022-07-16 17:50 | disposition home or self-care (01) ==
LOC: ER 16:42
DX: L03.213 Periorbital cellulitis (principal)
CPT/HCPCS: 99283